=== PATIENT | female | born 1940 | race Hispanic/Latino ===

== ENCOUNTER 2017-10-28 00:47 | Emergency (ER) | payer MEDICARE, MEDICAID ==
[2017-10-28 00:59] VITALS: BMI 19.7
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
[2017-10-28 07:41] VITALS: BP 143/93; PULSE 94; RESP 16; TEMP 97.6; O2SAT 97
== END 2017-10-28 07:42 | disposition home or self-care (01) ==
LOC: ED 00:47
DX: L97.519 Non-pressure chronic ulcer of other part of right foot with unspecified severity (principal); I10 Essential (primary) hypertension; E78.00 Pure hypercholesterolemia, unspecified; E03.9 Hypothyroidism, unspecified

== ENCOUNTER 2017-10-31 22:54 | Inpatient (IN) | payer MEDICARE, MEDICAID ==
[2017-10-31 22:55] VITALS: BMI 19.7
--- NOTE | 2017-10-31 23:33 | ED PDOC ---
Arrival/HPI - General Chief Complaint: Lower Extremity Problem/Injury Time Seen by Provider: 10/31/17 23:21 Historian: Patient - History of Present Illness Narrative History of Present Illness (Text): 10/31/17 23:32 Yas Cash is a 77 year old female, whose past medical history includes MRSA to right foot, recent surgical removal of cancerous skin lesion to face, hypertension, anxiety, arthritis, bipolar disorder, gastric ulcer, and hypothyroidism, who presents to the Emergency department brought in by EMS complaining of right foot ulcer. Patient states she was recently discharged from [facility] following 2 week stay for treatment of right foot MRSA with antibiotics. Patient states she was placed on PO Cipro and Doxycycline , which she stopped taking because she denies any relief. Patient now complaining of worsening pain and redness to right foot ulcer, consistent with previous episodes of MRSA. Patient was advised by her PMD to come to the ER for further evaluation. Patient denies any recent trauma, decreased range of motion , weakness/numbness/tingling in the extremity, fever, chills, chest pain, shortness of breath, nausea, vomiting, dizziness, or any other complaints. Symptom Onset: Gradual Symptom Course: Unchanged Activities at Onset: Light Context: Home Past Medical History - Provider Review Nursing Documentation Reviewed: Yes - Infectious Disease Hx of Infectious Diseases: None - Cardiac Hx Cardiac Disorders: Yes Hx Hypertension: Yes Hx Peripheral Edema: Yes (chronic edema and redness) - Pulmonary Hx Respiratory Disorders: Yes Hx Pneumonia: Yes - Neurological Hx Neurological Disorder: Yes Hx Migraine: Yes - HEENT Hx HEENT Disorder: Yes Hx Cataracts: Yes (s/p surgery) - Renal Hx Renal Disorder: Yes Hx Pyelonephritis: Yes - Endocrine/Metabolic Hx Endocrine Disorders: Yes Hx Hypothyroidism: Yes - Hematological/Oncological Hx Cancer: No - Integumentary Hx Dermatological Disorder: No Other/Comment: 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 - Musculoskeletal/Rheumatological Hx Musculoskeletal Disorders: Yes Hx Arthritis: Yes Hx Fractures: Yes - Gastrointestinal Hx Gastrointestinal Disorders: Yes Hx Gastritis: Yes - Genitourinary/Gynecological Hx Genitourinary Disorders: No - Psychiatric Hx Psychophysiologic Disorder: Yes Hx Anxiety: Yes Hx Bipolar Disorder: Yes Hx Substance Use: No - Surgical History Hx Appendectomy: Yes Hx Cholecystectomy: Yes Hx Tonsillectomy: Yes - Anesthesia Hx Anesthesia: Yes Hx Anesthesia Reactions: No - Suicidal Assessment Feels Threatened In Home Enviroment: No Family/Social History - Physician Review Nursing Documentation Reviewed: Yes Family/Social History: Unknown Family HX Smoking Status: Never Smoked Hx Alcohol Use: No Hx Substance Use: No Hx Substance Use Treatment: No Allergies/Home Meds Allergies/Adverse Reactions: Allergies acetaminophen [From Percocet] Allergy (Verified 10/28/17 00:57) urticaria to "IV percocet" oxycodone HCl [From Percocet] Allergy (Verified 10/28/17 00:57) urticaria to "IV percocet" Sulfa (Sulfonamide Antibiotics) Allergy (Verified 10/28/17 00:57) SHORTNESS OF BREATH aspirin Adverse Reaction (Verified 10/28/17 00:57) pt has ulcer naproxen Adverse Reaction (Verified 10/28/17 00:57) pt has ulcer Home Medications: Home Meds Medication Instructions Recorded Confirmed Clonidine HCl [Clonidine HCl] 0.1 mg PO BID 08/23/14 07/14/15 Acetaminophen/Butalbital/Caf 1 tab PO DAILY PRN 07/14/15 07/14/15 [Fioricet] Cholecalciferol (Vitamin D3) 2,000 unit PO DAILY 07/14/15 07/14/15 [Vitamin D] Levothyroxine [Synthroid] 125 mcg PO DAILY 07/14/15 07/14/15 Lisinopril [Zestril] 10 mg PO DAILY 07/14/15 07/14/15 Ranitidine HCl [Zantac] 300 mg PO DAILY 07/14/15 07/14/15 Simvastatin [Zocor] 20 mg PO DAILY 07/14/15 07/14/15 Ubidecarenone [Coenzyme Q10] 200 mg PO DAILY 07/14/15 07/14/15 amLODIPine [Norvasc] 10 mg PO DAILY 07/14/15 07/14/15 Review of Systems - Physician Review All systems were reviewed & negative as marked: Yes - Review of Systems Constitutional: Normal. absent: Fevers Eyes: Normal ENT: Normal Respiratory: Normal. absent: SOB, Cough Cardiovascular: Normal. absent: Chest Pain Gastrointestinal: Normal. absent: Abdominal Pain, Diarrhea, Nausea, Vomiting Genitourinary Female: Normal. absent: Dysuria, Frequency, Hematuria, Urine Output Changes Musculoskeletal: Normal. absent: Back Pain, Neck Pain Skin: Other (+right foot MRSA) Neurological: Normal. absent: Headache, Dizziness Endocrine: Normal Hemo/Lymphatic: Normal Psychiatric: Normal Physical Exam Vital Signs Reviewed: Yes Vital Signs Temp Pulse Resp BP Pulse Ox 11/01/17 00:48 97.6 F 98 H 17 136/80 98 Temperature: Afebrile Blood Pressure: Normal Pulse: Regular Respiratory Rate: Normal Appearance: Positive for: Well-Appearing, Non-Toxic, Comfortable Pain Distress: None Mental Status: Positive for: Alert and Oriented X 3 - Systems Exam Head: Present: Normocephalic, Other (Surgical wound to left face with packing in place status post excision of skin cancer) Pupils: Present: PERRL Extroacular Muscles: Present: EOMI Conjunctiva: Present: Normal Mouth: Present: Moist Mucous Membranes Neck: Present: Normal Range of Motion Respiratory/Chest: Present: Clear to Auscultation, Good Air Exchange. No: Respiratory Distress, Accessory Muscle Use Cardiovascular: Present: Regular Rate and Rhythm, Normal S1, S2. No: Murmurs Abdomen: No: Tenderness, Distention, Peritoneal Signs Back: Present: Normal Inspection Upper Extremity: Present: Normal Inspection. No: Cyanosis, Edema Lower Extremity: Present: Normal ROM, Erythema (Dried ulcer to right foot with surrounding erythema and warmth), Neurovascularly Intact, Capillary Refill < 2 s. No: Edema, Tenderness, Swelling Neurological: Present: GCS=15, CN II-XII Intact, Speech Normal Skin: Present: Warm, Dry, Normal Color. No: Rashes Psychiatric: Present: Alert, Oriented x 3, Normal Insight, Normal Concentration Medical Decision Making ED Course and Treatment: 10/31/17 23:32 Impression: 77 year old female complaining of right foot MRSA. Plan: -- Labs, cardiac enzymes, blood cultures -- Vancomycin -- Zosyn -- Reassess and disposition Prior Visits: Notes and results from previous visits were reviewed. Progress Notes: 11/01/17 02:[address] Lebron, who's aware and agrees with plan. Accepts patient into her service. Patient will go to [facility] for cellulitis of the foot, history of MRSA. Requests Dr. Conroy on consult. - Lab Interpretations Lab Results: 10/31/17 23:36 10/31/17 23:36 Lab Results 10/31/17 23:36: WBC 12.9 H, RBC 4.18, Hgb 12.1, Hct 36.6, MCV 87.6, MCH 28.9, MCHC 33.1, RDW 16.0 H, Plt Count 400, MPV 9.5 10/31/17 23:36: Sodium 138, Potassium 4.2, Chloride 100, Carbon Dioxide 29, Anion Gap 14, BUN 44 H, Creatinine 0.7, Est GFR ( Amer) > 60, Est GFR ( Non-Af Amer) > 60, Random Glucose 122 H, Calcium 9.4, Total Bilirubin 0.5, AST 30, ALT 30, Alkaline Phosphatase 102, Total Protein 6.9, Albumin 4.1, Globulin 2.8, Albumin/Globulin Ratio 1.4 I have reviewed the lab results: Yes - Medication Orders Current Medication Orders: Discontinued Medications Vancomycin HCl (Vancomycin 1gm) 1 gm in 250 mls @ 167 mls/hr IVPB STAT STA PRN Reason: Protocol Stop: 11/01/17 01:10 Last Admin: 11/01/17 01:31 Dose: 167 mls/hr eMAR Start Stop Document 11/01/17 01:31 IT (Rec: 11/01/17 01:31 IT [id number]) Intravenous Solution Start Date 11/01/17 Start Time 01:31 Piperacillin Sod/Tazobactam Sod (Zosyn 3.375 In Ns 100ml) 100 mls @ 200 mls/hr IV STAT STA PRN Reason: Protocol Stop: 11/01/17 00:07 Last Admin: 11/01/17 00:23 Dose: 200 mls/hr eMAR Start Stop Document 11/01/17 00:23 IT (Rec: 11/01/17 00:23 IT [id number]) Intravenous Solution Start Date 11/01/17 Start Time 00:23 - Scribe Statement The provider has reviewed the documentation as recorded by the Sae Lafleur Provider Scribe Attestation: All medical record entries made by the Scribe were at my direction and personally dictated by me. I have reviewed the chart and agree that the record accurately reflects my personal performance of the history, physical exam, medical decision making, and the department course for this patient. I have also personally directed, reviewed, and agree with the discharge instructions and disposition. Disposition/Present on Arrival - Present on Arrival Any Indicators Present on Arrival: No History of DVT/PE: No History of Uncontrolled Diabetes: No Urinary Catheter: No History of Decub. Ulcer: No History Surgical Site Infection Following: None - Disposition Have Diagnosis and Disposition been Completed?: Yes Diagnosis: Cellulitis, MRSA cellulitis Disposition: HOSPITALIZED Disposition Time: 02:38 Patient Problems: Current Active Problems Problem Status Onset Cellulitis Acute Condition: STABLE Discharge Instructions (ExitCare): Cellulitis (ED) Forms: [employer] (Albanian)
[2017-10-31] MEDS ORDERED: Piperacillin/Tazobact 3.375 gm 100 ML IV STA (23:38)
[2017-10-31] MEDS ORDERED: Vancomycin 1gm in NS 250ml 1 GM/250 ML BAG IVPB STA (23:41)
[2017-11-01 00:18] LABS: HEMOGLOBIN 12.1 g/dL (12.0-16.0); MEAN CELL VOLUME 87.6 fl (80.0-105.0); MEAN CORPUSCULAR HEMOGLOBIN 28.9 pg (25.0-35.0); MEAN CORPUSCULAR HGB CONC 33.1 g/dl (31.0-37.0); MEAN PLATELET VOLUME 9.5 fl (7.0-11.0); RBC 4.18 10^6/uL (3.5-6.1); WHITE BLOOD COUNT 12.9 10^3/ul (4.5-11.0)
[2017-11-01 00:25] LABS: ALB/GLOB RATIO 1.4 (1.1-1.8); ALBUMIN 4.1 g/dL (3.0-4.8); CALCIUM 9.4 mg/dL (8.4-10.5); GFR AFRICAN-AMERICAN > 60; GFR NON-AFRICAN AMERICAN > 60
[2017-11-01 00:28] LABS: ALT/SGPT 30 U/L (7-56); AST/SGOT 30 U/L (14-36); BLOOD UREA NITROGEN 44 mg/dL (7-21)
[2017-11-01] MEDS ORDERED: Sodium Chloride 0.9% 1,000 ML IV STA (02:38)
[2017-11-01] MEDS ORDERED: Apap-Butalbital-Caffeine 325-50-40mg Tab PO ONE (06:25)
[2017-11-01] MEDS ORDERED: Apap-Butalbital-Caffeine 325-50-40mg Tab PO PRN ×2 (11:43→12:52)
[2017-11-01] MEDS ORDERED: Levothyroxine 125 MCG TAB PO SCH (13:00)
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
[2017-11-01] MEDS: Cefepime 1gm in NS 100ml 1 GM/100 ML BAG IVPB SCH ×2 (14:45→22:46)
--- NOTE | 2017-11-01 15:57 | CON ---
DATE: 11/01/2017 LOCATION: The patient is seen earlier this morning in room 371, bed 2. CHIEF COMPLAINT: Right ankle erythema times several days. HISTORY OF PRESENT ILLNESS: This is a 77-year-old female with a history of MRSA of the right foot, history of cancer of the skin, cancer of the face, she had biopsy with resection, gastric ulcer, hypertension, anxiety, arthritis, bipolar, hypothyroidism, peripheral edema, history of E. coli urinary tract infection in 2014. Admitted on this admission with erythema of the right medial aspect of the right ankle. REVIEW OF SYSTEMS: Reveals no fevers and no chills. No nausea or vomiting. No chest pain. No abdominal pain, diarrhea or constipation. Review of systems reveals 12-point review of systems is performed. PAST MEDICAL HISTORY: Significant for hypertension, bipolar, hypothyroidism, skin cancer of the face, anxiety, arthritis and peripheral edema and a history of E. coli urinary tract infection in 2014. PAST SURGICAL HISTORY: Significant for appendectomy, cholecystectomy. ALLERGIES: THE PATIENT IS ALLERGIC TO SULFA, ASPIRIN, NAPROXEN AND OXYCODONE. MEDICATIONS AT HOME: Reveal the patient to be on tramadol, Norvasc, Zocor, Zantac. PHYSICAL EXAMINATION: GENERAL: The patient is in bed, in no acute distress. VITAL SIGNS: Temperature of 97, blood pressure is 120/80, respiratory rate of 18, heart rate 98-106. HEENT: Examination of HEENT is unremarkable. NECK: Supple. LUNGS: Have decreased breath sounds. HEART: Normal S1 and S2. ABDOMEN: Soft, nontender. No organomegaly. No rebound. No guarding. No masses. EXTREMITIES: Examination of right ankle, medial aspect of the ankle is red, warm to touch. No discharge. LABORATORY DATA: Laboratory examination reveals a white count of 12,900, hemoglobin of 12, platelets of 400,000. BUN of 44, creatinine 0.7, glucose is 122. Microbiology is pending. The patient ER. ASSESSMENT AND PLAN: A 77-year-old female with history of methicillin-resistant Staphylococcus aureus of the right foot and cancer of the face, hypertension, gastric ulcer, anxiety, arthritis, bipolar, hypothyroidism, peripheral edema, Escherichia coli urinary tract infection with sepsis with right ankle cellulitis and right medial ankle cellulitis. We will start the patient on vancomycin and Maxipime. Must rule out underlying osteomyelitis and underlying peripheral arterial disease. Should have arterial ultrasound, Dopplers. We will measure the ankle-brachial indexes and venous Dopplers to rule out a deep venous thrombosis. Should have an MRI of the ankle to rule out osteomyelitis. Sed rate, C-reactive protein have been ordered by Dr. Lebron. Should have a hemoglobin A1c to rule out diabetes mellitus. We will make further recommendations on availability of these results. Timothy Conroy MD
[2017-11-01] MEDS: Apap-Butalbital-Caffeine 325-50-40mg Tab PO PRN ×2 (16:55→22:52)
[2017-11-01] MEDS: Vancomycin 1gm in NS 250ml 1 GM/250 ML BAG IVPB SCH (16:56)
[2017-11-01] MEDS: CLONIDINE HCL 0.1 MG PO SCH (17:00)
[2017-11-01] MEDS: Bacitracin Ointment 30 GM TUBE TOP SCH (17:00)
--- NOTE | 2017-11-01 17:19 | RAD ---
Date of service: 11/01/2017 PROCEDURE: Right Foot Radiographs. HISTORY: right heel ulcer COMPARISON: None. FINDINGS: BONES: Normal. No fracture. JOINTS: Normal. SOFT TISSUES: Normal. OTHER FINDINGS: None. IMPRESSION: No acute findings related to/accounting for the clinical presentation.
--- NOTE | 2017-11-01 17:20 | RAD ---
Date of service: 11/01/2017 PROCEDURE: Right Ankle Radiographs. HISTORY: right heel ulcer COMPARISON: None FINDINGS: BONES: Normal. No fracture. JOINTS: Normal. No osteoarthritis. Ankle mortise maintained. Talar dome intact SOFT TISSUES: Soft tissue swelling adjacent to the distal tibia and fibula posteriorly. OTHER FINDINGS: None. IMPRESSION: Soft tissue swelling without acute articular or osseous abnormality.
[2017-11-01] MEDS ORDERED: Piperacillin/Tazobact 3.375 gm 100 ML IVPB SCH (18:00)
--- NOTE | 2017-11-01 20:10 | US ---
HISTORY: Leg pain and swelling. Evaluate for DVT PHYSICIAN(S): Pankaj Decker MD. TECHNIQUE: Duplex sonography and color-flow Doppler with graded compression were used to evaluate the deep venous systems of both lower extremities. FINDINGS: The visualized deep venous systems of both lower extremities are sonographically normal and compressible. Normal wave forms and augmentation are seen. There is no sonographic evidence for deep venous thrombosis in the visualized segments of both lower extremities. IMPRESSION: No sonographic evidence for deep venous thrombosis in the visualized segments of both lower extremities.
[2017-11-02] MEDS ORDERED: DiphenhydrAMINE 50 mg/ml Inj IVP ONE ×2 (00:58→23:33)
[2017-11-02] MEDS: Vancomycin 1gm in NS 250ml 1 GM/250 ML BAG IVPB SCH ×2 (01:11→17:23)
[2017-11-02] MEDS: Apap-Butalbital-Caffeine 325-50-40mg Tab PO PRN ×3 (06:41→21:47)
[2017-11-02] MEDS: Levothyroxine 125 MCG TAB PO SCH (06:41)
[2017-11-02 07:19] LABS: BASO # 0.04 K/mm3 (0.0-2.0); BASO % 0.6 % (0.0-3.0); EOS # 0.3 (0.0-0.7); EOS % 4.3 % (1.5-5.0); GRAN # 4.66 (1.4-6.5); GRAN % 68.9 % (50.0-68.0); HEMOGLOBIN 11.1 g/dL (12.0-16.0); LYMPH # 0.9 (1.2-3.4); LYMPH % 13.5 % (22.0-35.0); MEAN CELL VOLUME 88.3 fl (80.0-105.0); MEAN CORPUSCULAR HEMOGLOBIN 28.2 pg (25.0-35.0); MEAN CORPUSCULAR HGB CONC 31.9 g/dl (31.0-37.0); MEAN PLATELET VOLUME 9.1 fl (7.0-11.0); MONO # 0.9 (0.1-0.6); MONO % 12.7 % (1.0-6.0); RBC 3.94 10^6/uL (3.5-6.1); RED CELL DISTRIBUTION WIDTH 15.6 % (11.5-14.5); WHITE BLOOD COUNT 6.8 10^3/ul (4.5-11.0)
[2017-11-02] MEDS: Cefepime 1gm in NS 100ml 1 GM/100 ML BAG IVPB SCH ×3 (07:32→21:44)
[2017-11-02 07:50] LABS: FREE T4 1.32 ng/dL (0.78-2.19)
[2017-11-02] MEDS: CLONIDINE HCL 0.1 MG PO SCH (09:15)
--- NOTE | 2017-11-02 09:44 | CON ---
DATE: 11/01/2017 HISTORY OF PRESENT ILLNESS: A 77-year-old female patient seen at bedside for consultation, evaluation, and management of a chronic recurring left medial heel ulceration. She states that she has had the wound for over a year and it tends to open and close periodically. She has been admitted to [facility] several times in the past and is quite unhappy with the care and service there. She states that she is having a great deal of pain in the medial right heel. She states that the ulceration was caused by trauma over 1 year ago. MEDICAL HISTORY: Significant for bipolar disorder, hypothyroidism, essential hypertension, cardiac disease, chronic peripheral edema, migraines, cataracts, anxiety, and osteoarthritis. PAST SURGICAL HISTORY: Includes appendectomy and cholecystectomy as well as cataract surgery. SOCIAL HISTORY: She denies illicit drug use, denies alcohol abuse, and never smoked. She is not . FAMILY HISTORY: Noncontributory. ALLERGIES: INCLUDE ASPIRIN, SULFA, OXYCODONE, ACETAMINOPHEN, AND NAPROXEN. HOME MEDICATIONS: Include clonidine, Fioricet, Synthroid, Zestril, Zantac, Zocor, and Norvasc. PHYSICAL EXAMINATION: VITAL SIGNS: Reveal temperature of 97.8, pulse rate of 106, blood pressure of 134/94, respiratory rate of 20. LABORATORY FINDINGS: Reveal a white count of 12.9, hemoglobin of 12.1, hematocrit of 36.6, and platelet count of 400. There is no microbiology report noted. Venous Doppler was taken, results are pending. OBJECTIVE: Palpable pedal pulses noted bilaterally. Decreased protective sensation noted bilaterally using 5.07 g monofilament wire testing, +1 nonpitting lower extremity edema noted bilaterally. Lower extremity skin presents thin, shiny, and discolored. Capillary filling time is within normal limits x10. There is a full-thickness ulceration located in the medial aspect of the right heel that measures approximately 2.5 cm x 1 cm x 0.2 cm. Base of the ulceration is primarily fibrotic. There is no purulence to suggest underlying abscess formation. The wound does not probe tendon or bone. Area surrounding the wound is edematous and erythematous with exquisite pain upon palpation. There is no pain at the gastrocsoleus complex DVT. There are no signs of ascending cellulitis. ASSESSMENT: Full-thickness ulceration of the right medial heel with accompanying cellulitis. PLAN: The patient was examined. Culture was taken and submitted for sensitivities. We will order x-rays and arterial Doppler's and ascertain lower extremity perfusion. The patient is currently on vancomycin and Zosyn empirically. Sed rate has been ordered as well as CRP and a hemoglobin A1c. We will order Santyl ointment and refer to symptomatically debride the fibrotic tissue that is present. The patient will be seen and followed daily. We will await culture and sensitivity results. Recommend Infectious Disease consult as well as Vascular consult with Dr. Pankaj Decker. Delta Bey DPM [facility]
--- NOTE | 2017-11-02 14:34 | CP.PCM.PN ---
Subjective - Date & Time of Evaluation Date of Evaluation: 11/02/17 Time of Evaluation: 10:45 - Subjective Subjective: Chronically ill but not in distress, no fevers. Objective - Vital Signs/Intake and Output Vital Signs (last 24 hours): Temp Pulse Resp BP Pulse Ox 98.2 F 83 20 134/84 96 11/02/17 06:00 11/02/17 09:52 11/02/17 06:00 11/02/17 09:52 11/02/17 06:00 Intake and Output: 11/02/17 11/02/17 06:59 18:59 Output Total 800 Balance -800 - Medications Medications: Current Medications Acetaminophen/Butalbital/Caffeine (Fioricet) 1 tab PO Q6 PRN PRN Reason: Pain, moderate (4-7), Headache Last Admin: 11/02/17 12:38 Dose: 1 tab Amlodipine Besylate (Norvasc) 10 mg PO DAILY [facility] Last Admin: 11/02/17 09:14 Dose: 10 mg Atorvastatin Calcium (Lipitor) 10 mg PO DAILY [facility] Last Admin: 11/02/17 09:19 Dose: Not Given Bacitracin (Bacitracin) 0 gm TOP BID [facility] Last Admin: 11/01/17 17:00 Dose: Not Given Clonidine HCl (Catapres) 0.1 mg PO BID [facility] Last Admin: 11/02/17 09:52 Dose: 0.1 mg Famotidine (Pepcid) 40 mg PO 1000 [facility] Last Admin: 11/02/17 09:13 Dose: 40 mg Vancomycin HCl (Vancomycin 1gm) 1 gm in 250 mls @ 167 mls/hr IVPB Q12H [facility] PRN Reason: Protocol Stop: 11/10/17 13:16 Last Admin: 11/02/17 01:11 Dose: 167 mls/hr Cefepime HCl (Maxipime 1gm) 1 gm in 100 mls @ 100 mls/hr IVPB Q8 [facility] PRN Reason: Protocol Stop: 11/10/17 14:01 Last Admin: 11/02/17 07:32 Dose: 100 mls/hr Levothyroxine Sodium (Synthroid) 125 mcg PO 0600 [facility] Last Admin: 11/02/17 06:41 Dose: 125 mcg Lisinopril (Zestril) 10 mg PO DAILY [facility] Last Admin: 11/02/17 09:14 Dose: 10 mg Tramadol HCl (Ultram) 50 mg PO Q8 [facility] Last Admin: 11/02/17 06:43 Dose: Not Given - Labs Labs: 11/02/17 06:30 - Constitutional Appears: Chronically Ill - Head Exam Head Exam: NORMAL INSPECTION - Respiratory Exam Respiratory Exam: Decreased Breath Sounds - Cardiovascular Exam Cardiovascular Exam: +S1, +S2 - GI/Abdominal Exam GI & Abdominal Exam: Soft. absent: Tenderness Assessment and Plan - Assessment and Plan (Free Text) Plan: Assessment sepsis due to right ankle cellulitis with right heel deep ulcer R/O osteomyelitis, R/O PAD HTN bipolar disorder hypothyroidism skin cancer on the face anxiety disorder arthritis history of E. coli UTI S/P cholecystectomy S/P appendectomy Plan continue Vancomycin and Cefepime day 2 pending final wound culture results ( showing gram negative bacilli on gram stain) - may need MRI of foot and STEPHANIE's follow up further plans of Podiatry will monitor clinically
[2017-11-02] MEDS: Bacitracin Ointment 30 GM TUBE TOP SCH ×2 (15:59→17:17)
[2017-11-02] MEDS: Morphine 2 mg/ml ISec IVP PRN (17:14)
--- NOTE | 2017-11-02 20:12 | US ---
PROCEDURE: Lower extremity STEPHANIE exam HISTORY: Peripheral vascular disease with pain and ulceration pain and claudication. PHYSICIAN(S): Pankaj Decker MD. FINDINGS: The resting STEPHANIE's are normal: right, 1.20and left, 1.42. The brachial systolic pressures are symmetric. The high thigh pressures and waveforms are relatively normal. The calf PVR waveforms augment normally. No significant gradients are noted across the thighs. The ankle and metatarsal waveforms are relatively normal and symmetric. No significant pressure gradients are noted across the lower legs. IMPRESSION: 1. Relatively normal STEPHANIE and PVR examination at rest.
--- NOTE | 2017-11-02 20:20 | PN ---
DATE: 11/02/2017 SUBJECTIVE: Patient is 77 years old, seen and examined lying in bed, seems to be comfortable. Denies any nausea or vomiting. Eating and tolerating. No fever, no chills. PHYSICAL EXAMINATION: VITAL SIGNS: She is afebrile, pulse 91, respiration 20, and blood pressure 126/86. LUNGS: Bilateral fair airflow. No rhonchi or crackle. HEART: S1, S2 audible. ABDOMEN: Soft, nontender. No rebound. No guarding. NEUROLOGIC: Patient is awake, alert, oriented, able to communicate. Moves all extremities. EXTREMITIES: Her right foot is in the dressing. LABORATORY DATA: WBC 6.8, hemoglobin 11, hematocrit 34, and platelet of 335. ESR 20. Her C-reactive protein is more than 15. She has arterial Doppler done, results are pending. MRI of the foot is pending. ASSESSMENT: 1. Right foot chronic ulcer. 2. Rule out peripheral vascular disease. 3. Hypertension. 4. Hyperlipidemia. PLAN: Currently, patient is on Maxipime and she is on vancomycin. We will follow up her MRI and make further recommendations. Continue local wound care and antibiotics for now. Salomón Lebron MD
[2017-11-03] MEDS: Vancomycin 1gm in NS 250ml 1 GM/250 ML BAG IVPB SCH ×2 (01:55→13:43)
[2017-11-03] MEDS: Apap-Butalbital-Caffeine 325-50-40mg Tab PO PRN ×3 (04:08→20:16)
[2017-11-03] MEDS: Cefepime 1gm in NS 100ml 1 GM/100 ML BAG IVPB SCH ×3 (06:03→21:06)
[2017-11-03] MEDS: Morphine 2 mg/ml ISec IVP PRN ×3 (06:04→18:32)
[2017-11-03] MEDS: Levothyroxine 125 MCG TAB PO SCH (06:47)
[2017-11-03] MEDS: Bacitracin Ointment 30 GM TUBE TOP SCH ×2 (09:44→17:36)
[2017-11-03] MEDS: Enoxaparin 30 mg Syringe SC SCH (09:45)
--- NOTE | 2017-11-03 13:14 | CP.PCM.PN ---
<Bib Valentin - Last Filed: 11/03/17 13:11> Subjective - Date & Time of Evaluation Date of Evaluation: 11/03/17 Time of Evaluation: 12:11 - Subjective Subjective: Podiatry Progress Note- Dr. Amaral/Dr. Bey 77 y/o female seen and evaluated at bedside with attending Dr. Amaral for right foot ulceration. Patient reports pain to the right foot. Reports pain has increased since the ABIs/PVRs testing yesterday. Denies of any calf pain or tenderness. Denies nausea, fever, shortness of breath, chest pain or chills. No other pedal complaints at this time. Objective - Vital Signs/Intake and Output Vital Signs (last 24 hours): Temp Pulse Resp BP Pulse Ox 97.7 F 78 20 133/86 96 11/03/17 06:00 11/03/17 06:00 11/03/17 06:00 11/03/17 09:45 11/03/17 06:00 - Medications Medications: Current Medications Acetaminophen/Butalbital/Caffeine (Fioricet) 1 tab PO Q6 PRN PRN Reason: Pain, moderate (4-7), Headache Last Admin: 11/03/17 09:44 Dose: 1 tab Amlodipine Besylate (Norvasc) 10 mg PO DAILY [facility] Last Admin: 11/03/17 09:45 Dose: 10 mg Atorvastatin Calcium (Lipitor) 10 mg PO DAILY [facility] Last Admin: 11/03/17 09:51 Dose: Not Given Bacitracin (Bacitracin) 0 gm TOP BID [facility] Last Admin: 11/03/17 09:44 Dose: Not Given Clonidine HCl (Catapres) 0.1 mg PO BID [facility] Last Admin: 11/03/17 09:44 Dose: 0.1 mg Collagenase (Santyl) 1 gm TOP DAILY [facility] Enoxaparin Sodium (Lovenox) 30 mg SC DAILY [facility] PRN Reason: Protocol Last Admin: 11/03/17 09:45 Dose: 30 mg Famotidine (Pepcid) 40 mg PO 1000 [facility] Last Admin: 11/03/17 09:45 Dose: 40 mg Vancomycin HCl (Vancomycin 1gm) 1 gm in 250 mls @ 167 mls/hr IVPB Q12H [facility] PRN Reason: Protocol Stop: 11/10/17 13:16 Last Admin: 11/03/17 01:55 Dose: 167 mls/hr Cefepime HCl (Maxipime 1gm) 1 gm in 100 mls @ 100 mls/hr IVPB Q8 [facility] PRN Reason: Protocol Stop: 11/10/17 14:01 Last Admin: 11/03/17 06:03 Dose: 100 mls/hr Levothyroxine Sodium (Synthroid) 125 mcg PO 0600 [facility] Last Admin: 11/03/17 06:47 Dose: 125 mcg Lisinopril (Zestril) 10 mg PO DAILY [facility] Last Admin: 11/03/17 09:45 Dose: 10 mg Morphine Sulfate (Morphine) 2 mg IVP Q6H PRN PRN Reason: Pain, moderate (4-7) Last Admin: 11/03/17 12:12 Dose: 2 mg Tramadol HCl (Ultram) 50 mg PO Q8 [facility] Last Admin: 11/03/17 06:04 Dose: Not Given - Constitutional Appears: Well, Non-toxic, No Acute Distress - Extremities Exam Extremities Exam: absent: Calf Tenderness Additional comments: VASC: DP and PT 2/4 bilaterally, CFT < 3 seconds x 10 digits, temperature gradient warm to cool from proximal to distal, +1 edema noted to the lower extremity ORTHO: severe pain with palpation surrounding ulceration site, MM is 4/5 in all four compartments: dorsiflexion, plantarflexion, inversion and eversion NEURO: protective and gross sensation intact DERM: ulceration noted to right medial ankle inferior to the medial malleolus measuring approximately 2.5 x 1 x .2cm, full thickness wound, with wound base being 100% fibrous, mild serous drainage noted, mild periwound erythema, no streaking, no tunneling, no undermining, no probe to bone - Psychiatric Exam Psychiatric exam: Normal Affect, Normal Mood Assessment and Plan - Assessment and Plan (Free Text) Assessment: 77 y.o female with right medial heel full thickness ulceration likely secondary to venous insufficiency, now with accompanying cellulitis- resolving Plan: Patient examined and evaluated with attending Dr. Amaral Labs, chart, vitals reviewed- afebrile, absent leukocytosis WBC=6.8 Right foot X-rays reviewed- soft tissue swelling without acute articular or osseous abnormality Duplex U/S (-) DVT ABIs/PVRS Right= 1.20, Left=1.42. Impression relatively normal STEPHANIE and PVR examiantion at rest Wound culture- Pseudomonas Aeruginosa C/w abx per ID Ordered Santyl Cleansed ulceration with saline solution, applied dsd, and kerlix WBAT in surgical shoe to the right MRI ordered-pending to r/o OM Will continue to follow patient while in house <Lydia Amaral - Last Filed: 11/06/17 16:48> Objective - Vital Signs/Intake and Output Vital Signs (last 24 hours): Temp Pulse Resp BP Pulse Ox 97.0 F L 72 20 118/77 100 11/06/17 05:00 11/06/17 10:30 11/06/17 05:00 11/06/17 10:30 11/06/17 05:00 Intake and Output: 11/06/17 11/06/17 06:59 18:59 Intake Total 660 Balance 660 - Labs Labs: 11/04/17 10:10 11/04/17 10:10 Attending/Attestation - Attestation I have personally seen and examined this patient.: Yes I have fully participated in the care of the patient.: Yes I have reviewed all pertinent clinical information, including history, physical exam and plan: Yes
[2017-11-03] MEDS: Collagenase 250 Units/gm Ointment(30 gm) TOP SCH (13:27)
--- NOTE | 2017-11-03 14:56 | CP.PCM.PN ---
Subjective - Date & Time of Evaluation Date of Evaluation: 11/03/17 Time of Evaluation: 10:45 - Subjective Subjective: Still with pain in the right foot, no fevers, not in distress. Will get MRI of the foot today. Objective - Vital Signs/Intake and Output Vital Signs (last 24 hours): Temp Pulse Resp BP Pulse Ox 97.7 F 91 H 20 126/86 96 11/02/17 18:00 11/02/17 18:00 11/02/17 18:00 11/02/17 18:00 11/02/17 18:00 Intake and Output: 11/03/17 11/03/17 06:59 18:59 Intake Total 360 Output Total 200 Balance 160 - Medications Medications: Current Medications Acetaminophen/Butalbital/Caffeine (Fioricet) 1 tab PO Q6 PRN PRN Reason: Pain, moderate (4-7), Headache Last Admin: 11/03/17 04:08 Dose: 1 tab Amlodipine Besylate (Norvasc) 10 mg PO DAILY [facility] Last Admin: 11/02/17 09:14 Dose: 10 mg Atorvastatin Calcium (Lipitor) 10 mg PO DAILY [facility] Last Admin: 11/02/17 09:19 Dose: Not Given Bacitracin (Bacitracin) 0 gm TOP BID [facility] Last Admin: 11/02/17 17:17 Dose: Not Given Clonidine HCl (Catapres) 0.1 mg PO BID [facility] Last Admin: 11/02/17 17:23 Dose: 0.1 mg Enoxaparin Sodium (Lovenox) 30 mg SC DAILY [facility] PRN Reason: Protocol Famotidine (Pepcid) 40 mg PO 1000 [facility] Last Admin: 11/02/17 09:13 Dose: 40 mg Vancomycin HCl (Vancomycin 1gm) 1 gm in 250 mls @ 167 mls/hr IVPB Q12H [facility] PRN Reason: Protocol Stop: 11/10/17 13:16 Last Admin: 11/03/17 01:55 Dose: 167 mls/hr Cefepime HCl (Maxipime 1gm) 1 gm in 100 mls @ 100 mls/hr IVPB Q8 [facility] PRN Reason: Protocol Stop: 11/10/17 14:01 Last Admin: 11/03/17 06:03 Dose: 100 mls/hr Levothyroxine Sodium (Synthroid) 125 mcg PO 0600 [facility] Last Admin: 11/03/17 06:47 Dose: 125 mcg Lisinopril (Zestril) 10 mg PO DAILY [facility] Last Admin: 11/02/17 09:14 Dose: 10 mg Morphine Sulfate (Morphine) 2 mg IVP Q6H PRN PRN Reason: Pain, moderate (4-7) Last Admin: 11/03/17 06:04 Dose: 2 mg Tramadol HCl (Ultram) 50 mg PO Q8 [facility] Last Admin: 11/03/17 06:04 Dose: Not Given - Labs Labs: 11/02/17 06:30 - Constitutional Appears: Non-toxic, Chronically Ill - Head Exam Head Exam: NORMAL INSPECTION - Respiratory Exam Respiratory Exam: Decreased Breath Sounds - Cardiovascular Exam Cardiovascular Exam: +S1, +S2 - GI/Abdominal Exam GI & Abdominal Exam: Soft. absent: Tenderness - Extremities Exam Additional comments: right foot with dressings in place Assessment and Plan - Assessment and Plan (Free Text) Plan: Assessment sepsis due to right ankle cellulitis with right heel deep ulcer R/O osteomyelitis, R/O PAD HTN bipolar disorder hypothyroidism skin cancer on the face anxiety disorder arthritis history of E. coli UTI S/P cholecystectomy S/P appendectomy Plan continue Vancomycin and Cefepime day 3 pending final wound culture results ( showing gram negative bacilli on gram stain) - will get MRI of foot and STEPHANIE's follow up further plans of Podiatry will continue to monitor clinically discussed with Dr. Lebron
--- NOTE | 2017-11-03 16:01 | MRI ---
Date of service: 11/03/2017 PROCEDURE: MRI of the right foot without contrast HISTORY: r/o osteo COMPARISON: TECHNIQUE: MRI of the right hindfoot was performed in multiple planes using multiple pulse sequences. FINDINGS: There is no marrow edema to suggest osteomyelitis. There is no evidence of cellulitis. The Achilles tendon and plantar fascia are normal. The medial and lateral ankle tendons and ligaments are normal. IMPRESSION: Negative study
[2017-11-04] MEDS: Vancomycin 1gm in NS 250ml 1 GM/250 ML BAG IVPB SCH ×2 (00:23→12:26)
[2017-11-04] MEDS: Apap-Butalbital-Caffeine 325-50-40mg Tab PO PRN ×3 (00:32→18:21)
[2017-11-04] MEDS: Morphine 2 mg/ml ISec IVP PRN ×4 (03:15→22:16)
[2017-11-04] MEDS ORDERED: DiphenhydrAMINE 50 mg/ml Inj IVP ONE ×2 (03:41→21:36)
--- NOTE | 2017-11-04 04:00 | CP.PCM.PN ---
Subjective - Date & Time of Evaluation Date of Evaluation: 11/04/17 Time of Evaluation: 03:56 - Subjective Subjective: S:It was requested to insert a heparin lock. Patient complaints of itching all over body. Received PO benadryl earlier. Still has itching . Has no other complaints.No sob, no wheezing. O: Last Vital Signs 3 Temp 97.6 F 11/03/17 17:55 Pulse 81 11/03/17 17:55 Resp 19 11/03/17 17:55 BP 123/76 11/03/17 17:55 Pulse Ox 95 11/03/17 17:55 Awake, alert, not in distress. LUNGS: Normal breathing pattern. Skin: No rashes noted. A:Poor venous access. Generalized itching P:# 22 angiocath was inserted in left forearm. Benadryl 25 mg IV x 1. Benadryl 25 mg PO was ordered earlier. Objective - Vital Signs/Intake and Output Vital Signs (last 24 hours): Temp Pulse Resp BP Pulse Ox 97.6 F 81 19 123/76 95 11/03/17 17:55 11/03/17 17:55 11/03/17 17:55 11/03/17 17:55 11/03/17 17:55 Intake and Output: 11/03/17 11/04/17 18:59 06:59 Output Total 400 Balance -400 - Medications Medications: Current Medications Acetaminophen/Butalbital/Caffeine (Fioricet) 1 tab PO Q6 PRN PRN Reason: Pain, moderate (4-7), Headache Last Admin: 11/04/17 00:32 Dose: 1 tab Amlodipine Besylate (Norvasc) 10 mg PO DAILY [facility] Last Admin: 11/03/17 09:45 Dose: 10 mg Atorvastatin Calcium (Lipitor) 10 mg PO DAILY [facility] Last Admin: 11/03/17 09:51 Dose: Not Given Bacitracin (Bacitracin) 0 gm TOP BID [facility] Last Admin: 11/03/17 17:36 Dose: Not Given Clonidine HCl (Catapres) 0.1 mg PO BID [facility] Last Admin: 11/03/17 17:27 Dose: 0.1 mg Collagenase (Santyl) 1 gm TOP DAILY [facility] Last Admin: 11/03/17 13:27 Dose: 1 appful Enoxaparin Sodium (Lovenox) 30 mg SC DAILY [facility] PRN Reason: Protocol Last Admin: 11/03/17 09:45 Dose: 30 mg Famotidine (Pepcid) 40 mg PO 1000 [facility] Last Admin: 11/03/17 09:45 Dose: 40 mg Vancomycin HCl (Vancomycin 1gm) 1 gm in 250 mls @ 167 mls/hr IVPB Q12H [facility] PRN Reason: Protocol Stop: 11/10/17 13:16 Last Admin: 11/04/17 00:23 Dose: 167 mls/hr Cefepime HCl (Maxipime 1gm) 1 gm in 100 mls @ 100 mls/hr IVPB Q8 [facility] PRN Reason: Protocol Stop: 11/10/17 14:01 Last Admin: 11/03/17 21:06 Dose: 100 mls/hr Levothyroxine Sodium (Synthroid) 125 mcg PO 0600 [facility] Last Admin: 11/03/17 06:47 Dose: 125 mcg Lisinopril (Zestril) 10 mg PO DAILY [facility] Last Admin: 11/03/17 09:45 Dose: 10 mg Morphine Sulfate (Morphine) 2 mg IVP Q6H PRN PRN Reason: Pain, moderate (4-7) Last Admin: 11/04/17 03:15 Dose: 2 mg Tramadol HCl (Ultram) 50 mg PO Q8 [facility] Last Admin: 11/03/17 21:06 Dose: 50 mg
[2017-11-04] MEDS: Levothyroxine 125 MCG TAB PO SCH (05:28)
[2017-11-04] MEDS: Cefepime 1gm in NS 100ml 1 GM/100 ML BAG IVPB SCH ×3 (05:28→22:16)
--- NOTE | 2017-11-04 08:10 | PN ---
DATE: 11/03/2017 SUBJECTIVE: The patient is 77-year-old, seen and examined, complained of having pain in the right ankle area since she has arterial Doppler done, provoke, eating well. No nausea, vomiting, or diarrhea. PHYSICAL EXAMINATION VITAL SIGNS: The patient is afebrile, pulse 78, respiration 20, and blood pressure 133/86. LUNGS: Bilateral good airflow. No rhonchi or crackle. HEART: S1 and S2 audible. ABDOMEN: Soft, nontender. No rebound. No guarding. NEUROLOGIC: The patient is awake, alert, oriented, able to communicate. LABORATORY DATA: Her CRP is more than 15. Right foot wound culture growing Pseudomonas aeruginosa. Blood cultures are negative. She has arterial Doppler done that shows normal STEPHANIE and PVR examination. ASSESSMENT: 1. Chronic right medial malleolar nonhealing ulcer, status post trauma almost a year ago. 2. Mild peripheral vascular disease. 3. Hypertension. 4. Hypothyroidism. PLAN: Currently, the patient is on Maxipime. She is on amlodipine. She is on levothyroxine and vancomycin. Awaiting MRI reports. I will request for TCU evaluation. If accepted, can be transferred to TCU. Salomón Lebron MD
[2017-11-04] MEDS: Enoxaparin 30 mg Syringe SC SCH (10:01)
[2017-11-04] MEDS: Bacitracin Ointment 30 GM TUBE TOP SCH ×2 (10:03→18:20)
[2017-11-04] MEDS: Collagenase 250 Units/gm Ointment(30 gm) TOP SCH (10:14)
[2017-11-04 10:24] LABS: MEAN CELL VOLUME 88.1 fl (80.0-105.0); MEAN CORPUSCULAR HEMOGLOBIN 28.6 pg (25.0-35.0); MEAN CORPUSCULAR HGB CONC 32.5 g/dl (31.0-37.0); MEAN PLATELET VOLUME 9.3 fl (7.0-11.0); RBC 4.19 10^6/uL (3.5-6.1); RED CELL DISTRIBUTION WIDTH 15.3 % (11.5-14.5); WHITE BLOOD COUNT 7.4 10^3/ul (4.5-11.0)
[2017-11-04 10:39] LABS: ALB/GLOB RATIO 1.4 (1.1-1.8); ALT/SGPT 32 U/L (7-56); AST/SGOT 24 U/L (14-36); BLOOD UREA NITROGEN 19 mg/dL (7-21); CALCIUM 9.4 mg/dL (8.4-10.5); GFR AFRICAN-AMERICAN > 60; GFR NON-AFRICAN AMERICAN > 60
--- NOTE | 2017-11-04 11:46 | PN ---
DATE: 11/04/2017 HISTORY OF PRESENT ILLNESS: Ms. Cash is a 77-year-old female, admitted to the hospital with right malleolar foot ulcer. She was evaluated by casting operator. Currently had an MRI of the foot to rule out osteomyelitis. She is currently on IV antibiotics. She has history of hypothyroidism, currently controlled with current medications. History of hypertension, blood pressure under control. Stable condition. Recent history of skin cancer on the left cheek. She also has history of bipolar disorder. No acute issues. PAST MEDICAL HISTORY: Osteoarthritis, bipolar, hypertension, cancer on the left cheek, history of peptic ulcer disease, hypothyroidism, cholecystectomy, appendectomy. PAST SURGICAL HISTORY: Cholecystectomy, appendectomy. ALLERGIES: ALLERGY TO OXYCODONE, SULFA, ASPIRIN, NAPROXEN. HOME MEDICATION: Tramadol, amlodipine, , simvastatin, Ventolin, lisinopril, levothyroxine, clonidine, vitamin D. REVIEW OF SYSTEMS: As per HPI. Rest of 12-point review of systems reviewed negative. PHYSICAL EXAMINATION: GENERAL: Comfortable in bed, in no acute distress. VITAL SIGNS: Temperature 98.6, heart rate 80 per minute, respiratory rate 18 per minute, blood pressure 130/90, respiratory rate 15 per minute. HEENT: Pallor positive. NECK: No lymphadenopathy. CHEST: Air entry present and equal bilateral. No added sound. CARDIOVASCULAR: S1, S2 normal. No murmur. No gallop. ABDOMEN: Soft, nontender. No hepatosplenomegaly. EXTREMITIES: No edema. Right malleolus induration. Partially healing ulcer. LABORATORY DATA: White count 12.9, hemoglobin 11, hematocrit 36, platelet 400. Sodium 4.2, creatinine 0.7. MEDICATIONS: Current medications reviewed. ASSESSMENT: Right malleolar nonhealing ulcer, hypertension, hypothyroidism, leukocytosis, anemia, PLAN: MRI of the foot is negative for osteomyelitis. Currently, on IV antibiotic cefepime as per ID. We will follow the ID recommendation. Continue Lovenox 30 mg subcutaneous for DVT prophylaxis, Synthroid 125 mcg daily, lisinopril 10 mg daily. She is getting morphine 2 mg every 6 hours p.r.n. for pain. She is also on IV vancomycin. TCU evaluation under progress. Will be transferred to TCU when she has a bed. Blood count, leukocytosis on admission resolved with IV antibiotics. She has mild anemia, hemoglobin 11. We will continue to monitor. Renal functions are within normal limits. LFTs normal. Haven Coates MD [facility]
--- NOTE | 2017-11-04 14:51 | CP.PCM.PN ---
Subjective - Date & Time of Evaluation Date of Evaluation: 11/04/17 Time of Evaluation: 11:30 - Subjective Subjective: A little less pain in the right foot , no fevers. Objective - Vital Signs/Intake and Output Vital Signs (last 24 hours): Temp Pulse Resp BP Pulse Ox 97.9 F 100 H 20 131/74 99 11/04/17 08:48 11/04/17 09:58 11/04/17 08:48 11/04/17 09:58 11/04/17 08:48 Intake and Output: 11/04/17 11/04/17 06:59 18:59 Output Total 400 Balance -400 - Medications Medications: Current Medications Acetaminophen/Butalbital/Caffeine (Fioricet) 1 tab PO Q6 PRN PRN Reason: Pain, moderate (4-7), Headache Last Admin: 11/04/17 00:32 Dose: 1 tab Amlodipine Besylate (Norvasc) 10 mg PO DAILY [facility] Last Admin: 11/04/17 09:57 Dose: 10 mg Atorvastatin Calcium (Lipitor) 10 mg PO DAILY [facility] Last Admin: 11/04/17 10:01 Dose: 10 mg Bacitracin (Bacitracin) 0 gm TOP BID [facility] Last Admin: 11/04/17 10:03 Dose: 1 unit Clonidine HCl (Catapres) 0.1 mg PO BID [facility] Last Admin: 11/04/17 09:58 Dose: 0.1 mg Collagenase (Santyl) 1 gm TOP DAILY [facility] Last Admin: 11/03/17 13:27 Dose: 1 appful Enoxaparin Sodium (Lovenox) 30 mg SC DAILY [facility] PRN Reason: Protocol Last Admin: 11/04/17 10:01 Dose: 30 mg Famotidine (Pepcid) 40 mg PO 1000 [facility] Last Admin: 11/04/17 10:01 Dose: 40 mg Vancomycin HCl (Vancomycin 1gm) 1 gm in 250 mls @ 167 mls/hr IVPB Q12H [facility] PRN Reason: Protocol Stop: 11/10/17 13:16 Last Admin: 11/04/17 00:23 Dose: 167 mls/hr Cefepime HCl (Maxipime 1gm) 1 gm in 100 mls @ 100 mls/hr IVPB Q8 [facility] PRN Reason: Protocol Stop: 11/10/17 14:01 Last Admin: 11/04/17 05:28 Dose: 100 mls/hr Levothyroxine Sodium (Synthroid) 125 mcg PO 0600 [facility] Last Admin: 11/04/17 05:28 Dose: 125 mcg Lisinopril (Zestril) 10 mg PO DAILY [facility] Last Admin: 11/04/17 09:58 Dose: 10 mg Morphine Sulfate (Morphine) 2 mg IVP Q6H PRN PRN Reason: Pain, moderate (4-7) Last Admin: 11/04/17 10:02 Dose: 2 mg Tramadol HCl (Ultram) 50 mg PO Q8 [facility] Last Admin: 11/04/17 05:30 Dose: 50 mg - Labs Labs: 11/04/17 10:10 11/04/17 10:10 - Constitutional Appears: Chronically Ill - Head Exam Head Exam: NORMAL INSPECTION - Respiratory Exam Respiratory Exam: Decreased Breath Sounds - Cardiovascular Exam Cardiovascular Exam: +S1, +S2 - GI/Abdominal Exam GI & Abdominal Exam: Soft. absent: Tenderness Assessment and Plan - Assessment and Plan (Free Text) Plan: Assessment sepsis due to right ankle cellulitis with right heel deep ulcer growing Pseudomonas R/O PAD HTN bipolar disorder hypothyroidism skin cancer on the face anxiety disorder arthritis history of E. coli UTI S/P cholecystectomy S/P appendectomy Plan continue Cefepime day 4 for 7-10 days - MRI of foot does not show osteomyelitis - follow up STEPHANIE's follow up further plans of Podiatry will continue to monitor clinically discussed with Dr. Lebron
--- NOTE | 2017-11-04 15:06 | CP.PCM.PN ---
<Bib Valentin - Last Filed: 11/04/17 15:06> Subjective - Date & Time of Evaluation Date of Evaluation: 11/04/17 Time of Evaluation: 13:00 - Subjective Subjective: Podiatry Progress Note- Dr. Amaral/Dr. Bey 77 y/o female seen and evaluated at bedside with attending right foot ulceration. Patient is seen resting in bed, in NAD, and AA0x3. Patient reports same pain to the right foot. Complains the dressing was put on too loosely in kerlix. Denies of any calf pain or tenderness. Denies nausea, fever, shortness of breath, chest pain or chills. No other pedal complaints at this time. Objective - Vital Signs/Intake and Output Vital Signs (last 24 hours): Temp Pulse Resp BP Pulse Ox 97.9 F 100 H 20 131/74 99 11/04/17 08:48 11/04/17 09:58 11/04/17 08:48 11/04/17 09:58 11/04/17 08:48 Intake and Output: 11/04/17 11/04/17 06:59 18:59 Output Total 400 Balance -400 - Medications Medications: Current Medications Acetaminophen/Butalbital/Caffeine (Fioricet) 1 tab PO Q6 PRN PRN Reason: Pain, moderate (4-7), Headache Last Admin: 11/04/17 12:24 Dose: 1 tab Amlodipine Besylate (Norvasc) 10 mg PO DAILY [facility] Last Admin: 11/04/17 09:57 Dose: 10 mg Atorvastatin Calcium (Lipitor) 10 mg PO DAILY [facility] Last Admin: 11/04/17 10:01 Dose: 10 mg Bacitracin (Bacitracin) 0 gm TOP BID [facility] Last Admin: 11/04/17 10:03 Dose: 1 unit Clonidine HCl (Catapres) 0.1 mg PO BID [facility] Last Admin: 11/04/17 09:58 Dose: 0.1 mg Collagenase (Santyl) 1 gm TOP DAILY [facility] Last Admin: 11/04/17 10:14 Dose: 1 appful Enoxaparin Sodium (Lovenox) 30 mg SC DAILY [facility] PRN Reason: Protocol Last Admin: 11/04/17 10:01 Dose: 30 mg Famotidine (Pepcid) 40 mg PO 1000 [facility] Last Admin: 11/04/17 10:01 Dose: 40 mg Cefepime HCl (Maxipime 1gm) 1 gm in 100 mls @ 100 mls/hr IVPB Q8 [facility] PRN Reason: Protocol Stop: 11/10/17 14:01 Last Admin: 11/04/17 14:49 Dose: 100 mls/hr Levothyroxine Sodium (Synthroid) 125 mcg PO 0600 [facility] Last Admin: 11/04/17 05:28 Dose: 125 mcg Lisinopril (Zestril) 10 mg PO DAILY [facility] Last Admin: 11/04/17 09:58 Dose: 10 mg Morphine Sulfate (Morphine) 2 mg IVP Q6H PRN PRN Reason: Pain, moderate (4-7) Last Admin: 11/04/17 10:02 Dose: 2 mg Tramadol HCl (Ultram) 50 mg PO Q8 [facility] Last Admin: 11/04/17 14:46 Dose: 50 mg - Labs Labs: 11/04/17 10:10 11/04/17 10:10 - Constitutional Appears: Well, Non-toxic, No Acute Distress - Extremities Exam Extremities Exam: absent: Calf Tenderness Additional comments: VASC: DP and PT 2/4 bilaterally, CFT < 3 seconds x 10 digits, temperature gradient warm to cool from proximal to distal, +1 edema noted to the lower extremity ORTHO: severe pain with palpation surrounding ulceration site, MM is 4/5 in all four compartments: dorsiflexion, plantarflexion, inversion and eversion NEURO: protective and gross sensation intact DERM: ulceration noted to right medial ankle inferior to the medial malleolus measuring approximately 2 x 1 x .2cm, full thickness wound, with wound base being 100% fibrous, mild serous drainage noted, mild periwound erythema, no streaking, no tunneling, no undermining, no probe to bone - Neurological Exam Neurological Exam: Alert, Awake, Oriented x3 - Psychiatric Exam Psychiatric exam: Normal Affect, Normal Mood Assessment and Plan - Assessment and Plan (Free Text) Assessment: 77 y.o female with full thickness ulceration right foot likely secondary to venous insufficiency with cellulitis- resolving Plan: Patient examined and evaluated with attending Dr. Bey Labs, chart, vitals reviewed- afebrile, absent leukocytosis WBC=7.4 Right foot X-rays reviewed- soft tissue swelling without acute articular or osseous abnormality Duplex U/S (-) DVT ABIs/PVRS Right= 1.20, Left=1.42. Impression relatively normal STEPHANIE and PVR examiantion at rest Wound culture- Pseudomonas Aeruginosa C/w abx per ID Cleansed ulceration with saline solution, applied santtyl, dsd, and kerlix Applied NATALIE compression WBAT in surgical shoe to the right MRI (-) OM Will continue to follow patient while in house <Delta Bey - Last Filed: 11/04/17 17:49> Objective - Vital Signs/Intake and Output Vital Signs (last 24 hours): Temp Pulse Resp BP Pulse Ox 97.9 F 96 H 19 107/72 94 L 11/04/17 17:25 11/04/17 17:25 11/04/17 17:25 11/04/17 17:25 11/04/17 17:25 Intake and Output: 11/04/17 11/04/17 06:59 18:59 Output Total 400 Balance -400 - Medications Medications: Current Medications Acetaminophen/Butalbital/Caffeine (Fioricet) 1 tab PO Q6 PRN PRN Reason: Pain, moderate (4-7), Headache Last Admin: 11/04/17 12:24 Dose: 1 tab Amlodipine Besylate (Norvasc) 10 mg PO DAILY [facility] Last Admin: 11/04/17 09:57 Dose: 10 mg Atorvastatin Calcium (Lipitor) 10 mg PO DAILY [facility] Last Admin: 11/04/17 10:01 Dose: 10 mg Bacitracin (Bacitracin) 0 gm TOP BID [facility] Last Admin: 11/04/17 10:03 Dose: 1 unit Clonidine HCl (Catapres) 0.1 mg PO BID [facility] Last Admin: 11/04/17 09:58 Dose: 0.1 mg Collagenase (Santyl) 0 gm TOP DAILY [facility] Enoxaparin Sodium (Lovenox) 30 mg SC DAILY [facility] PRN Reason: Protocol Last Admin: 11/04/17 10:01 Dose: 30 mg Famotidine (Pepcid) 40 mg PO 1000 [facility] Last Admin: 11/04/17 10:01 Dose: 40 mg Cefepime HCl (Maxipime 1gm) 1 gm in 100 mls @ 100 mls/hr IVPB Q8 [facility] PRN Reason: Protocol Stop: 11/10/17 14:01 Last Admin: 11/04/17 14:49 Dose: 100 mls/hr Levothyroxine Sodium (Synthroid) 125 mcg PO 0600 [facility] Last Admin: 11/04/17 05:28 Dose: 125 mcg Lisinopril (Zestril) 10 mg PO DAILY [facility] Last Admin: 11/04/17 09:58 Dose: 10 mg Morphine Sulfate (Morphine) 2 mg IVP Q6H PRN PRN Reason: Pain, moderate (4-7) Last Admin: 11/04/17 15:48 Dose: 2 mg Tramadol HCl (Ultram) 50 mg PO Q8 [facility] Last Admin: 11/04/17 14:46 Dose: 50 mg - Labs Labs: 11/04/17 10:10 11/04/17 10:10 Attending/Attestation - Attestation I have personally seen and examined this patient.: Yes I have fully participated in the care of the patient.: Yes I have reviewed all pertinent clinical information, including history, physical exam and plan: Yes
[2017-11-04] MEDS ORDERED: Collagenase 250 Units/gm Ointment(30 gm) TOP SCH (16:46)
[2017-11-05] MEDS: DiphenhydrAMINE 50 mg/ml Inj IVP PRN ×4 (03:20→22:04)
[2017-11-05] MEDS: Morphine 2 mg/ml ISec IVP PRN ×4 (04:09→22:06)
[2017-11-05] MEDS: Levothyroxine 125 MCG TAB PO SCH (05:47)
[2017-11-05] MEDS: Cefepime 1gm in NS 100ml 1 GM/100 ML BAG IVPB SCH ×3 (05:48→22:05)
[2017-11-05] MEDS: Apap-Butalbital-Caffeine 325-50-40mg Tab PO PRN ×3 (06:16→22:05)
[2017-11-05] MEDS: Silver Sulfadiazine 1% Cream (25 gm) TP SCH (10:32)
[2017-11-05] MEDS: Enoxaparin 30 mg Syringe SC SCH (10:36)
--- NOTE | 2017-11-05 14:38 | PN ---
DATE: 11/05/2017 SUBJECTIVE: A 77-year-old female seen at bedside for continued evaluation and management of a slowly resolving right medial heel ulceration. The patient states she does not like the NATALIE wraps and is refusing to wear them. She denies any calf pain or tenderness. She has been afebrile. PHYSICAL EXAMINATION: VITAL SIGNS: Revealed temperature of 97.9, pulse rate of 96, blood pressure of 107/72, respiratory rate of 19. LABORATORY DATA: Findings reveal white count of 7.4 down from 12.9, hemoglobin of 12, hematocrit of 36.9, platelet count of 303. Most recent microbiology report reveals Pseudomonas growth in the right heel ulceration. X-rays ankle and MRI testing reveals no radiographic evidence of cortical destruction to suggest osteomyelitis at the right heel. Arterial Dopplers reveal relatively normal STEPHANIE and PVRs upon rest. OBJECTIVE: Palpable pedal pulses noted bilaterally. Capillary filling time is within normal limits. Temperature gradient is within normal limits. There is +2 nonpitting lower extremity edema noted bilaterally. Protective sensation is intact using 5.07 g monofilament wire testing bilaterally. There is a full-thickness ulceration located at the medial aspect of the right heel that measures approximately 1 cm x 1 cm x 0.2 cm. The wound does not probe to tendon or bone. There is no purulence. There is noted to be minimal fibrotic tissue at this point. There is noted to be minimal serous drainage. There is no probing to tendon or bone. No underlying abscess formation noted. ASSESSMENT: A 77-year-old female with the right heel ulceration with resolving cellulitis. PLAN: The patient was examined. Wound was cleansed with normal sterile saline and application of Santyl ointment and a dry sterile dressing was applied. The patient reports a history of SKIN ALLERGY TO BACTROBAN which had been used previously in the past. Bactroban will be discontinued and we would use a small amount of Silvadene as to not macerated the area since the fibrotic tissue is now almost resolved. The patient is set for discharge to TCU. The patient is scheduled to be discharged to TCU where we will continue to cleanse the wound and change the dressing daily. She was encouraged to undergo physical therapy as tolerated with surgical shoe in place. Delta Bey DPM [facility] # [id number] MTDD
--- NOTE | 2017-11-05 23:02 | CP.PCM.PN ---
Subjective - Date & Time of Evaluation Date of Evaluation: 11/05/17 Time of Evaluation: 10:00 - Subjective Subjective: DATE: 11/05/2017 HISTORY OF PRESENT ILLNESS: Ms. Cash is a 77-year-old female, admitted to the hospital with right malleolar foot ulcer. She was evaluated by health care coordinator. Currently had an MRI of the foot to rule out osteomyelitis. She is currently on IV antibiotics. She has history of hypothyroidism, currently controlled with current medications. History of hypertension, blood pressure under control. Stable condition. Recent history of skin cancer on the left cheek. She also has history of bipolar disorder. No acute issues. No issues overnight . PICC line placed yesterday. PAST MEDICAL HISTORY: Osteoarthritis, bipolar, hypertension, cancer on the left cheek, history of peptic ulcer disease, hypothyroidism, cholecystectomy, appendectomy. PAST SURGICAL HISTORY: Cholecystectomy, appendectomy. ALLERGIES: ALLERGY TO OXYCODONE, SULFA, ASPIRIN, NAPROXEN. MEDICATION: reviewed. REVIEW OF SYSTEMS: As per HPI. Rest of 12-point review of systems reviewed negative. PHYSICAL EXAMINATION: GENERAL: Comfortable in bed, in no acute distress. VITAL SIGNS: reviewed. HEENT: Pallor positive. NECK: No lymphadenopathy. CHEST: Air entry present and equal bilateral. No added sound. CARDIOVASCULAR: S1, S2 normal. No murmur. No gallop. ABDOMEN: Soft, nontender. No hepatosplenomegaly. EXTREMITIES: No edema. Right malleolus induration. Partially healing ulcer. LABORATORY DATA: reviewed. MEDICATIONS: Current medications reviewed. ASSESSMENT: Right malleolar nonhealing ulcer, hypertension, hypothyroidism, leukocytosis, anemia, PLAN: MRI of the foot is negative for osteomyelitis. Currently, on IV antibiotics as per ID. We will follow the ID recommendation. Continue Lovenox 30 mg subcutaneous for DVT prophylaxis, Synthroid 125 mcg daily, lisinopril 10 mg daily. She is getting morphine 2 mg every 6 hours p.r.n. for pain. She is also on IV vancomycin. TCU evaluation under progress. Will be transferred to TCU when she has a bed. Blood count, leukocytosis on admission resolved with IV antibiotics. She has mild anemia, hemoglobin 11. We will continue to monitor. Renal functions are within normal limits. LFTs normal. Ambulating in room. Haven Coates MD Objective - Vital Signs/Intake and Output Vital Signs (last 24 hours): Temp Pulse Resp BP Pulse Ox 97.5 F L 91 H 19 97/57 L 97 11/05/17 17:44 11/05/17 17:44 11/05/17 17:44 11/05/17 17:44 11/05/17 17:44 Intake and Output: 11/05/17 11/06/17 18:59 06:59 Intake Total 660 Balance 660 - Medications Medications: Current Medications Acetaminophen/Butalbital/Caffeine (Fioricet) 1 tab PO Q6 PRN PRN Reason: Pain, moderate (4-7), Headache Last Admin: 11/05/17 22:05 Dose: 1 tab Amlodipine Besylate (Norvasc) 10 mg PO DAILY [facility] Last Admin: 11/05/17 10:30 Dose: 10 mg Atorvastatin Calcium (Lipitor) 10 mg PO DAILY [facility] Last Admin: 11/05/17 10:30 Dose: 10 mg Clonidine HCl (Catapres) 0.1 mg PO BID [facility] Last Admin: 11/05/17 10:30 Dose: 0.1 mg Diphenhydramine HCl (Benadryl) 25 mg IVP Q6H PRN PRN Reason: Itching / Pruritus Last Admin: 11/05/17 22:04 Dose: 25 mg Enoxaparin Sodium (Lovenox) 30 mg SC DAILY [facility] PRN Reason: Protocol Last Admin: 11/05/17 10:36 Dose: 30 mg Famotidine (Pepcid) 40 mg PO 1000 [facility] Last Admin: 11/05/17 10:30 Dose: 40 mg Cefepime HCl (Maxipime 1gm) 1 gm in 100 mls @ 100 mls/hr IVPB Q8 [facility] PRN Reason: Protocol Stop: 11/10/17 14:01 Last Admin: 11/05/17 22:05 Dose: 100 mls/hr Levothyroxine Sodium (Synthroid) 125 mcg PO 0600 [facility] Last Admin: 11/05/17 05:47 Dose: 125 mcg Lisinopril (Zestril) 10 mg PO DAILY [facility] Last Admin: 11/05/17 10:30 Dose: 10 mg Morphine Sulfate (Morphine) 2 mg IVP Q6H PRN PRN Reason: Pain, moderate (4-7) Last Admin: 11/05/17 22:06 Dose: 2 mg Silver Sulfadiazine (Silvadene 1% 25 Gm) 0 gm TP DAILY [facility] Last Admin: 11/05/17 10:32 Dose: 1 gm Tramadol HCl (Ultram) 50 mg PO Q8 [facility] Last Admin: 11/05/17 22:06 Dose: Not Given - Labs Labs: 11/04/17 10:10 11/04/17 10:10
[2017-11-06] MEDS: Apap-Butalbital-Caffeine 325-50-40mg Tab PO PRN ×2 (04:45→11:15)
[2017-11-06] MEDS: Morphine 2 mg/ml ISec IVP PRN (04:47)
[2017-11-06] MEDS: DiphenhydrAMINE 50 mg/ml Inj IVP PRN ×2 (04:47→11:15)
[2017-11-06] MEDS: Levothyroxine 125 MCG TAB PO SCH (06:00)
[2017-11-06] MEDS: Cefepime 1gm in NS 100ml 1 GM/100 ML BAG IVPB SCH (06:29)
[2017-11-06 08:29] VITALS: BP 118/77; PULSE 72; RESP 20; TEMP 97; O2SAT 100
[2017-11-06] MEDS: Enoxaparin 30 mg Syringe SC SCH (10:28)
[2017-11-06] MEDS: Silver Sulfadiazine 1% Cream (25 gm) TP SCH (10:30)
[2017-11-06] MEDS ORDERED: Morphine 2 mg/2 mL syringe IVP PRN (11:00)
--- NOTE | 2017-11-06 14:50 | CP.PCM.PN ---
<GeeLisa - Last Filed: 11/06/17 14:59> Subjective - Date & Time of Evaluation Date of Evaluation: 11/06/17 Time of Evaluation: 14:46 - Subjective Subjective: Podiatry Progress Note- Dr. Amaral 77 y/o female seen and evaluated at bedside right foot ulceration. Patient is seen resting in bed, in NAD, and AA0x3. Patient reports same pain to the right foot. States she is allergic to the elastic on the NATALIE wrap. Denies of any calf pain or tenderness. Denies nausea, fever, shortness of breath, chest pain or chills. No other pedal complaints at this time. Objective - Vital Signs/Intake and Output Vital Signs (last 24 hours): Temp Pulse Resp BP Pulse Ox 97.0 F L 72 20 118/77 100 11/06/17 05:00 11/06/17 10:30 11/06/17 05:00 11/06/17 10:30 11/06/17 05:00 Intake and Output: 11/06/17 11/06/17 06:59 18:59 Intake Total 660 Balance 660 - Labs Labs: 11/04/17 10:10 11/04/17 10:10 - Constitutional Appears: Well, Non-toxic - Head Exam Head Exam: ATRAUMATIC, NORMOCEPHALIC - Extremities Exam Additional comments: Right lower extremity focused exam: VASC: DP and PT 2/4, CFT < 3 seconds x 5 digits, temperature gradient warm to cool from proximal to distal, +1 edema noted to the lower extremity ORTHO: severe pain with palpation surrounding ulceration site, MM is 4/5 in all four compartments: dorsiflexion, plantarflexion, inversion and eversion NEURO: protective and gross sensation intact DERM: Superficial ulceration noted to right medial ankle inferior to the medial malleolus, erythema noted in the medial aspect of the ankle with edema, mild serous drainage noted, no streaking, no tunneling, no undermining, no probe to bone - Neurological Exam Neurological Exam: Alert, Awake, Oriented x3 - Psychiatric Exam Psychiatric exam: Normal Affect, Normal Mood - Skin Skin Exam: Normal Color Assessment and Plan - Assessment and Plan (Free Text) Assessment: 77 y.o female with ulceration right foot likely secondary to venous insufficiency with cellulitis- resolving Plan: Patient examined and evaluated Plan discussed with Dr. Amaral Labs, chart, vitals reviewed- afebrile, absent leukocytosis Right foot X-rays reviewed- soft tissue swelling without acute articular or osseous abnormality Duplex U/S (-) DVT MRI (-) OM ABIs/PVRS Right= 1.20, Left=1.42. Impression relatively normal STEPHANIE and PVR examiantion at rest Wound culture- Pseudomonas Aeruginosa Continue antibiotic per ID Applied silvadene, and DSD WBAT in surgical shoe to the right Patient transferred to TCU; Will continue to follow patient while in house <Lydia Amaral - Last Filed: 11/06/17 16:52> Objective - Vital Signs/Intake and Output Vital Signs (last 24 hours): Temp Pulse Resp BP Pulse Ox 97.0 F L 72 20 118/77 100 11/06/17 05:00 11/06/17 10:30 11/06/17 05:00 11/06/17 10:30 11/06/17 05:00 Intake and Output: 11/06/17 11/06/17 06:59 18:59 Intake Total 660 Balance 660 - Labs Labs: 11/04/17 10:10 11/04/17 10:10 Attending/Attestation - Attestation I have personally seen and examined this patient.: Yes I have fully participated in the care of the patient.: Yes I have reviewed all pertinent clinical information, including history, physical exam and plan: Yes
--- NOTE | 2017-11-06 15:46 | PN ---
DATE: 11/06/2017 SUBJECTIVE: The patient is in room 371, bed 2. The patient was seen early this morning, in no acute distress, nontoxic. No fevers. PHYSICAL EXAMINATION: VITAL SIGNS: Temperature 98, blood pressure is 118/70, respiratory rate of 16. HEENT: Examination of HEENT is unremarkable. NECK: Supple. LUNGS: Have decreased breath sounds. HEART: Normal S1, S2. ABDOMEN: Soft, nontender. EXTREMITIES: Examination of leg is much improved. LABORATORY DATA: Laboratory sensation reveals the blood cultures are no growth. There is Pseudomonas from the right foot culture and it is sensitive to cefepime. ASSESSMENT AND PLAN: A 77-year-old female who was seen early this morning in room 371, bed 2, doing well with sepsis, rule out Pseudomonas, right ankle cellulitis. On cefepime day #6. MRI is negative. Would complete 7-10 days in a patient with hypertension, bipolar disorder, hypothyroidism, skin cancer on the face, anxiety, arthritis. We will follow with you. Timothy Conroy MD
--- NOTE | 2017-11-06 19:19 | DS ---
DISCHARGE DIAGNOSES: 1. Right malleolus foot ulcer, negative for osteomyelitis. 2. Anemia, leukocytosis. 3. Peripheral vascular disease. 4. Hypothyroidism. 5. Hypertension. HOSPITAL COURSE: She was admitted with right malleolus ulcer. She was evaluated for osteomyelitis. MRI was negative for osteomyelitis. She was seen by Podiatry, ; ID, Dr. Conroy. She had a PICC line placed for continuation of IV antibiotics. Wound culture from the right malleolus showed Pseudomonas aeruginosa. She is being transferred to Transitional Care Unit in stable condition. PHYSICAL EXAMINATION ON DISCHARGE: GENERAL: Comfortable in bed, in no acute distress. VITAL SIGNS: Temperature 98.7, heart rate is 80 per minute, blood pressure 110/60, respiratory rate 18 per minute, oxygen saturation 98% on room air. HEENT: No lymphadenopathy. No pallor. CHEST: Air entry present and equal bilateral. No added sounds. CARDIOVASCULAR: S1 and S2 normal. No murmur. No gallop. ABDOMEN: Soft and nontender. No hepatosplenomegaly. EXTREMITIES: Right extremity in dressing. SPINE: Nontender. SKIN: No petechiae. No rash. CONDITION ON DISCHARGE: Stable. DISPOSITION: Discharge to Transitional Care Unit. MEDICATIONS: Continue all medications. Continue all consults as on the regular floor. Physical therapy as tolerated. DIET: Regular diet. Discussed with staff nurse at Transitional Care Unit. Discussed with the staff nurse on the regular floor. Discussed with the patient. Chart reviewed. Haven Coates MD
--- NOTE | 2017-11-07 09:12 | PN ---
DATE: 11/05/2017 SUBJECTIVE: The patient is in bed, in no acute distress, nontoxic. PHYSICAL EXAMINATION: VITAL SIGNS: Temperature is 98, blood pressure is 120/70, respiratory rate of 18. HEENT: Examination of HEENT is unremarkable. NECK: Supple. LUNGS: Have decreased breath sounds. HEART: Normal S1 and S2. ABDOMEN: Soft, nontender. LABORATORY DATA: Laboratory examination reveals a white count of 7.4, hemoglobin of 12, platelets of 303. Chemistries are noted. BUN of 19, creatinine of 0.7, C-reactive protein is greater than 15. The patient's sed rate is only 20. Microbiology reveals the patient has Pseudomonas aeruginosa from the right foot culture. Blood cultures are negative, no growth. Pseudomonas aeruginosa sensitive to cefepime, and meropenem. Sensitive to amikacin, tobramycin, sensitive to Zosyn. Review of orders reveals the patient to be on cefepime. The patient's MRI does not suggest any evidence of osteomyelitis. ASSESSMENT AND PLAN: A 77-year-old female who was seen earlier today in 371, bed 2 with sepsis due to right ankle cellulitis with Pseudomonas with a right heel deep ulcer growing Pseudomonas and with hypertension with bipolar, hypothyroidism, skin cancer in her face, anxiety disorder, arthritis. On cefepime. MRI has no osteomyelitis. Today is day #5. We will complete 7-10 days. Vascular workup for peripheral arterial disease and podiatric care as Dr. Bey's note from yesterday is reviewed. We will follow with you. Timothy Conroy MD
== END 2017-11-06 13:57 | DRG 593 ==
LOC: ED 22:54 → ERH 11-01 02:35 → 3RSO 11-01 04:37 → OBSVTOIN 11-03 10:44
PROVIDERS: ADMIT Internal Medicine; ATTEND Internal Medicine
DX: L97.319 Non-pressure chronic ulcer of right ankle with unspecified severity (principal); L03.115 Cellulitis of right lower limb; I87.2 Venous insufficiency (chronic) (peripheral); B96.5 Pseudomonas (aeruginosa) (mallei) (pseudomallei) as the cause of diseases classified elsewhere; I73.9 Peripheral vascular disease, unspecified; I10 Essential (primary) hypertension; E03.9 Hypothyroidism, unspecified; F31.9 Bipolar disorder, unspecified; K29.70 Gastritis, unspecified, without bleeding; L29.9 Pruritus, unspecified; F41.9 Anxiety disorder, unspecified; D64.9 Anemia, unspecified; E78.5 Hyperlipidemia, unspecified; M15.9 Polyosteoarthritis, unspecified; Z87.01 Personal history of pneumonia (recurrent); Z86.14 Personal history of Methicillin resistant Staphylococcus aureus infection; Z85.828 Personal history of other malignant neoplasm of skin; Z88.2 Allergy status to sulfonamides; Z87.11 Personal history of peptic ulcer disease; Z87.440 Personal history of urinary (tract) infections

== ENCOUNTER 2017-11-06 13:54 | Inpatient (IN) | payer OTHER, MEDICAID ==
[2017-11-06] MEDS: Morphine 2 mg/ml ISec IVP PRN (17:20)
[2017-11-06] MEDS: DiphenhydrAMINE 50 mg/ml Inj IVP PRN (17:21)
[2017-11-06] MEDS: Apap-Butalbital-Caffeine 325-50-40mg Tab PO PRN (18:20)
[2017-11-06] MEDS ORDERED: Pneumococcal 23-Valent Vaccine IM ONE (18:27)
[2017-11-06] MEDS: Cefepime 1gm in NS 100ml 1 GM/100 ML BAG IVPB SCH (21:05)
[2017-11-07] MEDS: DiphenhydrAMINE 50 mg/ml Inj IVP PRN ×4 (01:34→20:21)
[2017-11-07] MEDS: Morphine 2 mg/ml ISec IVP PRN ×4 (01:34→20:15)
[2017-11-07] MEDS: Apap-Butalbital-Caffeine 325-50-40mg Tab PO PRN ×3 (01:37→14:18)
[2017-11-07] MEDS: Cefepime 1gm in NS 100ml 1 GM/100 ML BAG IVPB SCH ×3 (05:35→21:02)
[2017-11-07] MEDS: Levothyroxine 125 MCG TAB PO SCH (05:37)
[2017-11-07] MEDS: Silver Sulfadiazine 1% Cream (25 gm) TP SCH (10:56)
[2017-11-07] MEDS: Enoxaparin 30 mg Syringe SC SCH (10:56)
--- NOTE | 2017-11-07 14:15 | CP.PCM.CON ---
History of Present Illness - History of Present Illness History of Present Illness: 77 year old female with PMH of HTN, bipolar disorder, hypothyroidism, skin cancer on the face, anxiety disorder, arthritis, history of E. coli UTI, S/P cholecystectomy, S/P appendectomy initially was admitted in [facility] because of right ankle infection with heel trauma and infection. She has been improving with local wound care and antibiotics and is now transferred to [facility] for continued medical therapy and physical rehab. Infectious diseases consult is requested to continue her antibiotic therapy. She has no fever or chills, no nausea, no vomiting, less pain in the right lower extremity, no abdominal pain, no diarrrhea. Review of Systems - Review of Systems All systems: reviewed and no additional remarkable complaints except (as per HPI ) Past Patient History - Infectious Disease Hx of Infectious Diseases: None - Past Social History Smoking Status: Never Smoked - CARDIAC Hx Pacemaker: No - PULMONARY Hx Respiratory Disorders: Yes Hx Pneumonia: Yes - NEUROLOGICAL Hx Neurological Disorder: Yes Hx Dizziness: Yes Hx Migraine: Yes - HEENT Hx HEENT Problems: No Hx Cataracts: No (denied) - RENAL Hx Chronic Kidney Disease: Yes Hx Pyelonephritis: Yes - ENDOCRINE/METABOLIC Hx Hypothyroidism: Yes - HEMATOLOGICAL/ONCOLOGICAL Hx Cancer: Yes - INTEGUMENTARY Hx Dermatological Problems: Yes Other/Comment: 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, skin cancer removed from L nose - MUSCULOSKELETAL/RHEUMATOLOGICAL Hx Falls: No - GASTROINTESTINAL Hx Gastrointestinal Disorders: No (POOR APPETITE) - GENITOURINARY/GYNECOLOGICAL Hx Genitourinary Disorders: No Hx Reproductive Disorders: No - PSYCHIATRIC Hx Psychophysiologic Disorder: No Hx Anxiety: No (denied) Hx Bipolar Disorder: No (denied) Hx Substance Use: No - SURGICAL HISTORY Hx Mastectomy: No - ANESTHESIA Hx Anesthesia: Yes Hx Anesthesia Reactions: No Meds Allergies/Adverse Reactions: Allergies Allergy/AdvReac Type Severity Reaction Status Date / Time oxycodone HCl [From Percocet] Allergy urticaria Verified 11/06/17 18:03 to "IV percocet" Sulfa (Sulfonamide Allergy SHORTNESS Verified 11/06/17 18:03 Antibiotics) OF BREATH aspirin AdvReac pt has Verified 11/06/17 18:03 ulcer naproxen AdvReac pt has Verified 11/06/17 18:03 ulcer - Medications Medications: Current Medications Acetaminophen/Butalbital/Caffeine (Fioricet) 1 tab PO Q6H PRN; Protocol PRN Reason: Pain, moderate (4-7) Last Admin: 11/07/17 01:37 Dose: 1 tab Amlodipine Besylate (Norvasc) 10 mg PO DAILY [facility] PRN Reason: Protocol Atorvastatin Calcium (Lipitor) 10 mg PO DIN [facility] PRN Reason: Protocol Clonidine HCl (Catapres) 0.1 mg PO BID [facility] PRN Reason: Protocol Last Admin: 11/06/17 17:22 Dose: 0.1 mg Diphenhydramine HCl (Benadryl) 25 mg IVP Q6H PRN; Protocol PRN Reason: Allergy symptoms Last Admin: 11/07/17 01:34 Dose: 25 mg Enoxaparin Sodium (Lovenox) 30 mg SC DAILY [facility] PRN Reason: Protocol Famotidine (Pepcid) 40 mg PO HS [facility] PRN Reason: Protocol Last Admin: 11/06/17 21:06 Dose: 40 mg Cefepime HCl (Maxipime 1gm) 1 gm in 100 mls @ 100 mls/hr IVPB 0600,1400,2200 [facility] PRN Reason: Protocol Last Admin: 11/07/17 05:35 Dose: 100 mls/hr Levothyroxine Sodium (Synthroid) 125 mcg PO 0600 [facility] PRN Reason: Protocol Last Admin: 11/07/17 05:37 Dose: 125 mcg Lisinopril (Zestril) 10 mg PO DAILY [facility] PRN Reason: Protocol Morphine Sulfate (Morphine) 2 mg IVP Q6H PRN; Protocol PRN Reason: Pain, severe (8-10) Last Admin: 11/07/17 01:34 Dose: 2 mg Silver Sulfadiazine (Silvadene 1% 25 Gm) 0 gm TP DAILY [facility] PRN Reason: Protocol Tramadol HCl (Ultram) 50 mg PO Q8 [facility] PRN Reason: Protocol Last Admin: 11/07/17 05:38 Dose: Not Given Physical Exam - Constitutional Appears: Chronically Ill - Head Exam Head Exam: NORMAL INSPECTION - ENT Exam ENT Exam: Mucous Membranes Moist - Neck Exam Neck exam: Negative for: Meningismus - Respiratory Exam Respiratory Exam: Decreased Breath Sounds - Cardiovascular Exam Cardiovascular Exam: +S1, +S2 - GI/Abdominal Exam GI & Abdominal Exam: Soft. absent: Tenderness - Extremities Exam Additional comments: right lower extremity with dressings in place Results - Vital Signs Recent Vital Signs: Last Vital Signs Temp 97.8 F 11/07/17 06:00 Pulse 78 11/07/17 06:00 Resp 18 11/07/17 06:00 BP 114/68 11/07/17 06:00 Pulse Ox 96 11/07/17 06:00 Assessment & Plan - Assessment and Plan (Free Text) Plan: Assessment sepsis due to right ankle cellulitis with right heel deep ulcer growing Pseudomonas HTN bipolar disorder hypothyroidism skin cancer on the face anxiety disorder arthritis history of E. coli UTI S/P cholecystectomy S/P appendectomy Plan continue Cefepime day 7 for 7-10 days - MRI of foot does not show osteomyelitis follow up further plans of Podiatry will continue to monitor clinically discussed with Dr. Lebron previously
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
[2017-11-08] MEDS ORDERED: MethylPREDNISolone 40 mg Vial IVP STA (00:43)
[2017-11-08] MEDS: Cefepime 1gm in NS 100ml 1 GM/100 ML BAG IVPB SCH ×3 (05:11→22:00)
[2017-11-08] MEDS: Levothyroxine 125 MCG TAB PO SCH (05:57)
[2017-11-08] MEDS: Apap-Butalbital-Caffeine 325-50-40mg Tab PO PRN ×3 (05:57→19:14)
[2017-11-08] MEDS: DiphenhydrAMINE 50 mg/ml Inj IVP PRN ×4 (05:57→19:57)
[2017-11-08] MEDS: Morphine 2 mg/ml ISec IVP PRN ×5 (06:00→23:39)
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
[2017-11-08] MEDS: Enoxaparin 30 mg Syringe SC SCH ×2 (08:33→09:37)
[2017-11-08] MEDS: Silver Sulfadiazine 1% Cream (25 gm) TP SCH (10:18)
--- NOTE | 2017-11-08 13:03 | PN ---
DATE: 11/08/2017 SUBJECTIVE: The patient is 77 years old, seen and examined. Had episode of flushing and feeling itchy last night. Questionable allergy to Maxipime. Otherwise, doing well. PHYSICAL EXAMINATION: VITAL SIGNS: She is afebrile, pulse 80, respirations 18, blood pressure 107/60. LUNGS: Bilateral good airflow. No rhonchi or crackle. HEART: S1 and S2 audible. ABDOMEN: Soft. Nontender. No rebound. No guarding. NEUROLOGICAL: The patient is awake, alert, oriented, communicative. SKIN: Her right medial malleolar erythema has significantly improved and ulcer has almost healed. She is still complaining of pain to the area. ASSESSMENT: 1. Questionable bipolar disorder. 2. Hypertension. 3. Deconditioning. PLAN: We will continue the patient on current medication. Currently, she is on Maxipime. She does not think this was allergic reaction. She usually gets itchy when she was not given this medication, so we will continue that and I will request Dr. Hagen for evaluation. Salomón Lebron MD
--- NOTE | 2017-11-08 17:32 | PN ---
DATE: 11/08/2017 SUBJECTIVE: A 76-year-old female seen at bedside with chief complaint of a painful right ingrown great toenail as well as for stasis dermatitis and resolving cellulitis on the right lower extremity secondary to venous insufficiency. The patient does not any compression as she states that it is painful to her and is adamantly requesting morphine pain medication as it is approximately 2 minutes over the time that it is due. The patient's medical history is significant for bipolar disorder, hypothyroidism, essential hypertension, anxiety disorder, osteoarthritis, skin cancer on her face. The patient's vital signs revealed temperature of 98.4, pulse rate of 100, blood pressure of 107/70, respiratory rate of 20. Most recent laboratory findings reveal white count of 7.4, hemoglobin of 12, hematocrit of 36.9, platelet count of 303. ESR of 20. Most recent microbiology report of the right foot reveals Pseudomonas aeruginosa growth. OBJECTIVE: Palpable pedal pulses noted bilaterally. Capillary filling time is within normal limits x10. There is noted to be +1 nonpitting lower extremity edema noted bilaterally. Protective sensation is intact using 5.07 g monofilament wire testing bilaterally. There is noted to be a superficial unstageable ulceration at the right medial ankle that shows no signs of drainage that remains relatively superficial. There is no probing to tendon or bone. There is no purulence. There is no underlying abscess formation noted. The erythema along the periphery of the resolving wound is resolving. There is noted to be severe pain upon palpation of the tibial border of the right great toenail. The area is void of edema and erythema and there is no serous drainage noted. There is no purulence of the area. The pain is confined to the distal border of the tibial nail. ASSESSMENT: Resolving cellulitis with resolving unstageable venous ulceration to the right ankle with resolving localized cellulitis, painful ingrowing right tibial nail border. PLAN: The patient was examined and evaluated. Her wound was cleansed with normal sterile saline and application of Silvadene and a dry sterile dressing was applied. Using sterile nail nippers, angulated excisional debridement was performed on the offending nail border of the right great toe. Area was flushed with normal sterile saline and application of Silvadene and a dry sterile dressing was applied. The patient can continue to ambulate with surgical shoe as tolerated. The patient will be seen and followed daily. Delta Bey DPM [facility] # [id number]
[2017-11-09] MEDS: DiphenhydrAMINE 50 mg/ml Inj IVP PRN ×6 (00:12→20:05)
[2017-11-09] MEDS: Apap-Butalbital-Caffeine 325-50-40mg Tab PO PRN ×4 (02:00→20:11)
[2017-11-09] MEDS: Morphine 2 mg/ml ISec IVP PRN ×5 (04:00→20:05)
[2017-11-09] MEDS: Cefepime 1gm in NS 100ml 1 GM/100 ML BAG IVPB SCH ×3 (05:28→21:16)
[2017-11-09] MEDS: Enoxaparin 30 mg Syringe SC SCH (05:28)
[2017-11-09] MEDS: Levothyroxine 125 MCG TAB PO SCH (05:29)
[2017-11-09] MEDS: Silver Sulfadiazine 1% Cream (25 gm) TP SCH (10:16)
[2017-11-09 13:10] VITALS: RESP 18
--- NOTE | 2017-11-09 14:00 | PN ---
DATE: 11/09/2017 SUBJECTIVE: The patient is 77 years old, seen and examined, anxious, talkative, agitated at times. Seems to be dependent on pain medication, but pretends she is only taking since she is in lot of pain, although her pain seems to be out of proportion to her sickness. She complained of pain in her both big toes since Dr. Bey had ingrown toenail resected from her left big toe. She also complained of pain on the right medial malleolar area. PHYSICAL EXAMINATION: VITAL SIGNS: The patient is afebrile, pulse 75, respirations 20, blood pressure 112/67. LUNGS: Bilateral fair airflow. No rhonchi or crackle. HEART: S1 and S2 audible. ABDOMEN: Soft. Nontender. No rebound. No guarding. NEUROLOGICAL: She is awake, alert, oriented, communicative. EXTREMITIES: Her left big toe is in dressing. Right medial malleolar slight erythema. No open wound. ASSESSMENT: 1. Right medial malleolus stasis ulcer. 2. Hypertension. 3. Anxiety disorder. 4. Hypothyroidism. PLAN: We will continue the patient on current medications. She is refusing physical therapy. She gets upset when she is asked to get out of bed and walk. We will continue her on current medications and local wound care. Salomón Lebron MD
--- NOTE | 2017-11-09 17:21 | CP.PCM.PN ---
<Bib Valentin - Last Filed: 11/09/17 17:18> Subjective - Date & Time of Evaluation Date of Evaluation: 11/09/17 Time of Evaluation: 17:18 - Subjective Subjective: Podiatry Progress Note- Dr. Amaral 76 year old female with PMH of HTN, bipolar disorder, hypothyroidism, skin cancer on the face, anxiety disorder, arthritis, history of E. coli UTI, S/P cholecystectomy, S/P appendectomy seen for right foot ulceration likely secondary to venous insufficiency with cellulitis, resolving and painful halluces bilaterally. Reports santyl marinelli. Reports tolerating silvadene well without issues. Denies acute overnight events. Denies nausea, fever, shortness of breath, chest pains or chills. Objective - Vital Signs/Intake and Output Vital Signs (last 24 hours): Temp Pulse Resp BP Pulse Ox 97.8 F 75 18 112/67 95 11/09/17 10:00 11/09/17 10:15 11/09/17 10:00 11/09/17 10:15 11/09/17 10:00 - Medications Medications: Current Medications Acetaminophen/Butalbital/Caffeine (Fioricet) 1 tab PO Q6H PRN; Protocol PRN Reason: Pain, moderate (4-7) Last Admin: 11/09/17 14:09 Dose: 1 tab Amlodipine Besylate (Norvasc) 10 mg PO DAILY MAGO PRN Reason: Protocol Last Admin: 11/09/17 10:15 Dose: 10 mg Atorvastatin Calcium (Lipitor) 10 mg PO DIN MAGO PRN Reason: Protocol Last Admin: 11/08/17 19:16 Dose: Not Given Clonidine HCl (Catapres) 0.1 mg PO BID MAGO PRN Reason: Protocol Last Admin: 11/09/17 10:15 Dose: 0.1 mg Diphenhydramine HCl (Benadryl) 25 mg IVP Q4H PRN; Protocol PRN Reason: Allergy symptoms Last Admin: 11/09/17 16:00 Dose: 25 mg Enoxaparin Sodium (Lovenox) 30 mg SC 0600 MAGO PRN Reason: Protocol Last Admin: 11/09/17 05:28 Dose: 30 mg Famotidine (Pepcid) 40 mg PO HS MAGO PRN Reason: Protocol Last Admin: 11/08/17 22:01 Dose: 40 mg Cefepime HCl (Maxipime 1gm) 1 gm in 100 mls @ 100 mls/hr IVPB 0600,1400,2200 MAGO PRN Reason: Protocol Last Admin: 11/09/17 13:59 Dose: 100 mls/hr Levothyroxine Sodium (Synthroid) 125 mcg PO 0600 MAGO PRN Reason: Protocol Last Admin: 11/09/17 05:29 Dose: 125 mcg Lisinopril (Zestril) 10 mg PO DAILY MAGO PRN Reason: Protocol Last Admin: 11/09/17 10:16 Dose: 10 mg Morphine Sulfate (Morphine) 2 mg IVP Q4H PRN; Protocol PRN Reason: Pain, moderate (4-7) Last Admin: 11/09/17 16:01 Dose: 2 mg Silver Sulfadiazine (Silvadene 1% 25 Gm) 0 gm TP DAILY MAGO PRN Reason: Protocol Last Admin: 11/09/17 10:16 Dose: 25 gm Tramadol HCl (Ultram) 50 mg PO Q8 MAGO PRN Reason: Protocol Last Admin: 11/09/17 14:09 Dose: Not Given - Constitutional Appears: Well, Non-toxic, No Acute Distress - Extremities Exam Extremities Exam: absent: Calf Tenderness Additional comments: Right lower extremity focused exam: VASC: DP and PT 2/4, CFT < 3 seconds x 5 digits, temperature gradient warm to cool from proximal to distal, +1 edema noted to the lower extremity ORTHO: severe pain with palpation surrounding ulceration site, MM is 4/5 in all four compartments: dorsiflexion, plantarflexion, inversion and eversion, pain with palpation to the right hallux medial border, pain withpalpation to the left hallux medial border NEURO: protective and gross sensation intact DERM: Superficial ulceration noted to right medial ankle inferior to the medial malleolus, erythema noted in the medial aspect of the ankle with edema, mild serous drainage noted, no streaking, no tunneling, no undermining, no probe to bone , cellulitis resolving Small pin point dried blood noted to the left hallux medial border- no clinical signs of infection Assessment and Plan - Assessment and Plan (Free Text) Assessment: 77 y.o female with ulceration right foot likely secondary to venous insufficiency with cellulitis- resolving and painful bilateral halluces Plan: Patient examined and evaluated Plan discussed with Dr. Amaral Labs, chart, vitals reviewed- afebrile, absent leukocytosis Right foot X-rays reviewed- soft tissue swelling without acute articular or osseous abnormality Duplex U/S (-) DVT MRI (-) OM ABIs/PVRS Right= 1.20, Left=1.42. Impression relatively normal STEPHANIE and PVR examiantion at rest Wound culture- Pseudomonas Aeruginosa Continue antibiotic per ID Applied silvadene, and DSD to the right wound after cleansing with saline solution. Cleansed halluces with betadine and cover with bandages WBAT in surgical shoe to the right Patient transferred to TCU; Will continue to follow patient while in house <Lydia Amaral - Last Filed: 11/12/17 16:45> Objective - Vital Signs/Intake and Output Vital Signs (last 24 hours): Temp Pulse Resp BP Pulse Ox 97.3 F L 90 18 104/70 94 L 11/10/17 10:00 11/12/17 09:51 11/10/17 10:00 11/12/17 09:51 11/10/17 10:00 Attending/Attestation - Attestation I have personally seen and examined this patient.: Yes I have fully participated in the care of the patient.: Yes I have reviewed all pertinent clinical information, including history, physical exam and plan: Yes
--- NOTE | 2017-11-09 18:05 | PN ---
DATE: 11/09/2017 SUBJECTIVE: The patient was seen earlier this morning in room 314. The patient's nursing staff states that the patient is at times abusive. She is asking to continue antibiotics. I have explained to her antibiotics and risk and benefit ratio. PHYSICAL EXAMINATION: VITAL SIGNS: Temperature is 98, blood pressure is 102/60, and respiratory rate of 18. HEENT: Unremarkable. NECK: Supple. LUNGS: Decreased breath sounds. HEART: Normal S1 and S2. ABDOMEN: Soft. LABORATORY EXAMINATION: Labs are reviewed. Dr. Bey's note is reviewed. Dr. Lebron's note is also reviewed. Review of orders reveals the patient is still on cefepime. ASSESSMENT AND PLAN: This is a 77-year-old female with sepsis due to right ankle cellulitis, negative MRI, hypertension, bipolar, hypothyroidism. On cefepime, day #9, would complete 7 to 10 days. No further antibiotics are necessary. The patient insists on receiving antibiotics regarding risks and benefits of antibiotics will be given. Timothy Conroy MD
--- NOTE | 2017-11-09 21:57 | PN ---
DATE: 11/08/2017 SUBJECTIVE: The patient was seen yesterday in 314. Extensive discussion occurred with the patient regarding antibiotic use. The patient insists on getting antibiotics. PHYSICAL EXAMINATION: VITAL SIGNS: Temperature 98. HEENT: Unremarkable. NECK: Supple. LUNGS: Have decreased breath sounds. HEART: Normal S1 and S2. ABDOMEN: Soft. LABORATORY EXAMINATION: Noted. ASSESSMENT AND PLAN: A 77-year-old female with sepsis due to right ankle cellulitis, negative MRI, hypertension, bipolar, hypothyroidism. Yesterday was day #8 of therapy and the patient insists regarding antibiotics and case discussed with the patient at length. We will follow with you. Timothy Conroy MD
[2017-11-10] MEDS: Apap-Butalbital-Caffeine 325-50-40mg Tab PO PRN ×4 (02:15→23:16)
[2017-11-10] MEDS: Morphine 2 mg/ml ISec IVP PRN ×6 (03:49→21:04)
[2017-11-10] MEDS: DiphenhydrAMINE 50 mg/ml Inj IVP PRN ×6 (03:50→21:03)
[2017-11-10] MEDS: Levothyroxine 125 MCG TAB PO SCH (05:32)
[2017-11-10] MEDS: Enoxaparin 30 mg Syringe SC SCH (05:33)
[2017-11-10] MEDS: Cefepime 1gm in NS 100ml 1 GM/100 ML BAG IVPB SCH ×3 (05:33→21:04)
[2017-11-10] MEDS: Silver Sulfadiazine 1% Cream (25 gm) TP SCH (09:38)
[2017-11-10 10:05] VITALS: TEMP 97.3; O2SAT 94
--- NOTE | 2017-11-10 11:47 | CP.PCM.PN ---
Subjective - Date & Time of Evaluation Date of Evaluation: 11/10/17 Time of Evaluation: 10:35 - Subjective Subjective: Comfortable, no fevers. Objective - Vital Signs/Intake and Output Vital Signs (last 24 hours): Temp Pulse Resp BP Pulse Ox 97.8 F 7 L 18 119/68 95 11/09/17 10:00 11/10/17 09:39 11/09/17 10:00 11/10/17 09:39 11/09/17 10:00 - Medications Medications: Current Medications Acetaminophen/Butalbital/Caffeine (Fioricet) 1 tab PO Q6H PRN; Protocol PRN Reason: Pain, moderate (4-7) Last Admin: 11/10/17 08:37 Dose: 1 tab Amlodipine Besylate (Norvasc) 10 mg PO DAILY MAGO PRN Reason: Protocol Last Admin: 11/10/17 09:37 Dose: 10 mg Atorvastatin Calcium (Lipitor) 10 mg PO DIN MAGO PRN Reason: Protocol Last Admin: 11/09/17 17:38 Dose: Not Given Clonidine HCl (Catapres) 0.1 mg PO BID MAGO PRN Reason: Protocol Last Admin: 11/10/17 09:36 Dose: 0.1 mg Diphenhydramine HCl (Benadryl) 25 mg IVP Q4H PRN; Protocol PRN Reason: Allergy symptoms Last Admin: 11/10/17 08:34 Dose: 25 mg Enoxaparin Sodium (Lovenox) 30 mg SC 0600 MAGO PRN Reason: Protocol Last Admin: 11/10/17 05:33 Dose: 30 mg Famotidine (Pepcid) 40 mg PO HS MAGO PRN Reason: Protocol Last Admin: 11/09/17 21:17 Dose: 40 mg Cefepime HCl (Maxipime 1gm) 1 gm in 100 mls @ 100 mls/hr IVPB 0600,1400,2200 MAGO PRN Reason: Protocol Last Admin: 11/10/17 05:33 Dose: 100 mls/hr Levothyroxine Sodium (Synthroid) 125 mcg PO 0600 MAGO PRN Reason: Protocol Last Admin: 11/10/17 05:32 Dose: 125 mcg Lisinopril (Zestril) 10 mg PO DAILY MAGO PRN Reason: Protocol Last Admin: 11/10/17 09:39 Dose: 10 mg Morphine Sulfate (Morphine) 2 mg IVP Q4H PRN; Protocol PRN Reason: Pain, moderate (4-7) Last Admin: 11/10/17 08:35 Dose: 2 mg Silver Sulfadiazine (Silvadene 1% 25 Gm) 0 gm TP DAILY MAGO PRN Reason: Protocol Last Admin: 11/10/17 09:38 Dose: 25 gm Tramadol HCl (Ultram) 50 mg PO Q8 MAGO PRN Reason: Protocol Last Admin: 11/10/17 05:32 Dose: 50 mg - Constitutional Appears: Non-toxic, Chronically Ill - Head Exam Head Exam: NORMAL INSPECTION - Respiratory Exam Respiratory Exam: Decreased Breath Sounds - Cardiovascular Exam Cardiovascular Exam: +S1, +S2 - GI/Abdominal Exam GI & Abdominal Exam: Soft. absent: Tenderness Assessment and Plan - Assessment and Plan (Free Text) Plan: Assessment sepsis due to right ankle cellulitis with right heel deep ulcer growing Pseudomonas HTN bipolar disorder hypothyroidism skin cancer on the face anxiety disorder arthritis history of E. coli UTI S/P cholecystectomy S/P appendectomy Plan continue Cefepime day 10 for at least 10 days - MRI of foot does not show osteomyelitis - can be switched to PO antibiotics but patient wants IV antibiotics follow up further plans of Podiatry will continue to monitor clinically discussed with Dr. Lebron previously
--- NOTE | 2017-11-10 13:00 | PN ---
DATE: 11/10/2017 SUBJECTIVE: The patient is 77 years old, seen and examined, has some complaints, but overall doing better. The pain in her left big toe, very ingrown toenail was removed. Some pain to the right medial malleolar area. PHYSICAL EXAMINATION: GENERAL: Otherwise, on examination, she is awake, alert, oriented, communicative. VITAL SIGNS: She is afebrile, pulse 79, respirations 18, blood pressure 105/63. LUNGS: Bilateral fair airflow. No rhonchi or crackle. HEART: S1 and S2 audible. ABDOMEN: Soft. Nontender. No rebound. No guarding. NEUROLOGICAL: She is awake, alert, oriented, communicative. ASSESSMENT: 1. Right medial malleolar venous stasis ulcers. MRI negative for osteomyelitis and leg Doppler arterial negative for peripheral vascular disease. 2. Hypertension. 3. Hyperlipidemia. PLAN: We will continue on current medication. Continue current antibiotic. Local wound care is being done Podiatry team. Encourage ambulation, but she states she does not want to ambulate and she want her foot to heal. She is very upset that physical therapist is visiting her everyday. She states once her wound heals, she will start walking herself. We will follow up this patient in the a.m. Salomón Lebron MD
[2017-11-11] MEDS: Morphine 2 mg/ml ISec IVP PRN ×5 (04:38→22:39)
[2017-11-11] MEDS: Cefepime 1gm in NS 100ml 1 GM/100 ML BAG IVPB SCH ×2 (05:36→14:10)
[2017-11-11] MEDS: DiphenhydrAMINE 50 mg/ml Inj IVP PRN ×4 (05:36→22:39)
[2017-11-11] MEDS: Enoxaparin 30 mg Syringe SC SCH (05:36)
[2017-11-11] MEDS: Levothyroxine 125 MCG TAB PO SCH (05:37)
[2017-11-11] MEDS: Apap-Butalbital-Caffeine 325-50-40mg Tab PO PRN ×3 (06:08→21:41)
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
[2017-11-11] MEDS: Silver Sulfadiazine 1% Cream (25 gm) TP SCH (10:12)
[2017-11-11] MEDS ORDERED: Cefepime 1gm in NS 100ml 1 GM/100 ML BAG IVPB SCH (14:30)
--- NOTE | 2017-11-11 14:34 | CP.PCM.PCO ---
Physician Communication Note - Physician Communication Note Physician Communication Note: Pt. upset,did not see pt,completed 10 days of Abx for [facility]STI-d/w Dr. Lebron
--- NOTE | 2017-11-11 23:29 | CP.PCM.PN ---
<Bib Valentin - Last Filed: 11/11/17 23:25> Subjective - Date & Time of Evaluation Date of Evaluation: 11/11/17 Time of Evaluation: 12:00 - Subjective Subjective: Podiatry Progress Note- Dr. Amaral/Dr. Bey 76 year old female seen for right foot ulceration likely secondary to venous insufficiency with cellulitis, resolving and painful halluces bilaterally. Patient reports halluces and right ankle ulceration is painful. Reports worse when sheets are on top the feet while in bed. Denies acute overnight events. Denies nausea, fever, shortness of breath, chest pains or chills. Objective - Vital Signs/Intake and Output Vital Signs (last 24 hours): Temp Pulse Resp BP Pulse Ox 97.3 F L 88 18 100/71 94 L 11/10/17 10:00 11/11/17 17:28 11/10/17 10:00 11/11/17 17:28 11/10/17 10:00 - Medications Medications: Current Medications Acetaminophen/Butalbital/Caffeine (Fioricet) 1 tab PO Q6H PRN; Protocol PRN Reason: Pain, moderate (4-7) Last Admin: 11/11/17 21:41 Dose: 1 tab Amlodipine Besylate (Norvasc) 10 mg PO DAILY MAGO PRN Reason: Protocol Last Admin: 11/11/17 10:11 Dose: 10 mg Atorvastatin Calcium (Lipitor) 10 mg PO DIN MAGO PRN Reason: Protocol Last Admin: 11/11/17 17:29 Dose: Not Given Clonidine HCl (Catapres) 0.1 mg PO BID MAGO PRN Reason: Protocol Last Admin: 11/11/17 17:28 Dose: 0.1 mg Diphenhydramine HCl (Benadryl) 25 mg IVP Q4H PRN; Protocol PRN Reason: Allergy symptoms Last Admin: 11/11/17 22:39 Dose: 25 mg Docusate Sodium (Colace) 200 mg PO DAILY [facility] Last Admin: 11/11/17 16:00 Dose: 200 mg Enoxaparin Sodium (Lovenox) 30 mg SC 0600 MAGO PRN Reason: Protocol Last Admin: 11/11/17 05:36 Dose: 30 mg Famotidine (Pepcid) 40 mg PO HS MAGO PRN Reason: Protocol Last Admin: 11/11/17 21:41 Dose: 40 mg Levothyroxine Sodium (Synthroid) 125 mcg PO 0600 MAGO PRN Reason: Protocol Last Admin: 11/11/17 05:37 Dose: 125 mcg Lisinopril (Zestril) 10 mg PO DAILY MAGO PRN Reason: Protocol Last Admin: 11/11/17 10:12 Dose: 10 mg Morphine Sulfate (Morphine) 2 mg IVP Q4H PRN; Protocol PRN Reason: Pain, moderate (4-7) Last Admin: 11/11/17 22:39 Dose: 2 mg Silver Sulfadiazine (Silvadene 1% 25 Gm) 0 gm TP DAILY MAGO PRN Reason: Protocol Last Admin: 11/11/17 10:12 Dose: 1 gm Tramadol HCl (Ultram) 50 mg PO Q8 MAGO PRN Reason: Protocol Last Admin: 11/11/17 21:42 Dose: Not Given - Constitutional Appears: Well, Non-toxic, No Acute Distress - Extremities Exam Extremities Exam: absent: Calf Tenderness Additional comments: Lower extremity focused exam: VASC: DP and PT 2/4 bilaterally, CFT < 3 seconds x 10 digits, temperature gradient warm to cool from proximal to distal bilaterally, +1 edema noted to the lower extremity bilaterally ORTHO: severe pain with palpation surrounding ulceration site at right ankle, MM is 4/5 in all four compartments: dorsiflexion, plantarflexion, inversion and eversion bilaterally, pain with palpation to halluces bilaterally NEURO: protective and gross sensation intact DERM: Superficial ulceration noted to right medial ankle inferior to the medial malleolus, erythema noted in the medial aspect of the ankle with edema- resolving, mild serous drainage noted, no streaking, no tunneling, no undermining, no probe to bone ,cellulitis resolving Small pin point dried blood noted to the left hallux medial border- no clinical signs of infection - Neurological Exam Neurological Exam: Alert, Awake Assessment and Plan - Assessment and Plan (Free Text) Assessment: 77 y.o female with ulceration right foot likely secondary to venous insufficiency with cellulitis- resolving and painful bilateral halluces Plan: Patient examined and evaluated Plan discussed with Dr. Bey Labs, chart, vitals reviewed- afebrile, absent leukocytosis Right foot X-rays reviewed- soft tissue swelling without acute articular or osseous abnormality Duplex U/S (-) DVT MRI (-) OM ABIs/PVRS Right= 1.20, Left=1.42. Impression relatively normal STEPHANIE and PVR examiantion at rest Wound culture- Pseudomonas Aeruginosa Continue antibiotic per ID Applied silvadene, and DSD to the right wound after cleansing with saline solution. Cleansed halluces with betadine and left to air opem WBAT in surgical shoe to the right Will continue to follow patient while in house <Delta Bey - Last Filed: 11/12/17 08:14> Objective - Vital Signs/Intake and Output Vital Signs (last 24 hours): Temp Pulse Resp BP Pulse Ox 97.3 F L 88 18 100/71 94 L 11/10/17 10:00 11/11/17 17:28 11/10/17 10:00 11/11/17 17:28 11/10/17 10:00 - Medications Medications: Current Medications Acetaminophen/Butalbital/Caffeine (Fioricet) 1 tab PO Q6H PRN; Protocol PRN Reason: Pain, moderate (4-7) Last Admin: 11/12/17 03:50 Dose: 1 tab Amlodipine Besylate (Norvasc) 10 mg PO DAILY MAGO PRN Reason: Protocol Last Admin: 11/11/17 10:11 Dose: 10 mg Atorvastatin Calcium (Lipitor) 10 mg PO DIN MAGO PRN Reason: Protocol Last Admin: 11/11/17 17:29 Dose: Not Given Clonidine HCl (Catapres) 0.1 mg PO BID MAGO PRN Reason: Protocol Last Admin: 11/11/17 17:28 Dose: 0.1 mg Diphenhydramine HCl (Benadryl) 25 mg IVP Q4H PRN; Protocol PRN Reason: Allergy symptoms Last Admin: 11/12/17 06:16 Dose: 25 mg Docusate Sodium (Colace) 200 mg PO DAILY MAGO Last Admin: 11/11/17 16:00 Dose: 200 mg Enoxaparin Sodium (Lovenox) 30 mg SC 0600 MAGO PRN Reason: Protocol Last Admin: 11/12/17 06:16 Dose: 30 mg Famotidine (Pepcid) 40 mg PO HS MAGO PRN Reason: Protocol Last Admin: 11/11/17 21:41 Dose: 40 mg Levothyroxine Sodium (Synthroid) 125 mcg PO 0600 MAGO PRN Reason: Protocol Last Admin: 11/12/17 06:16 Dose: 125 mcg Lisinopril (Zestril) 10 mg PO DAILY MAGO PRN Reason: Protocol Last Admin: 11/11/17 10:12 Dose: 10 mg Morphine Sulfate (Morphine) 2 mg IVP Q4H PRN; Protocol PRN Reason: Pain, moderate (4-7) Last Admin: 11/12/17 06:15 Dose: 2 mg Silver Sulfadiazine (Silvadene 1% 25 Gm) 0 gm TP DAILY MAGO PRN Reason: Protocol Last Admin: 11/11/17 10:12 Dose: 1 gm Tramadol HCl (Ultram) 50 mg PO Q8 MAGO PRN Reason: Protocol Last Admin: 11/12/17 05:02 Dose: Not Given Attending/Attestation - Attestation I have personally seen and examined this patient.: Yes I have fully participated in the care of the patient.: Yes I have reviewed all pertinent clinical information, including history, physical exam and plan: Yes
--- NOTE | 2017-11-11 23:53 | PN ---
DATE: 11/11/2017 SUBJECTIVE: The patient is a 77 years old, seen and examined, complained of having pain in both big toes, complained of having pain in the right malleolus, although wound has healed. She is refusing to have physical therapy. She states because of the pain, she cannot walk; however, she was found to be walking to the nursing station to complain about certain things. I also had discussion with the ID. She seems to be doing well and her erythema of the right medial malleolus has improved. So, her antibiotics have been stopped. The patient was given notice to be discharged in morning. The patient states that she is not ready to go home. She has no arrangement at home. Travel Registered Nurse Oncology were involved, and the patient got appointment with Dr. Patton and she is going to follow up with doctor as outpatient. She is still not ready to go home today; however, tentatively she has been scheduled to be discharged tomorrow around 1:00. On examination today, she is awake, alert, oriented, seems to be upset. No nausea or vomiting. She states her appetite is poor. She has been getting pain killer [id number], although her pain seems to be out of proportion to her sickness, seems to be addiction element. I explained to her that I am very concerned about it. She states she has been using this medicine with her primary care doctor and she will be okay with that. PHYSICAL EXAMINATION: GENERAL: She is awake, alert, oriented, communicative. VITAL SIGNS: She is afebrile, pulse 80, respirations 18, blood pressure 100/71. LUNGS: Bilateral fair airflow. No rhonchi or crackle. HEART: S1 and S2 audible. ABDOMEN: Soft. Nontender. No rebound. No guarding. NEUROLOGICAL: The patient is awake, alert, oriented, communicative. ASSESSMENT: 1. Constipation, secondary to narcotics. 2. Right medial malleolar venous stasis ulcer. 3. Hypothyroidism. PLAN: We will digital advertising analyst her a dose of Colace 200 daily and one dose of lactulose, and we will reevaluate the patient in a.m. and possible discharge in the a.m. Salomón Lebron MD
[2017-11-12] MEDS: DiphenhydrAMINE 50 mg/ml Inj IVP PRN ×3 (02:29→10:01)
[2017-11-12] MEDS: Morphine 2 mg/ml ISec IVP PRN ×3 (02:30→10:01)
[2017-11-12] MEDS: Apap-Butalbital-Caffeine 325-50-40mg Tab PO PRN ×2 (03:50→10:22)
[2017-11-12] MEDS: Enoxaparin 30 mg Syringe SC SCH (06:16)
[2017-11-12] MEDS: Levothyroxine 125 MCG TAB PO SCH (06:16)
[2017-11-12] MEDS: Silver Sulfadiazine 1% Cream (25 gm) TP SCH (09:51)
[2017-11-12 10:07] VITALS: BP 104/70; PULSE 90
--- NOTE | 2017-11-12 10:10 | CP.PCM.PN ---
<Vicenta Faulkner - Last Filed: 11/12/17 10:24> Subjective - Date & Time of Evaluation Date of Evaluation: 11/12/17 Time of Evaluation: 10:04 - Subjective Subjective: Podiatry Progress Note for Dr. Bey 76 year old female seen and evaluated at bedside for right foot ulceration likely secondary to venous insufficiency. Patient reports pain to halluces bilaterally and right medial ankle ulceration. Denies any other pedal complaints at this time. Patient denies N/V/F/SOB/CP/C. Objective - Vital Signs/Intake and Output Vital Signs (last 24 hours): Temp Pulse Resp BP Pulse Ox 97.3 F L 88 18 100/71 94 L 11/10/17 10:00 11/11/17 17:28 11/10/17 10:00 11/11/17 17:28 11/10/17 10:00 - Medications Medications: Current Medications Acetaminophen/Butalbital/Caffeine (Fioricet) 1 tab PO Q6H PRN; Protocol PRN Reason: Pain, moderate (4-7) Last Admin: 11/12/17 03:50 Dose: 1 tab Amlodipine Besylate (Norvasc) 10 mg PO DAILY MAGO PRN Reason: Protocol Last Admin: 11/11/17 10:11 Dose: 10 mg Atorvastatin Calcium (Lipitor) 10 mg PO DIN MAGO PRN Reason: Protocol Last Admin: 11/11/17 17:29 Dose: Not Given Clonidine HCl (Catapres) 0.1 mg PO BID MAGO PRN Reason: Protocol Last Admin: 11/11/17 17:28 Dose: 0.1 mg Diphenhydramine HCl (Benadryl) 25 mg IVP Q4H PRN; Protocol PRN Reason: Allergy symptoms Last Admin: 11/12/17 06:16 Dose: 25 mg Docusate Sodium (Colace) 200 mg PO DAILY [facility] Last Admin: 11/11/17 16:00 Dose: 200 mg Enoxaparin Sodium (Lovenox) 30 mg SC 0600 MAGO PRN Reason: Protocol Last Admin: 11/12/17 06:16 Dose: 30 mg Famotidine (Pepcid) 40 mg PO HS MAGO PRN Reason: Protocol Last Admin: 11/11/17 21:41 Dose: 40 mg Levothyroxine Sodium (Synthroid) 125 mcg PO 0600 MAGO PRN Reason: Protocol Last Admin: 11/12/17 06:16 Dose: 125 mcg Lisinopril (Zestril) 10 mg PO DAILY [facility]O PRN Reason: Protocol Last Admin: 11/11/17 10:12 Dose: 10 mg Morphine Sulfate (Morphine) 2 mg IVP Q4H PRN; Protocol PRN Reason: Pain, moderate (4-7) Last Admin: 11/12/17 06:15 Dose: 2 mg Silver Sulfadiazine (Silvadene 1% 25 Gm) 0 gm TP DAILY MAGO PRN Reason: Protocol Last Admin: 11/11/17 10:12 Dose: 1 gm Tramadol HCl (Ultram) 50 mg PO Q8 MAGO PRN Reason: Protocol Last Admin: 11/12/17 05:02 Dose: Not Given - Constitutional Appears: Well, Non-toxic, No Acute Distress - Head Exam Head Exam: ATRAUMATIC, NORMOCEPHALIC - Extremities Exam Additional comments: VASC: DP and PT 2/4 bilaterally, CFT < 3 seconds to all 10 digits, temperature gradient warm to cool, +1 brawny edema noted to the lower extremity bilaterally ORTHO: severe pain with palpation surrounding ulceration site at right ankle, MMT 4/5, tenderness to palpation of halluces bilaterally NEURO: protective and gross sensation intact DERM: Superficial ulceration noted to right medial ankle inferior to the medial malleolus with surrounding erythema. Mild serous drainage noted. No streaking, no undermining, no probe to bone, no clinical signs of infection. - Neurological Exam Neurological Exam: Alert, Awake, Oriented x3 - Psychiatric Exam Psychiatric exam: Normal Affect, Normal Mood Assessment and Plan - Assessment and Plan (Free Text) Assessment: 77 yo female with right inferior medial malleolar ulceration secondary to venous insufficiency Plan: Patient examined, evaluated, and seen with Dr. Bey Labs, chart, vitals reviewed- afebrile, absent leukocytosis Continue antibiotic per ID Cleansed right inferior medial malleolar wound with saline and dressed with silvadene and DSD; wound resolving. Halluces dressed with large bandaid WBAT in surgical shoe to the right Will continue to follow patient while in house <Delta Bey - Last Filed: 11/15/17 12:11> Objective - Vital Signs/Intake and Output Vital Signs (last 24 hours): Temp Pulse Resp BP Pulse Ox 97.3 F L 90 18 104/70 94 L 11/10/17 10:00 11/12/17 09:51 11/10/17 10:00 11/12/17 09:51 11/10/17 10:00 Attending/Attestation - Attestation I have personally seen and examined this patient.: Yes I have fully participated in the care of the patient.: Yes I have reviewed all pertinent clinical information, including history, physical exam and plan: Yes
--- NOTE | 2017-11-12 11:50 | PN ---
DATE: 11/12/2017 SUBJECTIVE: The patient is in bed, in no acute distress, nontoxic. PHYSICAL EXAMINATION: VITAL SIGNS: Temperature is 97, blood pressure is 100/70, respiratory rate of 18. HEENT: Unremarkable. NECK: Supple. LUNGS: Have decreased breath sounds. HEART: Normal S1, S2. ABDOMEN: Soft, nontender. LABORATORY EXAMINATION: Reveals the patient . ASSESSMENT AND PLAN: This is a 77-year-old female with a right ankle cellulitis, right heel deep ulcer growing Pseudomonas and has completed antibiotic therapy in a patient who is hypertensive, has bipolar, hypothyroidism and was upset about stopping antibiotics, possible discharge today. Timothy Conroy MD
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
== END 2017-11-12 13:40 | disposition home or self-care (01) | DRG 593 ==
LOC: TRCU 13:54
PROVIDERS: ADMIT Internal Medicine; ATTEND Internal Medicine
PROC: F08Z4ZZ Home Management Treatment (ICD-10-PCS; principal; 2017-11-07)
PROC: 0HBRXZZ Excision of Toe Nail, External Approach (ICD-10-PCS; 2017-11-08)
DX: L97.319 Non-pressure chronic ulcer of right ankle with unspecified severity (principal); L03.115 Cellulitis of right lower limb; L60.0 Ingrowing nail; I12.9 Hypertensive chronic kidney disease with stage 1 through stage 4 chronic kidney disease, or unspecified chronic kidney disease; N18.9 Chronic kidney disease, unspecified; I87.2 Venous insufficiency (chronic) (peripheral); B96.5 Pseudomonas (aeruginosa) (mallei) (pseudomallei) as the cause of diseases classified elsewhere; C44.319 Basal cell carcinoma of skin of other parts of face; E03.9 Hypothyroidism, unspecified; K59.03 Drug induced constipation; T40.605A Adverse effect of unspecified narcotics, initial encounter; M06.9 Rheumatoid arthritis, unspecified; F31.9 Bipolar disorder, unspecified; F41.9 Anxiety disorder, unspecified; E78.5 Hyperlipidemia, unspecified; Z88.2 Allergy status to sulfonamides; Z87.440 Personal history of urinary (tract) infections

== ENCOUNTER 2018-02-10 19:38 | Inpatient (IN) | payer MEDICARE, MEDICAID ==
[2018-02-10 19:39] VITALS: BMI 19.7
--- NOTE | 2018-02-10 20:33 | ED PDOC ---
Arrival/HPI - General Chief Complaint: Syncope Time Seen by Provider: 02/10/18 19:47 Historian: Patient - History of Present Illness Narrative History of Present Illness (Text): 02/10/18 20:00 Yas Cash is a 77 year old female, whose past medical history includes hypertension, who presents to the Emergency department complaining of recurrent syncopal episodes for the past week. Patient states she was at the court house earlier today, where passed out on a couple occasions. Patient was recently admitted at [facility] for similar complaints and just discharged. Patient states she still feels dizziness and near-syncopal. Patient does no understand why she was discharged. Patient denies any fever, chills, chest pain, shortness of breath, nausea, vomiting, diarrhea, or any other complaints. Symptom Onset: Gradual Symptom Course: Unchanged Activities at Onset: Light Context: Home Past Medical History - Provider Review Nursing Documentation Reviewed: Yes - Infectious Disease Hx of Infectious Diseases: None - Reproductive Menopause: Yes - Cardiac Hx Hypertension: Yes Hx Pacemaker: No Hx Peripheral Edema: Yes (chronic edema and redness) - Pulmonary Hx Pneumonia: Yes - Neurological Hx Migraine: Yes Hx Seizures: No Hx Syncope: Yes - HEENT Hx HEENT Disorder: No Hx Cataracts: No (denied) - Renal Hx Renal Disorder: Yes - Endocrine/Metabolic Hx Hypothyroidism: Yes - Hematological/Oncological Hx Cancer: Yes - Integumentary Hx Dermatological Disorder: Yes Other/Comment: 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, skin cancer removed from L nose, 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 - Musculoskeletal/Rheumatological Hx Arthritis: Yes Hx Fractures: Yes (L leg L ankle, L foot) - Gastrointestinal Hx Gastritis: Yes Hx Gastrointestinal Ulcer: Yes - Genitourinary/Gynecological Hx Sexually Transmitted Diseases: No - Psychiatric Hx Anxiety: No (denied) Hx Bipolar Disorder: No (denied) Hx Substance Use: No - Surgical History Hx Thyroidectomy: Yes (secondary to benign tumor) - Anesthesia Hx Anesthesia: Yes Hx Anesthesia Reactions: No Hx Malignant Hyperthermia: No - Suicidal Assessment Feels Threatened In Home Enviroment: No Family/Social History - Physician Review Nursing Documentation Reviewed: Yes Family/Social History: Unknown Family HX Smoking Status: Never Smoked Hx Alcohol Use: No Hx Substance Use: No Hx Substance Use Treatment: No Allergies/Home Meds Allergies/Adverse Reactions: Allergies oxycodone HCl [From Percocet] Allergy (Verified 10/23/18 03:05) urticaria to "IV percocet" Sulfa (Sulfonamide Antibiotics) Allergy (Verified 02/07/18 03:05) SHORTNESS OF BREATH aspirin Adverse Reaction (Verified 02/07/18 03:05) pt has ulcer ciprofloxacin Adverse Reaction (Verified 02/11/18 12:33) DIZZINESS doxycycline Adverse Reaction (Verified 02/11/18 12:33) DIZZINESS ibuprofen [From Motrin IB] Adverse Reaction (Verified 02/10/18 20:04) VOMITING naproxen Adverse Reaction (Verified 02/07/18 03:05) pt has ulcer Home Medications: Home Meds Medication Instructions Recorded Confirmed Clonidine 1 tab PO DAILY 02/07/18 02/10/18 Lisinopril 1 tab PO DAILY 02/07/18 02/10/18 Synthroid 125 mcg PO DAILY 02/07/18 02/10/18 Ranitidine HCl [Zantac 75] 300 mg PO DAILY 02/10/18 02/12/18 DiphenhydrAMINE [Benadryl] 25 mg PO 02/11/18 Hydrochlorothiazide [Microzide] 12.5 mg PO 02/11/18 Multivitamin [Daily Mónica] 1 tab PO 02/11/18 Naloxegol Oxalate [Movantik] 02/11/18 Omeprazole 40 mg PO 02/11/18 Torsemide [Demadex] 20 mg PO 02/11/18 amLODIPine [Norvasc] 10 mg PO 02/11/18 amLODIPine [Norvasc] 10 mg PO 02/11/18 Ranitidine HCl [Zantac 300] 300 mg PO 02/12/18 Review of Systems - Physician Review All systems were reviewed & negative as marked: Yes - Review of Systems Constitutional: Other (+light-headedness). absent: Fevers Eyes: Normal ENT: Normal Respiratory: Normal. absent: SOB, Cough Cardiovascular: Syncope Gastrointestinal: Normal. absent: Abdominal Pain, Diarrhea, Nausea, Vomiting Genitourinary Female: Normal. absent: Dysuria, Frequency, Hematuria, Urine Output Changes Musculoskeletal: Normal. absent: Back Pain, Neck Pain Skin: Normal. absent: Rash Neurological: Dizziness Endocrine: Normal Hemo/Lymphatic: Normal Psychiatric: Normal Physical Exam Vital Signs Reviewed: Yes Vital Signs Temp Pulse Resp BP Pulse Ox 02/10/18 20:18 97.9 F 87 18 156/92 H 95 Temperature: Afebrile Blood Pressure: Normal Pulse: Regular Respiratory Rate: Normal Appearance: Positive for: Well-Appearing, Non-Toxic, Comfortable Pain Distress: None Mental Status: Positive for: Alert and Oriented X 3 - Systems Exam Head: Present: Atraumatic, Normocephalic Pupils: Present: PERRL Extroacular Muscles: Present: EOMI Conjunctiva: Present: Normal Mouth: Present: Moist Mucous Membranes Neck: Present: Normal Range of Motion. No: Meningeal Signs, MIDLINE TENDERNESS, Paraspinal Tenderness Respiratory/Chest: Present: Clear to Auscultation, Good Air Exchange. No: Respiratory Distress, Accessory Muscle Use Cardiovascular: Present: Regular Rate and Rhythm, Normal S1, S2. No: Murmurs Abdomen: No: Tenderness, Distention, Peritoneal Signs Back: Present: Normal Inspection. No: CVA Tenderness, Midline Tenderness, Paraspinal Tenderness Upper Extremity: Present: Normal Inspection. No: Cyanosis, Edema Lower Extremity: Present: Normal Inspection. No: Edema Neurological: Present: GCS=15, CN II-XII Intact, Speech Normal, Motor Func Grossly Intact, Normal Sensory Function, Normal Cerebellar Funct, Memory Normal Skin: Present: Warm, Dry, Normal Color. No: Rashes Psychiatric: Present: Alert, Oriented x 3, Normal Insight, Normal Concentration Medical Decision Making ED Course and Treatment: 02/10/18 20:00 Impression: 77 year old female complaining of recurrent episodes of syncope, light- headedness, and dizziness. Plan: -- CT Head w/o contrast -- EKG -- Chest X-ray -- Labs, cardiac enzymes -- Reassess and disposition Prior Visits: Notes and results from previous visits were reviewed. Progress Notes: Reviewed EKG, NSR at 83 bpm. Occasional premature supraventricular complexes. No acute changes. 02/10/18 22:23 Reviewed radiology, Chest X-ray show no acute processes. CT Head shows: BRAIN Chronic periventricular and subcortical microvascular disease is seen. VENTRICLES: There is generalized parenchymal atrophy noted as demonstrated by symmetrical dilatation of ventricles and sulci. ORBITS: The orbits are unremarkable. SINUSES AND MASTOIDS: The paranasal sinuses and mastoid air cells are clear. BONES: No fracture. SOFT TISSUES: Unremarkable. MISCELLANEOUS: No acute intracranial pathology. IMPRESSION: 1. There is generalized parenchymal atrophy noted as demonstrated by symmetrical dilatation of ventricles and sulci. 2. Chronic periventricular and subcortical microvascular disease is seen. 3. No acute intracranial pathology. Electronically signed on Feb 10, 2018 10:03:19 PM EDT by: David Wahl M.D., SAURABH Certified By [facility] [employer] [facility] Fellowship Trained MRI and CT Specialist 02/10/18 23:[address] Lebron, who requests pt go to hospitalist service. 02/10/18 23:57 Case discussed with medical library assistant corporate controller, who is aware and agrees with plan. 02/11/18 00:[address] Barr, who is aware and agrees with plan. Accepts pt in to hospitalist service. Pt will go to remote telemetry observation for syncope. - Lab Interpretations I have reviewed the lab results: Yes - RAD Interpretation Radiology Orders: 02/10/18 20:03 HEAD W/O CONTRAST [CT] Stat CHEST PORTABLE [RAD] Stat Model Home Sales Greeter: ED Physician, Radiologist - EKG Interpretation Interpreted by ED Physician: Yes Type: 12 lead EKG - Scribe Statement The provider has reviewed the documentation as recorded by the Scribe Tequila Lafleur Provider Scribe Attestation: All medical record entries made by the Scribe were at my direction and personally dictated by me. I have reviewed the chart and agree that the record accurately reflects my personal performance of the history, physical exam, medical decision making, and the department course for this patient. I have also personally directed, reviewed, and agree with the discharge instructions and disposition. Disposition/Present on Arrival - Present on Arrival Any Indicators Present on Arrival: No History of DVT/PE: No History of Uncontrolled Diabetes: No Urinary Catheter: No History of Decub. Ulcer: No History Surgical Site Infection Following: None - Disposition Have Diagnosis and Disposition been Completed?: Yes Diagnosis: Syncope Disposition: HOSPITALIZED Disposition Time: 23:43 Condition: GOOD
[2018-02-10 20:42] LABS: HEMOGLOBIN 11.7 g/dL (12.0-16.0); MEAN CELL VOLUME 89.9 fl (80.0-105.0); MEAN CORPUSCULAR HEMOGLOBIN 28.8 pg (25.0-35.0); MEAN CORPUSCULAR HGB CONC 32.1 g/dl (31.0-37.0); MEAN PLATELET VOLUME 9.2 fl (7.0-11.0); RBC 4.06 10^6/uL (3.5-6.1); RED CELL DISTRIBUTION WIDTH 13.5 % (11.5-14.5); WHITE BLOOD COUNT 8.7 10^3/uL (4.5-11.0)
[2018-02-10 20:51] LABS: INR 0.98; PROTHROMBIN TIME 11.2 SECONDS (9.4-12.5)
[2018-02-10 20:54] LABS: ALB/GLOB RATIO 1.3 (1.1-1.8); ALBUMIN 4.2 g/dL (3.0-4.8); ALT/SGPT 32 U/L (7-56); AST/SGOT 36 U/L (14-36); BLOOD UREA NITROGEN 23 mg/dL (7-21); CALCIUM 9.4 mg/dL (8.4-10.5); GFR NON-AFRICAN AMERICAN > 60
[2018-02-10 21:05] LABS: TROPONIN I < 0.01 ng/mL
--- NOTE | 2018-02-11 00:22 | CP.PCM.HP ---
<Masood Croft - Last Filed: 02/11/18 00:50> History of Present Illness - History of Present Illness History of Present Illness: Masood Croft, PGY1 Hospital H&P This is a 77F with PMH of HTN, PUD, MRSA of the right foot, HLD, hypothyroidism, bipolar disorder and chronic headache presenting to the ED for syncopal episode earlier today while at the [facility]. 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 She states she was sitting down at time of syncopal episode, felt dizzy, warm and nauseas and subsequently lost consciousness. LOC was witnessed and not associated with any head trauma. She states she was worked up at [facility] for similar complaints recently. She currently denies CP, SOB, head aches, fevers, chills, nausea, vomiting, back pain, urinary complaints, numbness, tingling, abdominal pain, swelling, cough, recent travel and recent sickness. 12 point ROS noted here, otherwise unremarkable. PMD: Dr. Lebron PMH: as above SH: denies drinking, smoking and drugs Sx: appendectomy, gallbladder removal and thyroid removal in 1996 FH: father passed from kidney problems All: oxycodone, sulfa, ASA, naproxen Present on Admission - Present on Admission Any Indicators Present on Admission: No Past Patient History - Infectious Disease Hx of Infectious Diseases: None - Past Social History Smoking Status: Never Smoked - CARDIAC Hx Hypertension: Yes Hx Pacemaker: No Hx Peripheral Edema: Yes (chronic edema and redness) - PULMONARY Hx Pneumonia: Yes - NEUROLOGICAL Hx Migraine: Yes Hx Seizures: No Hx Syncope: Yes - HEENT Hx HEENT Problems: No Hx Cataracts: No (denied) - RENAL Hx Chronic Kidney Disease: Yes - ENDOCRINE/METABOLIC Hx Hypothyroidism: Yes - HEMATOLOGICAL/ONCOLOGICAL Hx Cancer: Yes - INTEGUMENTARY Hx Dermatological Problems: Yes Other/Comment: 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, skin cancer removed from L nose, 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 - MUSCULOSKELETAL/RHEUMATOLOGICAL Hx Arthritis: Yes Hx Fractures: Yes (L leg L ankle, L foot) - GASTROINTESTINAL Hx Gastritis: Yes - GENITOURINARY/GYNECOLOGICAL Hx Sexually Transmitted Disorders: No - PSYCHIATRIC Hx Anxiety: No (denied) Hx Bipolar Disorder: No (denied) Hx Substance Use: No - SURGICAL HISTORY Hx Thyroidectomy: Yes (secondary to benign tumor) - ANESTHESIA Hx Anesthesia: Yes Hx Anesthesia Reactions: No Hx Malignant Hyperthermia: No Meds Allergies/Adverse Reactions: Allergies Allergy/AdvReac Type Severity Reaction Status Date / Time oxycodone HCl [From Percocet] Allergy urticaria Verified 02/07/18 03:05 to "IV percocet" Sulfa (Sulfonamide Allergy SHORTNESS Verified 02/07/18 03:05 Antibiotics) OF BREATH aspirin AdvReac pt has Verified 02/07/18 03:05 ulcer ibuprofen [From Motrin IB] AdvReac VOMITING Verified 02/10/18 20:04 naproxen AdvReac pt has Verified 02/07/18 03:05 ulcer Physical Exam - Constitutional Appears: No Acute Distress - Head Exam Head Exam: ATRAUMATIC, NORMAL INSPECTION - Eye Exam Eye Exam: EOMI Pupil Exam: PERRL - ENT Exam ENT Exam: Mucous Membranes Moist - Respiratory Exam Respiratory Exam: Clear to Auscultation Bilateral. absent: Respiratory Distress - Cardiovascular Exam Cardiovascular Exam: REGULAR RHYTHM, +S1, +S2 - GI/Abdominal Exam GI & Abdominal Exam: Normal Bowel Sounds. absent: Firm, Guarding - Extremities Exam Extremities exam: Positive for: normal inspection. Negative for: calf tenderness - Neurological Exam Neurological exam: Alert, CN II-XII Intact, Oriented x3 - Skin Skin Exam: Normal Color, Warm Results - Vital Signs Recent Vital Signs: Last Vital Signs Temp 97.9 F 02/10/18 20:18 Pulse 87 02/10/18 20:18 Resp 18 02/10/18 20:18 BP 156/92 H 02/10/18 20:18 Pulse Ox 95 02/10/18 20:18 - Labs Result Diagrams: 02/10/18 20:35 02/10/18 20:35 Labs: Laboratory Results - last 24 hr 02/10/18 02/10/18 02/10/18 20:35 20:35 20:35 WBC 8.7 RBC 4.06 Hgb 11.7 L Hct 36.5 MCV 89.9 MCH 28.8 MCHC 32.1 RDW 13.5 Plt Count 302 MPV 9.2 PT 11.2 INR 0.98 APTT 31.0 Sodium 139 Potassium 3.9 Chloride 105 Carbon Dioxide 26 Anion Gap 12 BUN 23 H Creatinine 0.8 Est GFR ( Amer) > 60 Est GFR (Non-Af Amer) > 60 Random Glucose 97 Calcium 9.4 Total Bilirubin 0.4 AST 36 D ALT 32 Alkaline Phosphatase 136 H D Lactate Dehydrogenase 639 Total Creatine Kinase 105 Troponin I < 0.01 Total Protein 7.3 Albumin 4.2 Globulin 3.1 Albumin/Globulin Ratio 1.3 Assessment & Plan - Assessment and Plan (Free Text) Assessment: This is a 77F with PMH of HTN, PUD, MRSA of the right foot, HLD, hypothyroidism, bipolar disorder and chronic headache presenting to the ED for syncopal episode earlier today while at the [facility]. Plan: Syncopal episode -likely 2/2 from vasovagal episode -no electrolyte abnormalities appreciated -EKG on admission showed normal sinus at 83bpm with no ST changes, premature supraventricular complexes noted -troponin 0.01, repeat x2 -CXR did not show acute disease, follow up official report -CT head showed no acute finding, generalized parenchymal atrophy noted as demonstrated by symmetrical dilatation of ventricles and sulci, chronic periventricular and subcortical microvascular disease is seen. Follow up official report -carotid US pending -echo pending -cardiology on consult -neurology on consult -vitals signs q4, neurochecks -UDS pending, UA pending Hx of Hypothyroidism -continue home synthroid -TSH, T4 pending -A1c pending Hx of HLD -consider starting statin -lipid panel pending Hx of migraines -continue home fioricet Hx of HTN -continue lisinopril Hx of PUD -avoid gastro toxic agents Hx of Bipolar -continue clonidine, 0.1mg BID -need to verify dose, patient does not know at this time PPX with heparin and pepcid Heart healthy diet Patient seen and case discussed with attending, Dr. Barr <Mikhail Barr - Last Filed: 02/11/18 06:45> Results - Vital Signs Recent Vital Signs: Last Vital Signs Temp 98.6 F 02/11/18 01:08 Pulse 72 02/11/18 01:08 Resp 20 02/11/18 01:39 BP 139/93 H 02/11/18 01:08 Pulse Ox 96 02/11/18 01:08 - Labs Result Diagrams: 02/10/18 20:35 02/10/18 20:35 Labs: Laboratory Results - last 24 hr 02/10/18 02/10/18 02/10/18 20:35 20:35 20:35 WBC 8.7 RBC 4.06 Hgb 11.7 L Hct 36.5 MCV 89.9 MCH 28.8 MCHC 32.1 RDW 13.5 Plt Count 302 MPV 9.2 PT 11.2 INR 0.98 APTT 31.0 Sodium 139 Potassium 3.9 Chloride 105 Carbon Dioxide 26 Anion Gap 12 BUN 23 H Creatinine 0.8 Est GFR ( Amer) > 60 Est GFR (Non-Af Amer) > 60 Random Glucose 97 Calcium 9.4 Total Bilirubin 0.4 AST 36 D ALT 32 Alkaline Phosphatase 136 H D Lactate Dehydrogenase 639 Total Creatine Kinase 105 Troponin I < 0.01 Total Protein 7.3 Albumin 4.2 Globulin 3.1 Albumin/Globulin Ratio 1.3 Urine Color Urine Appearance Urine pH Ur Specific Champion Urine Protein Urine Glucose (UA) Urine Ketones Urine Blood Urine Nitrate Urine Bilirubin Urine Urobilinogen Ur Leukocyte Esterase Urine RBC Urine WBC Ur Epithelial Cells Urine Bacteria Urine Opiates Screen Urine Methadone Screen Ur Barbiturates Screen Ur Phencyclidine Scrn Ur Amphetamines Screen U Benzodiazepines Scrn U Oth Cocaine Metabols U Cannabinoids Screen 02/11/18 02/11/18 04:00 04:00 WBC RBC Hgb Hct MCV MCH MCHC RDW Plt Count MPV PT INR APTT Sodium Potassium Chloride Carbon Dioxide Anion Gap BUN Creatinine Est GFR ( Amer) Est GFR (Non-Af Amer) Random Glucose Calcium Total Bilirubin AST ALT Alkaline Phosphatase Lactate Dehydrogenase Total Creatine Kinase Troponin I Total Protein Albumin Globulin Albumin/Globulin Ratio Urine Color Straw Urine Appearance Clear Urine pH 6.0 Ur Specific Champion 1.010 Urine Protein Negative Urine Glucose (UA) Negative Urine Ketones Negative Urine Blood Negative Urine Nitrate Positive H Urine Bilirubin Negative Urine Urobilinogen 0.2 Ur Leukocyte Esterase Trace H Urine RBC 0 - 2 Urine WBC 0 - 2 Ur Epithelial Cells 0 - 2 Urine Bacteria Small Urine Opiates Screen Negative Urine Methadone Screen Negative Ur Barbiturates Screen Positive H Ur Phencyclidine Scrn Negative Ur Amphetamines Screen Negative U Benzodiazepines Scrn Negative U Oth Cocaine Metabols Negative U Cannabinoids Screen Negative Attending/Attestation - Attestation I have personally seen and examined this patient.: Yes I have fully participated in the care of the patient.: Yes I have reviewed all pertinent clinical information: Yes Notes (Text): 02/11/18 06:44 Patient was seen when she was in the ER. Medical record was reviewed. Agree with history,physical examination, assessment and plan.
[2018-02-11] MEDS ORDERED: Apap-Butalbital-Caffeine 325-50-40mg Tab PO PRN (00:40)
[2018-02-11] MEDS ORDERED: DiphenhydrAMINE 50 mg/ml Inj IVP ONE ×2 (01:59→02:47)
[2018-02-11 04:36] LABS: URINE BILIRUBIN NEGATIVE (NEGATIVE); URINE BLOOD NEGATIVE (NEGATIVE); URINE GLUCOSE (UA) NEGATIVE (NEGATIVE); URINE LEUKOCYTE ESTERASE TRACE Leu/uL (NEGATIVE); URINE PROTEIN NEGATIVE mg/dL (<30 mg/dL); URINE UROBILINOGEN 0.2 E.U./dL (<1 E.U./dL)
[2018-02-11 04:56] LABS: URINE APPEARANCE CLEAR (CLEAR); URINE COLOR STRAW (YELLOW)
[2018-02-11 05:00] LABS: BARBITURATES, UR POSITIVE (NEGATIVE); BENZODIAZEPINES, UR NEGATIVE (NEGATIVE); OPIATES, UR NEGATIVE (NEGATIVE); PHENCYCLIDINE, UR NEGATIVE (NEGATIVE)
--- NOTE | 2018-02-11 05:09 | CT ---
Date of service: 02/10/2018 PROCEDURE: CT HEAD WITHOUT CONTRAST. HISTORY: syncope COMPARISON: None available. TECHNIQUE: Axial computed tomography images were obtained through the head/brain without intravenous contrast. Radiation dose: Total exam DLP = 890.8 mGy-cm. This CT exam was performed using one or more of the following dose reduction techniques: Automated exposure control, adjustment of the mA and/or kV according to patient size, and/or use of iterative reconstruction technique. FINDINGS: HEMORRHAGE: No intracranial hemorrhage. BRAIN: There are mild chronic microangiopathic changes. There is no mass, mass effect or abnormal extra-axial fluid collection. There is no territorial infarction. The midline sagittal structures are normal.There are coarse atherosclerotic calcifications in the cavernous carotid arteries. VENTRICLES: There is mild age-related global parenchymal volume loss and proportionate enlargement of the ventricles and cortical sulci. CALVARIUM: There is no calvarial fracture or extracranial soft tissue swelling. PARANASAL SINUSES: Predominantly clear. MASTOID AIR CELLS: Predominantly clear. OTHER FINDINGS: None. IMPRESSION: No acute intracranial abnormality. Mild chronic microangiopathic changes and mild age-related global parenchymal volume loss. A preliminary report was provided by [employer].
[2018-02-11 05:29] LABS: URINE BACTERIA SMALL (NEG); URINE EPITHELIAL CELLS 0 - 2 /hpf (0-5); URINE RBC 0 - 2 /hpf (0-2); URINE WBC 0 - 2 /hpf (0-6)
--- NOTE | 2018-02-11 05:51 | RAD ---
Date of service: 02/10/2018 HISTORY: syncope COMPARISON: No prior. FINDINGS: LUNGS: The lungs are hyperinflated and there is peribronchial thickening with chronic changes in both lungs. PLEURA: No pleural effusions or pneumothorax. CARDIOVASCULAR: The heart is normal in size. Atherosclerotic aortic arch calcifications are present. OSSEOUS STRUCTURES: Within normal limits for the patient's age. VISUALIZED UPPER ABDOMEN: Normal. OTHER FINDINGS: None. IMPRESSION: No active pulmonary disease. COPD.
[2018-02-11] MEDS: Apap-Butalbital-Caffeine 325-50-40mg Tab PO PRN ×3 (06:19→18:11)
[2018-02-11] MEDS: Levothyroxine 125 MCG TAB PO SCH (06:19)
[2018-02-11 07:54] LABS: BASO # 0.02 K/mm3 (0.0-2.0); BASO % 0.3 % (0.0-3.0); EOS # 0.2 (0.0-0.7); EOS % 2.5 % (1.5-5.0); GRAN # 5.16 (1.4-6.5); HEMOGLOBIN 10.4 g/dL (12.0-16.0); LYMPH # 0.9 (1.2-3.4); LYMPH % 12.7 % (22.0-35.0); MEAN CELL VOLUME 88.7 fl (80.0-105.0); MEAN CORPUSCULAR HGB CONC 31.5 g/dl (31.0-37.0); MEAN PLATELET VOLUME 9.9 fl (7.0-11.0); MONO # 0.7 (0.1-0.6); MONO % 9.5 % (1.0-6.0); RBC 3.72 10^6/uL (3.5-6.1); RED CELL DISTRIBUTION WIDTH 13.4 % (11.5-14.5); WHITE BLOOD COUNT 6.9 10^3/uL (4.5-11.0)
[2018-02-11 08:35] LABS: LDL CHOLESTEROL 96 mg/dL (0-129); TROPONIN I < 0.01 ng/mL
[2018-02-11 08:48] LABS: T4 7.5 ug/dL (5.5-11.0)
[2018-02-11 08:49] LABS: ALB/GLOB RATIO 1.2 (1.1-1.8); ALBUMIN 3.4 g/dL (3.0-4.8); ALT/SGPT 29 U/L (7-56); AST/SGOT 28 U/L (14-36); BLOOD UREA NITROGEN 16 mg/dL (7-21); CALCIUM 8.9 mg/dL (8.4-10.5); GFR NON-AFRICAN AMERICAN > 60; HDL CHOLESTEROL 77 mg/dL (29-60)
[2018-02-11] MEDS ORDERED: RANITIDINE HCL 300 MG PO SCH (10:00)
[2018-02-11] MEDS ORDERED: LISINOPRIL PO SCH (10:00)
[2018-02-11] MEDS ORDERED: CLONIDINE PO SCH (10:00)
[2018-02-11] MEDS ORDERED: SYNTHROID 125 MCG PO SCH (10:00)
--- NOTE | 2018-02-11 10:30 | CARD ---
APPROVED REPORT Date of service: 02/10/2018 EKG Measurement Heart [id number] <Conclusion> Sinus rhythm Q in 3
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
[2018-02-11] MEDS ORDERED: DiphenhydrAMINE 50 mg/ml Inj IVP STA (17:26)
--- NOTE | 2018-02-11 19:49 | CP.PCM.CON ---
History of Present Illness - History of Present Illness History of Present Illness: Neurology consult dictated. Patient with chronic syncope and no s/s of stroke. Plan: 1. vestibular rehab and physical therapy Thank you Dr Malone neurology Past Patient History - Infectious Disease Hx of Infectious Diseases: None - Past Social History Smoking Status: Never Smoked - CARDIAC Hx Hypertension: Yes Hx Pacemaker: No Hx Peripheral Edema: Yes (chronic edema and redness) - PULMONARY Hx Pneumonia: Yes - NEUROLOGICAL Hx Migraine: Yes Hx Seizures: No - HEENT Hx HEENT Problems: No Hx Cataracts: No (denied) - RENAL Hx Chronic Kidney Disease: Yes - ENDOCRINE/METABOLIC Hx Hypothyroidism: Yes - HEMATOLOGICAL/ONCOLOGICAL Hx Cancer: Yes (skin above Lt eyebrow and Lt nose) - INTEGUMENTARY Hx Dermatological Problems: Yes Other/Comment: 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, skin cancer removed from L nose, 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 - MUSCULOSKELETAL/RHEUMATOLOGICAL Hx Arthritis: Yes Hx Falls: No Hx Fractures: Yes (L leg L ankle, L foot) - GASTROINTESTINAL Hx Gastritis: Yes - GENITOURINARY/GYNECOLOGICAL Hx Sexually Transmitted Disorders: No - PSYCHIATRIC Hx Anxiety: No (denied) Hx Bipolar Disorder: No (denied) Hx Substance Use: No - SURGICAL HISTORY Hx Appendectomy: Yes Hx Cholecystectomy: Yes - ANESTHESIA Hx Anesthesia: Yes Hx Anesthesia Reactions: No Hx Malignant Hyperthermia: No Meds Allergies/Adverse Reactions: Allergies Allergy/AdvReac Type Severity Reaction Status Date / Time oxycodone HCl [From Percocet] Allergy urticaria Verified 02/07/18 03:05 to "IV percocet" Sulfa (Sulfonamide Allergy SHORTNESS Verified 02/07/18 03:05 Antibiotics) OF BREATH aspirin AdvReac pt has Verified 02/07/18 03:05 ulcer ciprofloxacin AdvReac DIZZINESS Verified 02/11/18 12:33 doxycycline AdvReac DIZZINESS Verified 02/11/18 12:33 ibuprofen [From Motrin IB] AdvReac VOMITING Verified 02/10/18 20:04 naproxen AdvReac pt has Verified 02/07/18 03:05 ulcer - Medications Medications: Current Medications Acetaminophen/Butalbital/Caffeine (Fioricet) 1 tab PO Q6 PRN PRN Reason: Pain, moderate (4-7) Last Admin: 02/11/18 18:11 Dose: 1 tab Clonidine HCl (Catapres) 0.1 mg PO BID [facility] Last Admin: 02/11/18 17:00 Dose: 0.1 mg Famotidine (Pepcid) 10 mg PO 1000,2200 [facility] Last Admin: 02/11/18 10:59 Dose: 10 mg Heparin Sodium (Porcine) (Heparin) 5,000 units SC Q12 [facility]; Protocol Last Admin: 02/11/18 10:56 Dose: 5,000 units Levothyroxine Sodium (Synthroid) 125 mcg PO 0600 [facility] Last Admin: 02/11/18 06:19 Dose: 125 mcg Lisinopril (Zestril) 2.5 mg PO DAILY [facility] Last Admin: 02/11/18 11:03 Dose: 2.5 mg Results - Vital Signs Recent Vital Signs: Last Vital Signs Temp 98.6 F 02/11/18 17:05 Pulse 83 02/11/18 17:05 Resp 20 02/11/18 17:05 BP 135/88 02/11/18 17:05 Pulse Ox 97 02/11/18 17:05 - Labs Result Diagrams: 02/11/18 07:00 02/11/18 07:00 Labs: Laboratory Results - last 24 hr 02/10/18 02/10/18 02/10/18 20:35 20:35 20:35 WBC 8.7 RBC 4.06 Hgb 11.7 L Hct 36.5 MCV 89.9 MCH 28.8 MCHC 32.1 RDW 13.5 Plt Count 302 MPV 9.2 Gran % Lymph % (Auto) Mccracken % (Auto) Eos % (Auto) Baso % (Auto) Gran # Lymph # (Auto) Mccracken # (Auto) Eos # (Auto) Baso # (Auto) PT 11.2 INR 0.98 APTT 31.0 Sodium 139 Potassium 3.9 Chloride 105 Carbon Dioxide 26 Anion Gap 12 BUN 23 H Creatinine 0.8 Est GFR ( Amer) > 60 Est GFR (Non-Af Amer) > 60 Random Glucose 97 Hemoglobin A1c Calcium 9.4 Phosphorus Magnesium Total Bilirubin 0.4 AST 36 D ALT 32 Alkaline Phosphatase 136 H D Lactate Dehydrogenase 639 Total Creatine Kinase 105 Troponin I < 0.01 Total Protein 7.3 Albumin 4.2 Globulin 3.1 Albumin/Globulin Ratio 1.3 Triglycerides Cholesterol LDL Cholesterol Direct HDL Cholesterol Thyroxine (T4) TSH 3rd Generation Urine Color Urine Appearance Urine pH Ur Specific Vandiver Urine Protein Urine Glucose (UA) Urine Ketones Urine Blood Urine Nitrate Urine Bilirubin Urine Urobilinogen Ur Leukocyte Esterase Urine RBC Urine WBC Ur Epithelial Cells Urine Bacteria Urine Opiates Screen Urine Methadone Screen Ur Barbiturates Screen Ur Phencyclidine Scrn Ur Amphetamines Screen U Benzodiazepines Scrn U Oth Cocaine Metabols U Cannabinoids Screen 02/11/18 02/11/18 02/11/18 04:00 04:00 07:00 WBC 6.9 D RBC 3.72 Hgb 10.4 L Hct 33.0 L MCV 88.7 MCH 28.0 MCHC 31.5 RDW 13.4 Plt Count 281 MPV 9.9 Gran % 75.0 H Lymph % (Auto) 12.7 L Mccracken % (Auto) 9.5 H Eos % (Auto) 2.5 Baso % (Auto) 0.3 Gran # 5.16 Lymph # (Auto) 0.9 L Mccracken # (Auto) 0.7 H Eos # (Auto) 0.2 Baso # (Auto) 0.02 PT INR APTT Sodium Potassium Chloride Carbon Dioxide Anion Gap BUN Creatinine Est GFR ( Amer) Est GFR (Non-Af Amer) Random Glucose Hemoglobin A1c Calcium Phosphorus Magnesium Total Bilirubin AST ALT Alkaline Phosphatase Lactate Dehydrogenase Total Creatine Kinase Troponin I Total Protein Albumin Globulin Albumin/Globulin Ratio Triglycerides Cholesterol LDL Cholesterol Direct HDL Cholesterol Thyroxine (T4) TSH 3rd Generation Urine Color Straw Urine Appearance Clear Urine pH 6.0 Ur Specific Vandiver 1.010 Urine Protein Negative Urine Glucose (UA) Negative Urine Ketones Negative Urine Blood Negative Urine Nitrate Positive H Urine Bilirubin Negative Urine Urobilinogen 0.2 Ur Leukocyte Esterase Trace H Urine RBC 0 - 2 Urine WBC 0 - 2 Ur Epithelial Cells 0 - 2 Urine Bacteria Small Urine Opiates Screen Negative Urine Methadone Screen Negative Ur Barbiturates Screen Positive H Ur Phencyclidine Scrn Negative Ur Amphetamines Screen Negative U Benzodiazepines Scrn Negative U Oth Cocaine Metabols Negative U Cannabinoids Screen Negative 02/11/18 02/11/18 02/11/18 07:00 07:00 07:00 WBC RBC Hgb Hct MCV MCH MCHC RDW Plt Count MPV Gran % Lymph % (Auto) Mccracken % (Auto) Eos % (Auto) Baso % (Auto) Gran # Lymph # (Auto) Mccracken # (Auto) Eos # (Auto) Baso # (Auto) PT INR APTT Sodium 140 Potassium 3.8 Chloride 108 H Carbon Dioxide 26 Anion Gap 10 BUN 16 Creatinine 0.6 L Est GFR ( Amer) > 60 Est GFR (Non-Af Amer) > 60 Random Glucose 105 Hemoglobin A1c 6.0 Calcium 8.9 Phosphorus 3.6 Magnesium 1.8 Total Bilirubin 0.2 AST 28 ALT 29 Alkaline Phosphatase 104 Lactate Dehydrogenase Total Creatine Kinase Troponin I < 0.01 Total Protein 6.2 Albumin 3.4 Globulin 2.8 Albumin/Globulin Ratio 1.2 Triglycerides 65 Cholesterol 196 LDL Cholesterol Direct 96 HDL Cholesterol 77 H Thyroxine (T4) 7.5 TSH 3rd Generation 0.93 Urine Color Urine Appearance Urine pH Ur Specific Vandiver Urine Protein Urine Glucose (UA) Urine Ketones Urine Blood Urine Nitrate Urine Bilirubin Urine Urobilinogen Ur Leukocyte Esterase Urine RBC Urine WBC Ur Epithelial Cells Urine Bacteria Urine Opiates Screen Urine Methadone Screen Ur Barbiturates Screen Ur Phencyclidine Scrn Ur Amphetamines Screen U Benzodiazepines Scrn U Oth Cocaine Metabols U Cannabinoids Screen 02/11/18 12:00 WBC RBC Hgb Hct MCV MCH MCHC RDW Plt Count MPV Gran % Lymph % (Auto) Mccracken % (Auto) Eos % (Auto) Baso % (Auto) Gran # Lymph # (Auto) Mccracken # (Auto) Eos # (Auto) Baso # (Auto) PT INR APTT Sodium Potassium Chloride Carbon Dioxide Anion Gap BUN Creatinine Est GFR ( Amer) Est GFR (Non-Af Amer) Random Glucose Hemoglobin A1c Calcium Phosphorus Magnesium Total Bilirubin AST ALT Alkaline Phosphatase Lactate Dehydrogenase Total Creatine Kinase Troponin I < 0.01 Total Protein Albumin Globulin Albumin/Globulin Ratio Triglycerides Cholesterol LDL Cholesterol Direct HDL Cholesterol Thyroxine (T4) TSH 3rd Generation Urine Color Urine Appearance Urine pH Ur Specific Vandiver Urine Protein Urine Glucose (UA) Urine Ketones Urine Blood Urine Nitrate Urine Bilirubin Urine Urobilinogen Ur Leukocyte Esterase Urine RBC Urine WBC Ur Epithelial Cells Urine Bacteria Urine Opiates Screen Urine Methadone Screen Ur Barbiturates Screen Ur Phencyclidine Scrn Ur Amphetamines Screen U Benzodiazepines Scrn U Oth Cocaine Metabols U Cannabinoids Screen
[2018-02-12] MEDS: Apap-Butalbital-Caffeine 325-50-40mg Tab PO PRN ×4 (00:55→20:31)
[2018-02-12] MEDS ORDERED: DiphenhydrAMINE 50 mg/ml Inj IVP STA ×2 (03:07→22:31)
--- NOTE | 2018-02-12 03:35 | CP.PCM.PCO ---
Physician Communication Note - Physician Communication Note Physician Communication Note: Overnight Event: Addendum Addendum: 02/12/18 03:34 Resident was notified that patient was agitated and restless at night. Upon evaluation patient voicing numerous complaints ranging from headache, to itching, to insomnia, to preoccupation w/ blood pressure and labs. Labs and vitals were reviewed; Patient was reassured her lab signs and vitals were stable; and no acute intervention required at this time. Patient appeared to be anxious; hence offered ativan 1mg IVP; patient refused and said "thats a sedative I'm not taking that" Patient was requesting fioricet; she was told she had received a fioricet 2 hours prior to evaluation; She reported her itching was very bad and was offered 50mg Benadryl PO; she refused and wanted Benadryl 50mg IVP; patient was given 50mg IVP. Nurse reported patient urinates / defecates in a water pitcher despite offering commode or assistance to bathroom.
[2018-02-12] MEDS: Levothyroxine 125 MCG TAB PO SCH (05:34)
--- NOTE | 2018-02-12 07:38 | CP.PCM.PN ---
Subjective - Date & Time of Evaluation Date of Evaluation: 02/12/18 Time of Evaluation: 07:00 - Subjective Subjective: Stable on 3R. Still dizziness at times. o CP or SOB V/S noted. RSR. No orthostasis. PE: Lungs: clear Cor.: S1S2 Abd.: soft Ext.: no edema Neuro.: alert I/O= 1560/900 Labs noted. Trops X3 NL. Echo done. Will read.Prelim: Limited study. Nl. LV. See full report. Objective - Vital Signs/Intake and Output Vital Signs (last 24 hours): Temp Pulse Resp BP Pulse Ox 98.1 F 76 19 148/94 H 96 02/12/18 00:01 02/12/18 06:00 02/12/18 00:01 02/12/18 01:15 02/12/18 00:01 Intake and Output: 02/12/18 02/12/18 06:59 18:59 Intake Total 360 Output Total 900 Balance -540 - Medications Medications: Current Medications Acetaminophen/Butalbital/Caffeine (Fioricet) 1 tab PO Q6 PRN PRN Reason: Pain, moderate (4-7) Last Admin: 02/12/18 00:55 Dose: 1 tab Clonidine HCl (Catapres) 0.1 mg PO BID [facility] Last Admin: 02/11/18 17:00 Dose: 0.1 mg Famotidine (Pepcid) 10 mg PO 1000,2200 [facility] Last Admin: 02/11/18 22:32 Dose: 10 mg Heparin Sodium (Porcine) (Heparin) 5,000 units SC Q12 [facility]; Protocol Last Admin: 02/11/18 22:36 Dose: 5,000 units Levothyroxine Sodium (Synthroid) 125 mcg PO 0600 [facility] Last Admin: 02/12/18 05:34 Dose: 125 mcg Lisinopril (Zestril) 2.5 mg PO DAILY [facility] Last Admin: 02/11/18 11:03 Dose: 2.5 mg - Labs Labs: 02/11/18 07:00 02/11/18 07:00 PT 11.2 SECONDS (9.4-12.5) 02/10/18 20:35 INR 0.98 02/10/18 20:35 APTT 31.0 Seconds (25.1-36.5) 02/10/18 20:35 Assessment and Plan - Assessment and Plan (Free Text) Assessment: Syncope/Vasovagal episode Dizziness CASTRO HBP HLD Hypothyroidism Anxiety Psychiatric issues Plan: As per Neuro., Medical Team Carotid U/S pending. Consider Psych. Eval. No further cardiac testing at this time.
[2018-02-12 08:13] LABS: BASO # 0.02 K/mm3 (0.0-2.0); BASO % 0.3 % (0.0-3.0); EOS # 0.2 (0.0-0.7); EOS % 3.2 % (1.5-5.0); GRAN # 4.4 (1.4-6.5); GRAN % 67.1 % (50.0-68.0); HEMOGLOBIN 11.3 g/dL (12.0-16.0); LYMPH # 1.3 (1.2-3.4); LYMPH % 19.2 % (22.0-35.0); MEAN CELL VOLUME 88.7 fl (80.0-105.0); MEAN CORPUSCULAR HEMOGLOBIN 28.4 pg (25.0-35.0); MEAN PLATELET VOLUME 9.8 fl (7.0-11.0); MONO # 0.7 (0.1-0.6); MONO % 10.2 % (1.0-6.0); RBC 3.98 10^6/uL (3.5-6.1); RED CELL DISTRIBUTION WIDTH 13.4 % (11.5-14.5); WHITE BLOOD COUNT 6.6 10^3/uL (4.5-11.0)
[2018-02-12 08:28] LABS: ALB/GLOB RATIO 1.2 (1.1-1.8); ALBUMIN 3.4 g/dL (3.0-4.8); ALT/SGPT 26 U/L (7-56); AST/SGOT 27 U/L (14-36); BLOOD UREA NITROGEN 15 mg/dL (7-21); CALCIUM 8.8 mg/dL (8.4-10.5); GFR NON-AFRICAN AMERICAN > 60
--- NOTE | 2018-02-12 08:57 | CARD ---
APPROVED REPORT Date of service: 02/11/2018 EXAM: Two-dimensional and M-mode echocardiogram with Doppler and color Doppler. Other Information Quality : PoorRhythm : INDICATION SYNCOPE, DIZZINESS 2D DIMENSIONS IVSd0.9 (0.7-1.1cm)LVDd3.0 (3.9-5.9cm) PWd1.1 (0.7-1.1cm)LVDs2.2 (2.5-4.0cm) FS (%) 25.4 %LVEF (%)51.0 (>50%) M-Mode DIMENSIONS Aortic Root3.10 (2.2-3.7cm)Aortic Cusp Exc.1.80 (1.5-2.0cm) Aortic Valve AoV Peak Kkpjfzbx522.0cm/Jos Peak GR.25mmHg Mitral Valve MV E Vfcugnxb73.3cm/sMV A Hdxhdsgu152.0cm/sE/A ratio0.8 TDI Lateral E' Peak V8.38cm/sMedial E' Peak V5.17cm/sE/Lateral E'9.9 E/Medial E'16.1 Tricuspid Valve TR Peak [id number]/sRAP [id number] Peak Gr.24mmHg [id number] LEFT VENTRICLE The left ventricle is normal size. There is normal left ventricular wall thickness. The left ventricular function is normal. The left ventricular ejection fraction is within the normal range. There is normal LV segmental wall motion. RIGHT VENTRICLE The right ventricle is normal size. ATRIA The left atrium is mildly dilated. The right atrium size is normal. The interatrial septum is intact with no evidence for an atrial septal defect. AORTIC VALVE The aortic valve is not well visualized. The aortic valve is calcified and displays decreased opening. MITRAL VALVE The mitral valve is moderately thickened but opens well. Mitral annular calcification is severe. Mitral regurgitation is trace. TRICUSPID VALVE The tricuspid valve is normal in structure. There is trace to mild tricuspid regurgitation. PULMONIC VALVE The pulmonic valve is not well visualized. GREAT VESSELS The aortic root is normal in size. PERICARDIAL EFFUSION There is no pericardial effusion. <Conclusion> This is a very limited study. The AV was not adequately visualized. The left ventricle is normal size. There is normal left ventricular wall thickness. The left ventricular function is normal. The aortic valve is calcified and displays decreased opening. Degree of stenosis ca not be assessed. Mitral regurgitation is trace. There is trace to mild tricuspid regurgitation. Suggest repeat Doppler interrogation AV.
[2018-02-12 10:16] VITALS: RESP 20
[2018-02-12] MEDS ORDERED: ZANTAC PO SCH (11:00)
--- NOTE | 2018-02-12 13:23 | CP.PCM.PN ---
<Faustino Ball - Last Filed: 02/12/18 13:24> Subjective - Date & Time of Evaluation Date of Evaluation: 02/12/18 Time of Evaluation: 07:00 - Subjective Subjective: Pt reports feeling dizzy, headaches, and left leg cramps. Objective - Vital Signs/Intake and Output Vital Signs (last 24 hours): Temp Pulse Resp BP Pulse Ox 98.1 F 75 20 157/90 H 96 02/12/18 06:00 02/12/18 10:04 02/12/18 06:00 02/12/18 10:04 02/12/18 06:00 Intake and Output: 02/12/18 02/12/18 06:59 18:59 Intake Total 360 Output Total 900 Balance -540 - Medications Medications: Current Medications Acetaminophen/Butalbital/Caffeine (Fioricet) 1 tab PO Q6 PRN PRN Reason: Pain, moderate (4-7) Last Admin: 02/12/18 08:01 Dose: 1 tab Clonidine HCl (Catapres) 0.1 mg PO BID [facility] Last Admin: 02/12/18 10:04 Dose: 0.1 mg Heparin Sodium (Porcine) (Heparin) 5,000 units SC Q12 [facility]; Protocol Last Admin: 02/12/18 10:04 Dose: 5,000 units Home Med (Home Med) 1 unit PO DAILY [facility] Levothyroxine Sodium (Synthroid) 125 mcg PO 0600 [facility] Last Admin: 02/12/18 05:34 Dose: 125 mcg Lisinopril (Zestril) 2.5 mg PO DAILY [facility] Last Admin: 02/12/18 10:03 Dose: 2.5 mg - Labs Labs: 02/12/18 07:30 02/12/18 07:30 PT 11.2 SECONDS (9.4-12.5) 02/10/18 20:35 INR 0.98 02/10/18 20:35 APTT 31.0 Seconds (25.1-36.5) 02/10/18 20:35 - Constitutional Appears: Non-toxic, No Acute Distress - Head Exam Head Exam: ATRAUMATIC, NORMAL INSPECTION, NORMOCEPHALIC - Eye Exam Eye Exam: EOMI - ENT Exam ENT Exam: Mucous Membranes Moist - Neck Exam Neck Exam: Full ROM - Respiratory Exam Respiratory Exam: Clear to Ausculation Bilateral, NORMAL BREATHING PATTERN - Cardiovascular Exam Cardiovascular Exam: REGULAR RHYTHM, RRR, +S1, +S2 - GI/Abdominal Exam GI & Abdominal Exam: Soft, Normal Bowel Sounds - Extremities Exam Extremities Exam: Full ROM. absent: Pedal Edema - Neurological Exam Neurological Exam: Alert, Awake, Oriented x3 - Psychiatric Exam Psychiatric exam: Normal Affect, Normal Mood - Skin Skin Exam: Dry, Normal Color, Warm Assessment and Plan - Assessment and Plan (Free Text) Assessment: This is a 77F with PMH of HTN, PUD, MRSA of the right foot, HLD, hypothyroidism, bipolar disorder and chronic headache presenting to the ED for syncopal episode earlier today while at the [facility]. Plan: Syncopal episode -likely vasovagal episode -EKG on admission showed NSR -troponin negative x3 -CXR no acute disease -CT head showed no acute finding, generalized parenchymal atrophy noted as demonstrated by symmetrical dilatation of ventricles and sulci, chronic p eriventricular and subcortical microvascular disease is seen. -neurochecks -UDS positive for barbiturates, pt takes fioricet -UA nitrate positive, LE positive -carotid US: read pending -echo: EF 51%, aortic valve shows decreased opening -cardiology appreciate recs -neurology rec vestibular rehab and PT Hx of Hypothyroidism -synthroid -TSH 0.93 -T4 7.5 -HA1C 6.0 Hx of HLD -lipid panel: Trig 65, LDL 96, HDL 77 Hx of migraines -fioricet Hx of HTN -lisinopril Hx of PUD -avoid NSAIDS -continue zantac Hx of Bipolar -continue clonidine, 0.1mg BID Pt seen, examined, assessment and plan discussed with Dr Marga Ball PGY1 <Munir Gresham - Last Filed: 02/12/18 16:00> Objective - Vital Signs/Intake and Output Vital Signs (last 24 hours): Temp Pulse Resp BP Pulse Ox 98.1 F 75 20 157/90 H 96 02/12/18 06:00 02/12/18 10:04 02/12/18 06:00 02/12/18 10:04 02/12/18 06:00 Intake and Output: 02/12/18 02/12/18 06:59 18:59 Intake Total 360 Output Total 900 Balance -540 - Medications Medications: Current Medications Acetaminophen/Butalbital/Caffeine (Fioricet) 1 tab PO Q6 PRN PRN Reason: Pain, moderate (4-7) Last Admin: 02/12/18 14:27 Dose: 1 tab Clonidine HCl (Catapres) 0.1 mg PO BID [facility] Last Admin: 02/12/18 10:04 Dose: 0.1 mg Heparin Sodium (Porcine) (Heparin) 5,000 units SC Q12 [facility]; Protocol Last Admin: 02/12/18 10:04 Dose: 5,000 units Home Med (Home Med) 1 unit PO DAILY [facility] Levothyroxine Sodium (Synthroid) 125 mcg PO 0600 [facility] Last Admin: 02/12/18 05:34 Dose: 125 mcg Lisinopril (Zestril) 2.5 mg PO DAILY [facility] Last Admin: 02/12/18 10:03 Dose: 2.5 mg - Labs Labs: 02/12/18 07:30 02/12/18 07:30 PT 11.2 SECONDS (9.4-12.5) 02/10/18 20:35 INR 0.98 02/10/18 20:35 APTT 31.0 Seconds (25.1-36.5) 02/10/18 20:35 Attending/Attestation - Attestation I have personally seen and examined this patient.: Yes I have fully participated in the care of the patient.: Yes I have reviewed all pertinent clinical information, including history, physical exam and plan: Yes Notes (Text): 02/12/18 15:53 77 year old female with past medical history of hypertension, PUD, and hypothyroidism who presented with complaint of recurrent syncopal episodes. She states she has had extensive workup in recent hospitalizations. Neurology and cardiology are following. CT head was negative for acute findings. Orthostatic vitals negative. Will review echocardiogram and carotid dopplers. She continues to complain of multiple nonspecific complaints. Consider somatization vs seeking secondary gain (unclear if patient is currently homeless as she states she was recently in court with [facility]). Will need social sciences lecturer evaluation in AM. PT evaluation is requested in the mean time. Munir Gresham MD Hospitalist.
[2018-02-13] MEDS ORDERED: DiphenhydrAMINE 50 mg/ml Inj IVP ONE (00:55)
[2018-02-13] MEDS: Apap-Butalbital-Caffeine 325-50-40mg Tab PO PRN ×4 (02:18→22:00)
[2018-02-13] MEDS: Levothyroxine 125 MCG TAB PO SCH (06:23)
[2018-02-13] MEDS ORDERED: DiphenhydrAMINE 50 mg/ml Inj IVP STA (06:38)
[2018-02-13 07:12] LABS: BASO # 0.02 K/mm3 (0.0-2.0); BASO % 0.3 % (0.0-3.0); EOS # 0.2 (0.0-0.7); EOS % 3.1 % (1.5-5.0); GRAN # 4.5 (1.4-6.5); GRAN % 65.8 % (50.0-68.0); HEMOGLOBIN 12.5 g/dL (12.0-16.0); LYMPH # 1.4 (1.2-3.4); LYMPH % 20.3 % (22.0-35.0); MEAN CELL VOLUME 88.7 fl (80.0-105.0); MEAN CORPUSCULAR HEMOGLOBIN 28.8 pg (25.0-35.0); MEAN CORPUSCULAR HGB CONC 32.5 g/dl (31.0-37.0); MEAN PLATELET VOLUME 10.2 fl (7.0-11.0); MONO # 0.7 (0.1-0.6); MONO % 10.5 % (1.0-6.0); RBC 4.34 10^6/uL (3.5-6.1); RED CELL DISTRIBUTION WIDTH 13.4 % (11.5-14.5); WHITE BLOOD COUNT 6.8 10^3/uL (4.5-11.0)
--- NOTE | 2018-02-13 08:47 | CON ---
DATE: 02/11/2018 NEUROLOGY CONSULT This neurology consult called by Dr. Gresham. HISTORY OF PRESENT ILLNESS: This is a 77-year-old woman with past medical history of hypertension, PUD, hyperlipidemia, hypothyroidism, bipolar disorder, and chronic headache, migrainous type. She presented to emergency room for a syncopal spell . Patient states that she has been under lot of stress because she has been feeling her during this time because she did not eat any food, drink any water, or take any medication. As noted, she has chronic migraines for many years, which occurs approximately 7 to 8 times a year and controlled by Imitrex. She denied migraine at this time. She suddenly felt very dizzy and became diaphoretic and lost consciousness. There were some palpitations before. There is no . There is no confusional episode after she woke up. Recently she had a similar admission in [facility]. Patient appears as well. REVIEW OF SYSTEMS: Negative for all 12 points. PAST MEDICAL HISTORY: As above. PAST SURGICAL HISTORY: Appendectomy, gallbladder removal, . SOCIAL HISTORY: There is no tobacco, alcohol, or IVDA. Living condition is not known presently. FAMILY HISTORY: Father had nephrolithiasis. ALLERGIES: OXYCODONE, SULFA, ASPIRIN, NAPROXEN. PHYSICAL EXAMINATION: GENERAL: The patient is completely normal. NEUROLOGICAL: She is quite talkative with mini mental status of 30/30.. LABORATORY DATA: White count 6.9, hemoglobin 10.4, hematocrit 33.3. Chemistry is normal except for HDL which is 77, triglycerides and cholesterol are normal as well. Urine is normal as well. Toxicology is positive for barbiturate. CT scan was done, which is normal. Carotid artery ultrasound was done, which is pending. Echocardiogram was done, which is pending. IMPRESSION: This is a 77-year-old woman with syncopal episodes that are chronic in nature. I would recommend obtaining results of carotid artery Doppler and echocardiogram. Patient did not appear to have stroke. There are no cerebellar signs or vertebrobasilar sign. At this time, Neurology will sign off. Please see in consult p.r.n. Thank you for this interesting consult. Sarah Beth Malone MD
[2018-02-13 08:56] LABS: BLOOD UREA NITROGEN 19 mg/dL (7-21); GFR NON-AFRICAN AMERICAN > 60
[2018-02-13 08:57] LABS: ALB/GLOB RATIO 1.2 (1.1-1.8); ALBUMIN 3.7 g/dL (3.0-4.8); ALT/SGPT 24 U/L (7-56); AST/SGOT 32 U/L (14-36)
[2018-02-13] MEDS: ZANTAC PO SCH (09:27)
--- NOTE | 2018-02-13 10:59 | US ---
PROCEDURE: Bilateral carotid artery duplex ultrasound HISTORY: Carotid stenosis PHYSICIAN(S): Pankaj Decker MD. TECHNIQUE: Duplex sonography and color-flow Doppler were used to evaluate the carotid bifurcations and limited segments of the vertebral arteries bilaterally. The exam is limited by tortuous vessels FINDINGS: There is mild smooth echogenic plaque noted at the carotid bifurcations bilaterally. The peak systolic velocity in the proximal right internal carotid artery is 79 cm/sec. This corresponds to a 20 to 39% proximal right ICA stenosis. Normal systolic velocities are noted in the proximal right external carotid artery. There is antegrade flow in the right vertebral artery. The peak systolic velocity in the proximal left internal carotid artery is 74 cm/sec. This corresponds to a 20 to 39% proximal left ICA stenosis. Normal systolic velocities are noted in the proximal left external carotid artery. There is antegrade flow in the dominant left vertebral artery. IMPRESSION: 1. Bilateral 20-39% proximal ICA stenoses. 2. Antegrade flow in both vertebral arteries. 3. Tortuous vessels
--- NOTE | 2018-02-13 19:24 | CP.PCM.PN ---
<Faustino Ball - Last Filed: 02/13/18 19:39> Subjective - Date & Time of Evaluation Date of Evaluation: 02/13/18 Time of Evaluation: 07:00 - Subjective Subjective: Pt seen, examined. Pt reports headache, denies chest pain or sob Objective - Vital Signs/Intake and Output Vital Signs (last 24 hours): Temp Pulse Resp BP Pulse Ox 98.6 F 89 20 124/76 95 02/13/18 17:37 02/13/18 17:41 02/13/18 17:37 02/13/18 17:41 02/13/18 17:37 Intake and Output: 02/13/18 02/14/18 18:59 06:59 Intake Total 1280 Output Total 1280 Balance 0 - Medications Medications: Current Medications Acetaminophen/Butalbital/Caffeine (Fioricet) 1 tab PO Q6 PRN PRN Reason: Pain, moderate (4-7) Last Admin: 02/13/18 14:45 Dose: 1 tab Clonidine HCl (Catapres) 0.1 mg PO BID [facility] Last Admin: 02/13/18 17:41 Dose: 0.1 mg Heparin Sodium (Porcine) (Heparin) 5,000 units SC Q12 [facility]; Protocol Last Admin: 02/13/18 12:13 Dose: 5,000 units Home Med (Home Med) 1 unit PO DAILY [facility] Last Admin: 02/13/18 09:27 Dose: 1 unit Levothyroxine Sodium (Synthroid) 125 mcg PO 0600 [facility] Last Admin: 02/13/18 06:23 Dose: 125 mcg Lisinopril (Zestril) 2.5 mg PO DAILY [facility] Last Admin: 02/13/18 09:25 Dose: 2.5 mg Loratadine (Claritin) 10 mg PO DAILY [facility] Last Admin: 02/13/18 13:35 Dose: 10 mg - Labs Labs: 02/13/18 06:45 02/13/18 06:45 PT 11.2 SECONDS (9.4-12.5) 02/10/18 20:35 INR 0.98 02/10/18 20:35 APTT 31.0 Seconds (25.1-36.5) 02/10/18 20:35 - Constitutional Appears: Non-toxic, No Acute Distress - Head Exam Head Exam: ATRAUMATIC, NORMAL INSPECTION, NORMOCEPHALIC - Eye Exam Eye Exam: EOMI - ENT Exam ENT Exam: Mucous Membranes Moist - Neck Exam Neck Exam: Full ROM - Respiratory Exam Respiratory Exam: NORMAL BREATHING PATTERN. absent: Accessory Muscle Use, Wheezes - Cardiovascular Exam Cardiovascular Exam: RRR, +S1, +S2. absent: Diastolic murmur, Murmur - GI/Abdominal Exam GI & Abdominal Exam: Soft, Normal Bowel Sounds - Extremities Exam Extremities Exam: Full ROM - Neurological Exam Neurological Exam: Alert, Awake - Psychiatric Exam Psychiatric exam: Normal Affect, Normal Mood - Skin Skin Exam: Intact, Warm Assessment and Plan - Assessment and Plan (Free Text) Assessment: This is a 77 yo female with PMH of HTN, PUD, MRSA of the right foot, HLD, hypothyroidism, bipolar disorder and chronic headache presenting to the ED for syncopal episode earlier today while at the [facility]. Plan: Syncopal episode - likely vasovagal episode, likely not cardiac or neurologic in nature - EKG on admission showed NSR - troponin negative x3 - CXR no acute disease - CT head showed no acute finding, generalized parenchymal atrophy noted as demo nstrated by symmetrical dilatation of ventricles and sulci, chronic periventricular and subcortical microvascular disease is seen. - neurochecks - UDS positive for barbiturates, pt takes fioricet - UA nitrate positive, LE positive - carotid US: bilateral 20-39% proximal ICA stenosis, tortuous vessels - ECHO: EF 51%, aortic valve shows decreased opening - Cardio rec no further work up needed - neurology rec vestibular rehab and PT - PT rec TRCU for rehab due to deconditioning. TRCU eval pending. Generalized nonspecific Pruitis - Loratadine 10mg daily Hx of Hypothyroidism - synthroid - TSH 0.93 - T4 7.5 Hx of HLD -lipid panel: Trig 65, LDL 96, HDL 77 Hx of migraines - continue fioricet Hx of HTN - continue lisinopril Hx of PUD - avoid NSAIDS - continue zantac Hx of Bipolar - continue clonidine, 0.1mg BID - psych consulted Ppx - heparin Pt seen, examined, assessment and plan discussed with Dr Jannet Ball PGY1 <Aye Power - Last Filed: 02/14/18 17:22> Objective - Vital Signs/Intake and Output Vital Signs (last 24 hours): Temp Pulse Resp BP Pulse Ox 98.1 F 86 20 124/97 H 97 02/14/18 06:00 02/14/18 10:27 02/14/18 06:00 02/14/18 10:27 02/14/18 06:00 - Medications Medications: Current Medications Acetaminophen/Butalbital/Caffeine (Fioricet) 1 tab PO Q6 PRN PRN Reason: Pain, moderate (4-7) Last Admin: 02/14/18 14:25 Dose: 1 tab Clonidine HCl (Catapres) 0.1 mg PO BID [facility] Last Admin: 02/14/18 10:24 Dose: 0.1 mg Heparin Sodium (Porcine) (Heparin) 5,000 units SC Q12 [facility]; Protocol Last Admin: 02/14/18 10:27 Dose: 5,000 units Home Med (Home Med) 1 unit PO DAILY [facility] Last Admin: 02/14/18 14:21 Dose: 1 unit Levothyroxine Sodium (Synthroid) 125 mcg PO 0600 [facility] Last Admin: 02/14/18 06:02 Dose: 125 mcg Lisinopril (Zestril) 2.5 mg PO DAILY [facility] Last Admin: 02/14/18 10:27 Dose: 2.5 mg Lisinopril (Zestril) 10 mg PO DAILY [facility] Loratadine (Claritin) 10 mg PO DAILY [facility] Last Admin: 02/14/18 10:27 Dose: 10 mg - Labs Labs: 02/14/18 07:20 02/14/18 07:20 PT 11.2 SECONDS (9.4-12.5) 02/10/18 20:35 INR 0.98 02/10/18 20:35 APTT 31.0 Seconds (25.1-36.5) 02/10/18 20:35 Attending/Attestation - Attestation I have personally seen and examined this patient.: Yes I have fully participated in the care of the patient.: Yes I have reviewed all pertinent clinical information, including history, physical exam and plan: Yes Notes (Text): 02/14/18 17:22 Medical record note made by the resident after discussion with my direction and input after the patient was personally seen and examined by me. I have reviewed the chart and agree that the record accurately reflects by personal performance of the history, physical exam, data review, and medical decision-making, in the course for the patient. I have also personally directed the plan of care.
[2018-02-14] MEDS ORDERED: DiphenhydrAMINE 50 mg/ml Inj IVP ONE (06:00)
[2018-02-14] MEDS: Apap-Butalbital-Caffeine 325-50-40mg Tab PO PRN ×3 (06:01→21:54)
[2018-02-14] MEDS: Levothyroxine 125 MCG TAB PO SCH (06:02)
[2018-02-14 07:46] LABS: BASO # 0.01 K/mm3 (0.0-2.0); BASO % 0.2 % (0.0-3.0); EOS # 0.2 (0.0-0.7); GRAN # 4.4 (1.4-6.5); GRAN % 69.7 % (50.0-68.0); LYMPH # 1.1 (1.2-3.4); LYMPH % 17.9 % (22.0-35.0); MEAN CELL VOLUME 88.3 fl (80.0-105.0); MEAN CORPUSCULAR HEMOGLOBIN 28.2 pg (25.0-35.0); MEAN CORPUSCULAR HGB CONC 31.9 g/dl (31.0-37.0); MEAN PLATELET VOLUME 9.7 fl (7.0-11.0); MONO # 0.6 (0.1-0.6); MONO % 9.2 % (1.0-6.0); RBC 4.26 10^6/uL (3.5-6.1); RED CELL DISTRIBUTION WIDTH 13.5 % (11.5-14.5); WHITE BLOOD COUNT 6.3 10^3/uL (4.5-11.0)
[2018-02-14 08:10] LABS: ALB/GLOB RATIO 1.3 (1.1-1.8); ALBUMIN 3.9 g/dL (3.0-4.8); ALT/SGPT 31 U/L (7-56); AST/SGOT 32 U/L (14-36); BLOOD UREA NITROGEN 18 mg/dL (7-21); CALCIUM 9.2 mg/dL (8.4-10.5); GFR NON-AFRICAN AMERICAN > 60
[2018-02-14] MEDS: ZANTAC PO SCH (14:21)
--- NOTE | 2018-02-14 20:36 | CP.PCM.PN ---
<QuinnBelaFaustino Ramiro - Last Filed: 02/14/18 20:38> Subjective - Date & Time of Evaluation Date of Evaluation: 02/14/18 Time of Evaluation: 06:15 - Subjective Subjective: Pt seen and examined. Pt reports headache. NO other complaints at this time. Objective - Vital Signs/Intake and Output Vital Signs (last 24 hours): Temp Pulse Resp BP Pulse Ox 98.1 F 92 H 20 130/96 H 93 L 02/14/18 14:00 02/14/18 18:33 02/14/18 14:00 02/14/18 18:33 02/14/18 14:00 - Medications Medications: Current Medications Acetaminophen/Butalbital/Caffeine (Fioricet) 1 tab PO Q6 PRN PRN Reason: Pain, moderate (4-7) Last Admin: 02/14/18 14:25 Dose: 1 tab Clonidine HCl (Catapres) 0.1 mg PO BID [facility] Last Admin: 02/14/18 18:33 Dose: 0.1 mg Heparin Sodium (Porcine) (Heparin) 5,000 units SC Q12 [facility]; Protocol Last Admin: 02/14/18 10:27 Dose: 5,000 units Home Med (Home Med) 1 unit PO DAILY [facility] Last Admin: 02/14/18 14:21 Dose: 1 unit Levothyroxine Sodium (Synthroid) 125 mcg PO 0600 [facility] Last Admin: 02/14/18 06:02 Dose: 125 mcg Lisinopril (Zestril) 2.5 mg PO DAILY [facility] Last Admin: 02/14/18 10:27 Dose: 2.5 mg Lisinopril (Zestril) 10 mg PO DAILY [facility] Loratadine (Claritin) 10 mg PO DAILY [facility] Last Admin: 02/14/18 10:27 Dose: 10 mg - Labs Labs: 02/14/18 07:20 02/14/18 07:20 PT 11.2 SECONDS (9.4-12.5) 02/10/18 20:35 INR 0.98 02/10/18 20:35 APTT 31.0 Seconds (25.1-36.5) 02/10/18 20:35 - Constitutional Appears: No Acute Distress - Head Exam Head Exam: NORMAL INSPECTION, NORMOCEPHALIC - Eye Exam Eye Exam: EOMI, Normal appearance. absent: Scleral icterus - ENT Exam ENT Exam: Mucous Membranes Moist - Neck Exam Neck Exam: Full ROM, Normal Inspection - Respiratory Exam Respiratory Exam: Clear to Ausculation Bilateral, NORMAL BREATHING PATTERN. absent: Rales, Rhonchi, Wheezes - Cardiovascular Exam Cardiovascular Exam: RRR, +S1, +S2. absent: Murmur - GI/Abdominal Exam GI & Abdominal Exam: Normal Bowel Sounds. absent: Tenderness - Extremities Exam Extremities Exam: Full ROM, Normal Capillary Refill. absent: Calf Tenderness, Pedal Edema - Neurological Exam Neurological Exam: Alert, Awake - Skin Skin Exam: Dry, Warm. absent: Rash Assessment and Plan - Assessment and Plan (Free Text) Assessment: This is a 77 yo female with PMH of HTN, PUD, MRSA of the right foot, HLD, hypothyroidism, bipolar disorder and chronic headache presenting to the ED for syncopal episode on 02/10 while at the [facility]. Plan: Plan: Syncopal episode - likely vasovagal episode - cardiac etiology ruled out: EKG NSR, CXR negative, negative trops, ECho 51%, carotid US showed bilateral 20-39% stenosis - neuro etiology ruled out: CT showed no acute findings with some chronic generalyzed parenchymal atrophy - UDS positive for barbiturates, pt takes fioricet - UA nitrate positive, LE positive - Cardio rec no further work up needed - neurology rec vestibular rehab and PT, Neurology signed off - PT rec TRCU for rehab due to deconditioning. TRCU eval pending. - Psych consulted Generalized nonspecific Pruitis - Loratadine 10mg daily - avoid IV benadryl Hx of Hypothyroidism - synthroid - TSH 0.93 - T4 7.5 Hx of HLD -lipid panel: Trig 65, LDL 96, HDL 77 Hx of migraines - continue fioricet Hx of HTN - BP 150/60 - increase lisinopril to 10mg daily - continue clonidine Hx of PUD - avoid NSAIDS - continue zantac Hx of Bipolar - psych consulted Ppx - heparin Pt seen, examined, assessment and plan discussed with Dr Jannet Ball PGY1 <Aye Power - Last Filed: 02/16/18 15:25> Objective - Vital Signs/Intake and Output Vital Signs (last 24 hours): Temp Pulse Resp BP Pulse Ox 97.5 F L 93 H 20 125/79 99 02/15/18 14:00 02/15/18 14:00 02/15/18 14:00 02/15/18 14:00 02/15/18 14:00 - Labs Labs: 02/15/18 07:00 02/15/18 07:00 PT 11.2 SECONDS (9.4-12.5) 02/10/18 20:35 INR 0.98 02/10/18 20:35 APTT 31.0 Seconds (25.1-36.5) 02/10/18 20:35 Attending/Attestation - Attestation I have personally seen and examined this patient.: Yes I have fully participated in the care of the patient.: Yes I have reviewed all pertinent clinical information, including history, physical exam and plan: Yes Notes (Text): 02/16/18 15:25 Medical record note made by the resident after discussion with my direction and input after the patient was personally seen and examined by me. I have reviewed the chart and agree that the record accurately reflects by personal performance of the history, physical exam, data review, and medical decision-making, in the course for the patient. I have also personally directed the plan of care.
--- NOTE | 2018-02-14 21:35 | CON ---
DATE OF CONSULTATION: 02/14/2018 HISTORY OF PRESENT ILLNESS: The patient is a 77-year-old female with questionable history of bipolar disorder. The patient denied history of psychiatric admissions in the past. The patient was admitted to the medical site status post syncopal episode. Psych consult was called because the patient has history of questionable bipolar disorder and presented to be talkative and possibly hypomanic. The patient was seen and examined today. The patient presented in good spirits. The patient is very talkative and agree with medical team. The patient said that she has a lot of issues going on in her apartment. The patient was talking about the landlord and [place]'s apartment. The patient reported that she does not feel depressed. The patient denied that she wants to hurt herself or others. The patient does not present to be psychotic. Speech was mildly overproductive and thought process was over inclusive, but at the same time the patient does not present to be manic, mostly hypomanic. The patient reported that she sleeps fine. She denied hearing voices, denied seeing things, denied paranoid ideation. This communications writer reviewed previous history. The patient was evaluated by Dr. Hagen in 10/2017. The patient presented the same way as she is right now. The patient was presenting emotionally labile and had pressured speech, but could not be considered to be in mental status where she can be treated against her wishes. The patient presented the same way today. The patient does not want to have any psychiatric services, does not want to be on any psychotropic medications. This communications writer reviewed vital signs. Vital signs seem to be stable. Temperature 98.1, pulse is 86, blood pressure 124/97, respiration 26 and saturation is 97. MEDICATIONS: Reviewed. The patient is on Fioricet, Catapres, heparin, Synthroid, Zestril and Claritin. LABS: Reviewed. Most recent was from today. Chemistry reviewed. Urinalysis, leukocyte esterase trace and nitrite positive. Toxicology, barbiturate positive. MENTAL STATUS EXAMINATION: As this communications writer described above. The patient presented to be talkative, overproductive speech, but not pressured. Mood described as fine. Affect was labile. Thought process circumstantial. Thought content, the patient denied visual, auditory, tactile hallucinations. Denied paranoid ideation. The patient denied thoughts of harming herself or others. Denied intent or plan. Insight and judgment seem to be improving. Impulses are well controlled. IMPRESSION: As per history, questionable history of bipolar disorder, rule out normal ageing versus early stage of dementia. The patient had a CT scan, which showed no acute intracranial abnormality, mild chronic microangiopathic changes, and mild age-related global parenchymal volume loss. PLAN: The patient deferred any psychiatric services. The patient does not want to take any psychotropic medications. The patient does not want to be seen by psychiatrist. We will respect that wish. As per nursing staff, the patient does not exhibit any aggressive or agitated behavior. The patient is compliant with the treatment and offered treatment plan. Meanwhile, the patient posed no imminent danger to self or others. This communications writer will sign off. Should you have any questions, give me a call back. Earlene Escalona MD
[2018-02-15] MEDS: Apap-Butalbital-Caffeine 325-50-40mg Tab PO PRN ×2 (03:44→10:28)
[2018-02-15] MEDS ORDERED: DiphenhydrAMINE 50 mg/ml Inj IVP STA (04:27)
[2018-02-15] MEDS: Levothyroxine 125 MCG TAB PO SCH (06:49)
[2018-02-15 07:42] LABS: BASO # 0.02 K/mm3 (0.0-2.0); BASO % 0.3 % (0.0-3.0); EOS # 0.2 (0.0-0.7); EOS % 3.3 % (1.5-5.0); GRAN # 4.08 (1.4-6.5); GRAN % 66.3 % (50.0-68.0); HEMOGLOBIN 12.1 g/dL (12.0-16.0); LYMPH # 1.3 (1.2-3.4); LYMPH % 20.3 % (22.0-35.0); MEAN CELL VOLUME 88.2 fl (80.0-105.0); MEAN CORPUSCULAR HEMOGLOBIN 28.5 pg (25.0-35.0); MEAN CORPUSCULAR HGB CONC 32.4 g/dl (31.0-37.0); MEAN PLATELET VOLUME 9.7 fl (7.0-11.0); MONO # 0.6 (0.1-0.6); MONO % 9.8 % (1.0-6.0); RBC 4.24 10^6/uL (3.5-6.1); RED CELL DISTRIBUTION WIDTH 13.4 % (11.5-14.5); WHITE BLOOD COUNT 6.2 10^3/uL (4.5-11.0)
[2018-02-15 07:56] LABS: ALB/GLOB RATIO 1.3 (1.1-1.8); ALBUMIN 3.8 g/dL (3.0-4.8); ALT/SGPT 27 U/L (7-56); AST/SGOT 24 U/L (14-36); BLOOD UREA NITROGEN 19 mg/dL (7-21); GFR NON-AFRICAN AMERICAN > 60
[2018-02-15] MEDS: ZANTAC PO SCH (10:29)
[2018-02-15 16:59] VITALS: BP 125/79; PULSE 93; TEMP 97.5; O2SAT 99
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
== END 2018-02-15 18:31 | DRG 312 ==
LOC: ED 19:38 → ERH 23:43 → 3RSO 02-11 01:26 → OBSVTOIN 02-12 16:07 → 5RSO 02-13 22:34
PROVIDERS: ADMIT Internal Medicine; ATTEND Internal Medicine
DX: R55 Syncope and collapse (principal); E89.0 Postprocedural hypothyroidism; F31.9 Bipolar disorder, unspecified; F41.9 Anxiety disorder, unspecified; I10 Essential (primary) hypertension; L29.9 Pruritus, unspecified; G43.909 Migraine, unspecified, not intractable, without status migrainosus; E78.5 Hyperlipidemia, unspecified; K27.9 Peptic ulcer, site unspecified, unspecified as acute or chronic, without hemorrhage or perforation; G47.00 Insomnia, unspecified; Z85.828 Personal history of other malignant neoplasm of skin

== ENCOUNTER 2018-06-23 06:29 | Emergency (ER) | payer MEDICARE, MEDICAID ==
[2018-06-23 06:59] VITALS: BMI 18.5
--- NOTE | 2018-06-23 07:36 | ED PDOC ---
Arrival/HPI - General Chief Complaint: Cough, Cold, Congestion Time Seen by Provider: 06/23/18 07:14 Historian: Patient - History of Present Illness Narrative History of Present Illness (Text): 06/23/18 07:34 78 year old female, whose past medical history includes hypertension, PUD, MRSA of the right foot, HLD, hypothyroidism, bipolar disorder and chronic headache, presents to the emergency department complaining of productive cough for the past 2 weeks. Patient was seen and evaluated by her PMD 2 weeks ago which she reportedly states she was diagnosed with strep throat. Patient was given antibiotics which she states she had an allergic reaction to and had to stop taking them. Patient was then reportedly discharged from [place] recently after being treated for pneumonia as well as [facility]. Patient refuses to give deta ils on why she is seeking medical attention today. Patient constantly talks about pervious admissions to hospitals at multiple other facilities. Patient also reports she passed out yesterday while she was sitting and reports dizziness and nausea, but denies any fever, chills, chest pain, shortness of breath, vomiting, diarrhea, urinary symptoms, back pain, neck pain, headache, or any other complaints. PMD: Dr. Sanchez Time/Duration: Other (2 weeks) Symptom Onset: Gradual Symptom Course: Unchanged Activities at Onset: Light Context: Home Past Medical History - Provider Review Nursing Documentation Reviewed: Yes - Infectious Disease Hx of Infectious Diseases: None - Cardiac Hx Cardiac Disorders: Yes Hx Hypertension: Yes - Pulmonary Hx Respiratory Disorders: Yes Hx Pneumonia: Yes - Neurological Hx Neurological Disorder: Yes Hx Migraine: Yes Hx Seizures: No Hx Syncope: Yes - HEENT Hx HEENT Disorder: No Hx Cataracts: No - Renal Hx Renal Disorder: Yes - Endocrine/Metabolic Hx Endocrine Disorders: Yes Hx Hypothyroidism: Yes - Hematological/Oncological Hx Blood Disorders: Yes Hx Cancer: Yes (skin) - Integumentary Hx Dermatological Disorder: Yes Other/Comment: 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, skin cancer removed from L nose - Musculoskeletal/Rheumatological Hx Musculoskeletal Disorders: Yes Hx Arthritis: Yes - Gastrointestinal Hx Gastritis: Yes Hx Gastrointestinal Ulcer: Yes - Genitourinary/Gynecological Hx Sexually Transmitted Diseases: No - Psychiatric Hx Psychophysiologic Disorder: No (denied) Hx Anxiety: No (denied) Hx Bipolar Disorder: No (denied) Hx Substance Use: No - Surgical History Hx Thyroidectomy: Yes (secondary to benign tumor) - Anesthesia Hx Anesthesia: Yes Hx Anesthesia Reactions: No Hx Malignant Hyperthermia: No - Suicidal Assessment Feels Threatened In Home Enviroment: No Family/Social History - Physician Review Nursing Documentation Reviewed: Yes Family/Social History: No Known Family HX Smoking Status: Never Smoked Hx Alcohol Use: No Hx Substance Use: No Hx Substance Use Treatment: No Allergies/Home Meds Allergies/Adverse Reactions: Allergies oxycodone HCl [From Percocet] Allergy (Verified 02/07/18 03:05) urticaria to "IV percocet" Sulfa (Sulfonamide Antibiotics) Allergy (Verified 02/07/18 03:05) SHORTNESS OF BREATH aspirin Adverse Reaction (Verified 02/07/18 03:05) pt has ulcer ciprofloxacin Adverse Reaction (Verified 02/11/18 12:33) DIZZINESS doxycycline Adverse Reaction (Verified 02/11/18 12:33) DIZZINESS ibuprofen [From Motrin IB] Adverse Reaction (Verified 02/10/18 20:04) VOMITING naproxen Adverse Reaction (Verified 02/07/18 03:05) pt has ulcer Home Medications: Home Meds Medication Instructions Recorded Confirmed Synthroid 125 mcg PO DAILY 02/07/18 02/10/18 Ranitidine HCl [Zantac 75] 300 mg PO DAILY 02/10/18 02/12/18 Multivitamin [Daily Mónica] 1 tab PO DAILY 02/11/18 02/14/18 Naloxegol Oxalate [Movantik] 25 mg PO DAILY 02/11/18 02/14/18 Omeprazole 40 mg PO DAILY 02/11/18 02/14/18 Review of Systems - Physician Review All systems were reviewed & negative as marked: Yes - Review of Systems Constitutional: absent: Fevers, Other (chills) Respiratory: Cough. absent: SOB Cardiovascular: absent: Chest Pain Gastrointestinal: Nausea. absent: Diarrhea, Vomiting Genitourinary Female: absent: Dysuria, Frequency, Hematuria Musculoskeletal: absent: Back Pain, Neck Pain Neurological: Dizziness, Other ("passed out"). absent: Headache Physical Exam - Physical Exam Narrative Physical Exam (Text): Gen: VS reviewed, alert, well developed, well nourished, nontoxic, mild distress. ENT: normal pharynx. Eye: EOMI, PERRL. Neck: no JVD, supple, no adenopathy. CV: regular rate, regular rhythm, no rubs, no murmur, no gallops, S1, S2, pulses equal and strong. Pulm: no distress, clear to auscultation, no wheeze, no rhonchi, breath sounds equal, no rales. Abd: soft, nontender, no guarding, no rebound, no rigidity, normal bowel sounds. Ext: no edema. Skin: good color, no rash, no cyanosis. Psych: responds appropriately to questions, normal affect. Neuro: oriented x 3, CN2-12 intact grossly, motor intact, sensation intact. Vital Signs Reviewed: Yes Vital Signs Temp Pulse Resp BP Pulse Ox 06/23/18 06:50 97.8 F 86 16 108/68 97 Temperature: Afebrile Blood Pressure: Normal Pulse: Regular Respiratory Rate: Normal Medical Decision Making ED Course and Treatment: 06/23/18 07:34 Impression: 78 year old female presents complaining of productive cough for the past 2 weeks and reports she "passed out" yesterday associated with dizziness and nausea. Patient constantly talks about pervious admissions to hospitals at multiple other facilities. Plan: -- Labs -- EKG -- Reassess and disposition Prior Visits: Notes and results from previous visits were reviewed. Progress Notes: 06/23/18 07:50 currently am attempting to get [place] [facility] at this time i do not feel a workup is indicated as the patient has a normal physical examination. 06/23/18 09:[address] cuevas, patient's pcp, states that the patient was tx for periorbital cellulitis inpatient and noted significant improvement of symptoms. patient was [place] [facility] confirms the patient is homeless and was dc on keflex. 06/23/18 10:44 patient was seen by [facility], and ws provided resources for homelessness - Lab Interpretations I have reviewed the lab results: Yes - EKG Interpretation EKG Interpretation (Text): 06/23/18 07:21 NSR @ 80 bpm, nml qrs, nml axis, no acute sttw abn. Interpreted by ED Physician: Yes Type: 12 lead EKG - Scribe Statement The provider has reviewed the documentation as recorded by the Sae Rooney Provider Scribe Attestation: All medical record entries made by the Scribe were at my direction and personally dictated by me. I have reviewed the chart and agree that the record accurately reflects my personal performance of the history, physical exam, medical decision making, and the department course for this patient. I have also personally directed, reviewed, and agree with the discharge instructions and disposition. Disposition/Present on Arrival - Present on Arrival Any Indicators Present on Arrival: No History of DVT/PE: No History of Uncontrolled Diabetes: No Urinary Catheter: No History of Decub. Ulcer: No History Surgical Site Infection Following: None - Disposition Have Diagnosis and Disposition been Completed?: Yes Diagnosis: Syncope, Homelessness, Dehydration Disposition: HOME/ ROUTINE Disposition Time: 12:34 Patient Plan: Discharge Patient Problems: Current Active Problems Problem Status Onset Periorbital cellulitis Resolved Condition: STABLE Discharge Instructions (ExitCare): Syncope (ED), Syncope (Fainting), Dehydration, Adult (DC) Additional Instructions: stay well hydrated (water). follow up with your primary care doctor as soon as possible. Referrals: Poncho Cuevas [Primary Care Provider] - Follow up with primary Forms: [employer] (Nauruan)
[2018-06-23 09:45] LABS: BASO # 0.02 K/mm3 (0.0-2.0); BASO % 0.2 % (0.0-3.0); EOS # 0.2 (0.0-0.7); EOS % 2.5 % (1.5-5.0); HEMOGLOBIN 11.9 g/dL (12.0-16.0); LYMPH # 1.6 (1.2-3.4); MEAN CORPUSCULAR HEMOGLOBIN 27.9 pg (25.0-35.0); MEAN CORPUSCULAR HGB CONC 31.4 g/dl (31.0-37.0); MEAN PLATELET VOLUME 9.9 fl (7.0-11.0); MONO # 0.9 (0.1-0.6); MONO % 8.9 % (1.0-6.0); RBC 4.26 10^6/uL (3.5-6.1); RED CELL DISTRIBUTION WIDTH 13.7 % (11.5-14.5); WHITE BLOOD COUNT 9.8 10^3/uL (4.5-11.0)
[2018-06-23 09:53] LABS: ALB/GLOB RATIO 1.4 (1.1-1.8); ALT/SGPT 26 U/L (7-56); AST/SGOT 38 U/L (14-36); BLOOD UREA NITROGEN 28 mg/dL (7-21); CALCIUM 9.1 mg/dL (8.4-10.5); GFR NON-AFRICAN AMERICAN > 60
[2018-06-23 13:44] VITALS: TEMP 98
--- NOTE | 2018-06-23 18:37 | CARD ---
APPROVED REPORT Date of service: 06/23/2018 EKG Measurement Heart [id number] <Conclusion> Normal sinus rhythm Nonspecific T wave abnormality Abnormal ECG
[2018-06-24 00:30] VITALS: O2SAT 100
[2018-06-24 01:00] VITALS: BP 121/72; PULSE 85; RESP 16
== END 2018-06-24 00:30 | disposition home or self-care (01) ==
LOC: ED 06:29
DX: R55 Syncope and collapse (principal); E86.0 Dehydration; Z59.0 Homelessness; I10 Essential (primary) hypertension; E03.9 Hypothyroidism, unspecified; E78.5 Hyperlipidemia, unspecified

== ENCOUNTER 2018-07-22 16:40 | Emergency (ER) | payer MEDICARE, MEDICAID ==
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
[2018-07-22 17:21] VITALS: BMI 16.8
[2018-07-22 18:30] VITALS: BP 130/75; PULSE 88; RESP 18; TEMP 98; O2SAT 97
[2018-07-24] MEDS ORDERED: Bacitracin 500 Units/gm Oint Foilpak UD ONE (12:07)
== END 2018-07-22 17:55 | disposition left against medical advice (07) ==
LOC: ED 16:40
DX: Z02.89 Encounter for other administrative examinations (principal); Z00.00 Encounter for general adult medical examination without abnormal findings